=== PATIENT | female | born 1970 | race Caucasian/White ===

== ENCOUNTER 2016-02-13 14:13 | Emergency (ER) | payer OTHER ==
--- NOTE | 2016-02-13 14:57 | UC ---
Ear Complaint HPI - HPI Summary HPI Summary: The patient comes in today for: 1. Right ear pain: Onset: One week ago, onset slight pain. 4 days ago--significant worsening. Palliative/provocative: Heating pad helps. But, she has not been able to sleep at night. Quality: Sharp lasting a "second or two," and constant pounding. Region: Right with radiation down to the jaw. Severity: 6/10 Time: Constant. Associated symptoms: Hearing: Poor hearing in the right ear to begin with--lost hearing when diabetic. Discharge. Brown purulent discharge. Previous problems: None since a child. Fever: 99.8 at home today. High blood pressure: She is on lisinopril for this. She states that her blood pressure goes up when she is in pain. Home Rx: Advil and heating pad. She drove here. * - History of Current Complaint Chief Complaint: UCGeneralIllness Stated Complaint: pain in head/fever Time Seen by Provider: 02/13/16 14:49 Hx Obtained From: Patient Hx Last Menstrual Period: 1992 ?: No - Allergies/Home Medications Allergies/Adverse Reactions: Allergies Allergy/AdvReac Type Severity Reaction Status Date / Time Pneumococcal Vaccine Allergy Rash Verified 02/13/16 14:25 Oxybutynin AdvReac See Comment Verified 02/13/16 14:25 Paroxetine [From Paxil] AdvReac See Comment Verified 02/13/16 14:25 PMH/Surg Hx/FS Hx/Imm Hx Previously Healthy: No Endocrine History Of: Reports: Diabetes Denies: Thyroid Disease, Hyperthyroidism, Hypothyroidism, Dyslipidemia Cardiovascular History Of: Reports: Hypertension Denies: Cardiac Disorders, Pacemaker/ICD, Myocardial Infarction, Congestive Heart Failure, Atrial Fibrillation, Deep Vein Thrombosis, Bleeding Disorders Respiratory History Of: Denies: COPD, Asthma, Bronchitis, Pneumonia, Pulmonary Embolism GI/ History Of: Reports: Gastroesophageal Reflux, Kidney Stones - RT URETERAL , Renal Disease - She denies any renal failure. She had a stent put in left kidney Denies: Ulcer, Gastrointestinal Bleed, Gall Bladder Disease, Diverticulitis, Urosepsis Neurological History Of: Denies: TIA, CVA, Dementia, Seizures, Migraine Psychological History Of: Reports: Anxiety, Depression Denies: Bipolar Disorder, Schizophrenia, Post Traumatic Stress Disorder Cancer History Of: Denies: Lung Cancer, Colorectal Cancer, Breast Cancer, Prostate Cancer, Cervical Cancer Other History Of: Negative For: HIV, Hepatitis B, Hepatitis C, Anticoagulant Therapy - Surgical History Surgical History: Yes Surgery Procedure, Year, and Place: HYSTERECTOMY, APPENDECTOMY, CHOLECYSTECTOMY , KNEE OPERATIONS, EAR OPERATIONS, , KIDNEY STENTING (LEFT) - Family History Known Family History: Positive: Cardiac Disease, Hypertension - Social History Occupation: Unemployed Alcohol Use: None Substance Use Type: None Smoking Status (MU): Light Every Day Tobacco Smoker Type: Cigarettes Amount Used/How Often: 1 PPD - Immunization History Most Recent Influenza Vaccination: 01/11/14 Most Recent Tetanus Shot: unknown Most Recent Pneumonia Vaccination: 2013 Review of Systems Constitutional: Negative Skin: Negative Eyes: Negative ENT: Ear Ache Respiratory: Cough - Non-productive. Cardiovascular: Negative Gastrointestinal: Negative Genitourinary: Negative All Other Systems Reviewed And Are Negative: Yes Physical Exam Triage Information Reviewed: Yes Appearance: Well-Appearing, Well-Nourished, Pain Distress - She would grimace from time to time regarding her right ear pain. Vital Signs: Initial Vital Signs Temp 98.2 F 02/13/16 14:28 Pulse 128 02/13/16 14:28 Resp 18 02/13/16 14:28 BP 177/116 02/13/16 14:28 Pulse Ox 99 02/13/16 14:28 Vital Signs Reviewed: Yes Eyes: Positive: Conjunctiva Clear ENT: Positive: Hearing grossly normal, Other: - Right ear: Purulent discharge along the canal lui. Positive similar material behind the ear drum. No obvious perforation seen. Pulling on the right pinna made the pain worse. Also , tragal pressure was the same. Left ear: TM castellon and translucent.. Negative : Pharyngeal erythema, Nasal congestion, Nasal drainage Dental: Negative: Gross Decay/Caries @, Dental Fracture @ Neck: Positive: Supple, Nontender, No Lymphadenopathy, Other: - She had tenderness to palpation of the right anterior cervical chain, but no marked lymphadenopathy.. Negative: Nuchal Rigidity Respiratory: Positive: Lungs clear, No respiratory distress, No accessory muscle use. Negative: Rhonchi, Wheezing Cardiovascular: Positive: RRR, No Murmur Abdomen Description: Positive: Nontender, No Organomegaly, Soft. Negative: Distended, Guarding Musculoskeletal: Positive: Strength Intact, ROM Intact Neurological: Positive: Alert, Muscle Tone Normal Psychological: Positive: Age Appropriate Behavior, Consolable Skin: Negative: rashes, breakdown Ear Complaint Course/Dx - Course Course Of Treatment: The patient was told that I was concerned over her tachycardia in light of her diabetes, hypertension, and smoking history. However, she stated that this was not uncommon with her and she has been evaluated for it in the past. However, at times, it seemed she confused tachycardia and high blood pressure. However, she declined any EKG and referral to ER for further evaluation. She only wanted treatment for her ear and pain control. - Differential Dx/Diagnosis Provider Diagnoses: Right ear pain (otitis media, otitis externa). Tachycardia (etiology undetermined at this time--possibly pain related). Discharge - Discharge Plan Condition: Stable Disposition: HOME Patient Education Materials: Otitis Externa (ED), Otitis Media (ED) Referrals: [facility] [Outside] Additional Instructions: Please see your primary care provider in about three days to see how well you are doing. If you don't have a primary care provider, please contact the physician referral service. If you can't get in timely, please you may come back to see us until you can. If you get worse, please be seen sooner by us or the ER.
[2016-02-13 15:12] VITALS: BP 160/96
== END 2016-02-13 15:45 | disposition left against medical advice (07) ==
LOC: UCEAST 14:13
DX: H66.91 Otitis media, unspecified, right ear (principal); H60.91 Unspecified otitis externa, right ear; R00.0 Tachycardia, unspecified; F17.210 Nicotine dependence, cigarettes, uncomplicated
CPT/HCPCS: 99212; G0463

== ENCOUNTER 2016-03-20 11:41 | Emergency (ER) | payer SELFPAY ==
[2016-03-20] MEDS ORDERED: Ondansetron INJ* 2 MG/ML VIAL IV ONE (13:05)
[2016-03-20] MEDS ORDERED: HYDROmorphone INJ* 1 MG/ML CARPUJECT SYRINGE IV ONE (13:05)
[2016-03-20] MEDS ORDERED: Ketorolac INJ* 30 MG/ML 1 ML VIAL IV ONE (13:05)
[2016-03-20] MEDS ORDERED: Ondansetron INJ* 2 MG/ML VIAL ONE (13:24)
[2016-03-20] MEDS: NS 0.9% 1000 ML* 2,000 ML IV ONE (13:38)
[2016-03-20 13:52] LABS: Hematocrit 38 % (35-47); Hemoglobin 12.3 g/dl (12.0-16.0); Mean Corpuscular HGB Conc 33 g/dl (31-36); Mean Corpuscular Hemoglobin 25 pg (27-31); Mean Corpuscular Volume 77 fL (80-97); Mean Platelet Volume 8 um3 (7.4-10.4); Red Cell Distribution Width 18 % (10.5-15); White Blood Count 21.8 10^3/ul (3.5-10.8)
[2016-03-20 13:53] LABS: Comments Flag Yes
[2016-03-20 13:54] LABS: Add Diff/Slide Review? Slide Review Added
--- NOTE | 2016-03-20 14:02 | RAD ---
CLINICAL HISTORY: Right flank pain COMPARISON: January 06, 2016 TECHNIQUE: Multiple contiguous axial CT scans were obtained of the abdomen and pelvis, without intravenous contrast enhancement. Coronal and sagittal multiplanar reformations are submitted for review. Oral contrast was not administered. FINDINGS: The study is limited by the lack of intravenous contrast. This limits evaluation of the solid organs and vasculature. LUNG BASES: The lung bases are clear. LIVER: The liver is normal in shape, size, contour, and attenuation. BILE DUCTS: There is no intrahepatic or extrahepatic biliary dilatation. GALLBLADDER: The gallbladder is not visualized. Surgical clips are noted in the gallbladder fossa. PANCREAS: The pancreas is normal, without mass or ductal dilatation. SPLEEN: Normal in size and appearance. UPPER GI TRACT: Evaluation of the gastrointestinal tract is limited by incomplete gastric distention. The upper GI tract is unremarkable. SMALL BOWEL AND MESENTERY: Focally prominent small bowel is noted in the left hemiabdomen, which is felt to be an artifact of peristalsis. There is no obstruction. COLON: The colon is normal in contour, course, caliber. There is no pericolonic inflammatory change. ADRENALS: Normal bilaterally. KIDNEYS: A percutaneous nephrostomy catheter is noted on the left. The left ureteral calculus noted on previous examinations is not clearly evident on the current examination. The right, there is no appreciable hydronephrosis or nephrolithiasis BLADDER: The bladder is smooth in contour. PELVIC ORGANS: The pelvic organs are not visualized. AORTA: There is calcific atherosclerotic disease of the abdominal aorta and its branches, without aneurysmal dilatation IVC: Unremarkable LYMPH NODES: There is no lymphadenopathy by size criteria. ABDOMINAL WALL: There is no evidence for abdominal wall hernia. BONES AND SOFT TISSUES: There are minimal diffuse degenerative changes. OTHER: None IMPRESSION: 1. STATUS POST LEFT PERCUTANEOUS NEPHROSTOMY. 2. NO HYDRONEPHROSIS OR NEPHROLITHIASIS ON THE RIGHT.
[2016-03-20 14:09] LABS: Troponin I 0.03 ng/mL (<0.04)
[2016-03-20 14:10] LABS: C Reactive Protein 231.28 mg/L (< 5.00); Calcium 9.6 mg/dL (8.6-10.3); EGFR African American 49.8 (>60); EGFR Non-African American 38.7 (>60); Globulin 3.9 g/dL (2-4); Potassium 3.8 mmol/L (3.5-5.0); Total Bilirubin 0.6 mg/dL (0.2-1.0); Total Protein 7.9 g/dL (6.4-8.9)
[2016-03-20] MEDS ORDERED: Ciprofloxacin 400MG IVPREMIX(* 400 MG/200 ML BAG IVPB ONE (14:11)
[2016-03-20] MEDS ORDERED: Acetaminophen TAB* 325 MG PO ONE (14:13)
[2016-03-20 15:53] LABS: Urine Bacteria Absent (Absent); Urine Bilirubin Negative (Negative); Urine Glucose Negative (Negative); Urine Nitrite Negative (Negative)
--- NOTE | 2016-03-20 16:42 | ED ---
Alejo Kaufman Benjamin, scribed for Raul Peacock MD on 03/20/16 at 1320 . Abdominal Pain/Female - HPI Summary HPI Summary: 45yo female c/o severe right sided abd pain that radiates to right flank, groin , and down the right leg. Pt also reports fever of 103F and some CP. Currently has a left sided nephrostomy tube and chronic left sided pain from the tubes. Pt states that the right sided pain is acute however. Hx of kidney stones and urosepsis. - History of Current Complaint Chief Complaint: EDFlankPain Stated Complaint: FLANK PAIN Time Seen by Provider: 03/20/16 12:27 Hx Obtained From: Patient, Family/Heel Sprayer - Hx Last Menstrual Period: 1992 Onset/Duration: Sudden Onset, Lasting Days, Still Present Timing: Constant Severity Initially: Severe Severity Currently: Severe Pain Intensity: 9 Pain Scale Used: 0-10 Numeric Location: Discrete At: RLQ Radiates: Yes Radiates to: Flank - right, Other - groin, right leg Aggravating Factor(s): Movement, Other: - touch Alleviating Factor(s): Nothing Associated Signs and Symptoms: Positive: Fever, Chest Pain, Back Pain - right flank pain Allergies/Adverse Reactions: Allergies Allergy/AdvReac Type Severity Reaction Status Date / Time Pneumococcal Vaccine Allergy Rash Verified 02/13/16 14:25 Oxybutynin AdvReac See Comment Verified 02/13/16 14:25 Paroxetine [From Paxil] AdvReac See Comment Verified 02/13/16 14:25 PMH/Surg Hx/FS Hx/Imm Hx Endocrine/Hematology History: Reports: Hx Diabetes Denies: Hx Anticoagulant Therapy, Hx Thyroid Disease Cardiovascular History: Reports: Hx Hypertension Denies: Hx Congestive Heart Failure, Hx Deep Vein Thrombosis, Hx Myocardial Infarction, Hx Pacemaker/ICD Respiratory History: Denies: Hx Asthma, Hx Chronic Obstructive Pulmonary Disease (COPD), Hx Lung Cancer, Hx Pneumonia, Hx Pulmonary Embolism GI History: Reports: Other GI Disorders - Pancreatitis Denies: Hx Gall Bladder Disease, Hx Gastrointestinal Bleed, Hx Ulcer, Hx Urosepsis History: Reports: Hx Kidney Stones - RT URETERAL , Hx Renal Disease - She denies any renal failure. She had a stent put in left kidney, Other Problems/Disorders Denies: Hx Dialysis Sensory History: Reports: Hx Contacts or Glasses, Hx Hearing Problem - [place] right ear Opthamlomology History: Reports: Hx Contacts or Glasses Neurological History: Denies: Hx Dementia, Hx Migraine, Hx Seizures, Hx Transient Ischemic Attacks (TIA) Psychiatric History: Reports: Hx Anxiety, Hx Depression, Other Psychiatric Issues/Disorders - borderline personality disorder Denies: Hx Schizophrenia, Hx Bipolar Disorder - Surgical History Surgery Procedure, Year, and Place: HYSTERECTOMY, APPENDECTOMY, CHOLECYSTECTOMY , KNEE OPERATIONS, EAR OPERATIONS, , KIDNEY STENTING (LEFT) Infectious Disease History: No Infectious Disease History: Denies: Traveled Outside the [place] in Last 30 Days - Family History Known Family History: Positive: None, Cardiac Disease, Hypertension - Social History Alcohol Use: None Hx Substance Use: No Substance Use Type: Reports: None Hx Tobacco Use: Yes Smoking Status (MU): Light Every Day Tobacco Smoker Type: Cigarettes Amount Used/How Often: 1 PPD Review of Systems Positive: Fever ENT: Negative Positive: Chest Pain Respiratory: Negative Positive: Abdominal Pain - acute RLQ, chronic left side Positive: flank pain - right Musculoskeletal: Negative Skin: Negative Neurological: Negative Psychological: Normal All Other Systems Reviewed And Are Negative: Yes Physical Exam Triage Information Reviewed: Yes Vital Signs On Initial Exam: Initial Vitals Temp Pulse Resp BP Pulse Ox 103.1 F 141 28 155/95 98 03/20/16 11:52 03/20/16 11:52 03/20/16 11:52 03/20/16 11:52 03/20/16 11:52 Vital Signs Reviewed: Yes Appearance: Positive: Well-Appearing, Pain Distress - moderate, Obese Skin: Positive: Warm, Skin Color Reflects Adequate Perfusion, Dry Head/Face: Positive: Normal Head/Face Inspection Eyes: Positive: Normal ENT: Positive: Normal ENT inspection Neck: Positive: Supple, Nontender Respiratory/Lung Sounds: Positive: Clear to Auscultation, Breath Sounds Present Cardiovascular: Positive: RRR Abdomen Description: Positive: No Organomegaly, Soft, Other: - tenderness on right abdomen; nephrostomy tube placed on left side Bowel Sounds: Positive: Present Musculoskeletal: Positive: Strength/ROM Intact Neurological: Positive: Sensory/Motor Intact, Alert, Oriented to Person Place, Time, CN Intact II-III, Reflexes Intact Psychiatric: Positive: Anxious Diagnostics - Vital Signs Vital Signs Temp Pulse Resp BP Pulse Ox 03/20/16 11:52 103.1 F 141 28 155/95 98 - Laboratory Lab Results: Lab Results 03/20/16 03/20/16 03/20/16 Range/Units 13:40 13:40 13:40 WBC 21.8 H (3.5-10.8) 10^3/ul RBC 4.90 (4.0-5.4) 10^6/ul Hgb 12.3 (12.0-16.0) g/dl Hct 38 (35-47) % MCV 77 L (80-97) fL MCH 25 L (27-31) pg MCHC 33 (31-36) g/dl RDW 18 H (10.5-15) % Plt Count 244 (150-450) 10^3/ul MPV 8 (7.4-10.4) um3 Neut % (Auto) 83.1 H (38-83) % Lymph % (Auto) 8.6 L (25-47) % [place] % (Auto) 7.2 (1-9) % Eos % (Auto) 0.4 (0-6) % Baso % (Auto) 0.7 (0-2) % Absolute Neuts (auto) 18.1 H (1.5-7.7) 10^3/ul Absolute Lymphs (auto) 1.9 (1.0-4.8) 10^3/ul Absolute Monos (auto) 1.6 H (0-0.8) 10^3/ul Absolute Eos (auto) 0.1 (0-0.6) 10^3/ul Absolute Basos (auto) 0.2 (0-0.2) 10^3/ul Absolute Nucleated RBC 0.01 10^3/ul Nucleated RBC % 0.1 INR (Anticoag Therapy) 1.06 (0.89-1.11) APTT 31.1 (26.0-36.3) seconds Sodium 132 L (133-145) mmol/L Potassium 3.8 (3.5-5.0) mmol/L Chloride 102 (101-111) mmol/L Carbon Dioxide 21 L (22-32) mmol/L Anion Gap 9 (2-11) mmol/L BUN 16 (6-24) mg/dL Creatinine 1.45 H (0.51-0.95) mg/dL Est GFR ( Amer) 49.8 (>60) Est GFR (Non-Af Amer) 38.7 (>60) BUN/Creatinine Ratio 11.0 (8-20) Glucose 256 H (70-100) mg/dL Lactic Acid (0.5-2.0) mmol/L Calcium 9.6 (8.6-10.3) mg/dL Total Bilirubin 0.60 (0.2-1.0) mg/dL AST 9 L (13-39) U/L ALT 10 (7-52) U/L Alkaline Phosphatase 121 H (34-104) U/L Troponin I 0.03 (<0.04) ng/mL C-Reactive Protein 231.28 H (< 5.00) mg/L Total Protein 7.9 (6.4-8.9) g/dL Albumin 4.0 (3.2-5.2) g/dL Globulin 3.9 (2-4) g/dL Albumin/Globulin Ratio 1.0 (1-3) Urine Color Urine Appearance Urine pH (5-9) Ur Specific [place] (1.010-1.030) Urine Protein (Negative) Urine Ketones (Negative) Urine Blood (Negative) Urine Nitrate (Negative) Urine Bilirubin (Negative) Urine Urobilinogen (Negative) Ur Leukocyte Esterase (Negative) Urine WBC (Auto) (Absent) Urine RBC (Auto) (Absent) Ur Squamous Epith Cells (Absent) Urine Bacteria (Absent) Urine Glucose (Negative) 03/20/16 03/20/16 Range/Units 13:40 15:05 WBC (3.5-10.8) 10^3/ul RBC (4.0-5.4) 10^6/ul Hgb (12.0-16.0) g/dl Hct (35-47) % MCV (80-97) fL MCH (27-31) pg MCHC (31-36) g/dl RDW (10.5-15) % Plt Count (150-450) 10^3/ul MPV (7.4-10.4) um3 Neut % (Auto) (38-83) % Lymph % (Auto) (25-47) % [place] % (Auto) (1-9) % Eos % (Auto) (0-6) % Baso % (Auto) (0-2) % Absolute Neuts (auto) (1.5-7.7) 10^3/ul Absolute Lymphs (auto) (1.0-4.8) 10^3/ul Absolute Monos (auto) (0-0.8) 10^3/ul Absolute Eos (auto) (0-0.6) 10^3/ul Absolute Basos (auto) (0-0.2) 10^3/ul Absolute Nucleated RBC 10^3/ul Nucleated RBC % INR (Anticoag Therapy) (0.89-1.11) APTT (26.0-36.3) seconds Sodium (133-145) mmol/L Potassium (3.5-5.0) mmol/L Chloride (101-111) mmol/L Carbon Dioxide (22-32) mmol/L Anion Gap (2-11) mmol/L BUN (6-24) mg/dL Creatinine (0.51-0.95) mg/dL Est GFR ( Amer) (>60) Est GFR (Non-Af Amer) (>60) BUN/Creatinine Ratio (8-20) Glucose (70-100) mg/dL Lactic Acid 1.4 (0.5-2.0) mmol/L Calcium (8.6-10.3) mg/dL Total Bilirubin (0.2-1.0) mg/dL AST (13-39) U/L ALT (7-52) U/L Alkaline Phosphatase (34-104) U/L Troponin I (<0.04) ng/mL C-Reactive Protein (< 5.00) mg/L Total Protein (6.4-8.9) g/dL Albumin (3.2-5.2) g/dL Globulin (2-4) g/dL Albumin/Globulin Ratio (1-3) Urine Color Yellow Urine Appearance Cloudy Urine pH 6.0 (5-9) Ur Specific [place] 1.011 (1.010-1.030) Urine Protein 2+(100 mg/dl) H (Negative) Urine Ketones Negative (Negative) Urine Blood 1+ H (Negative) Urine Nitrate Negative (Negative) Urine Bilirubin Negative (Negative) Urine Urobilinogen Negative (Negative) Ur Leukocyte Esterase 3+ H (Negative) Urine WBC (Auto) 3+(>20/hpf) H (Absent) Urine RBC (Auto) 3+(>10/hpf) H (Absent) Ur Squamous Epith Cells Present H (Absent) Urine Bacteria Absent (Absent) Urine Glucose Negative (Negative) Result Diagrams: 03/20/16 13:40 03/20/16 13:40 Lab Statement: Any lab studies that have been ordered have been reviewed, and results considered in the medical decision making process. - CT CT A/P WO CT Interpretation: No Acute Changes - IMPRESSION: 1. STATUS POST LEFT PERCUTANEOUS NEPHROSTOMY. 2. NO HYDRONEPHROSIS OR NEPHROLITHIASIS ON THE RIGHT. CT Interpretation Completed By: Radiologist Abdominal Pain Fem Course/Dx - Course Course Of Treatment: Edna Weber presented to the ED with about 20 hours of right flank pain getting steadily worse. She was febrile, tachypneic and tachycardic on arrival. She has a history of kidney stones and has a left nephrostomy tube put in in [facility]. She received immediate IV fluids, antibiotics and underwent lab testing and CT scan. Her WBC's were elevated at 22K and her urine from the bladder was positive for WBC's and RBC's but not nitrites. Her HR improved but she continued to be tachy and she was transferred to [facility] as we have no urological coverage at this time. - Diagnoses Provider Diagnoses: Pyelonephritis, Severe sepsis - Provider Notifications Discussed Care Of Patient With: Dr. Branch - Urology [id number], Dr. Cordero - Hospitalist - [id number] Instructed by Provider To: Transfer - Critical Care Time Critical Care Time: 30-74 min Discharge - Discharge Plan Condition: Stable Disposition: TRANS HIGHER LVL OF CARE FAC The documentation as recorded by the Alejo harrell Benjamin accurately reflects the service I personally performed and the decisions made by , Raul Peacock MD.
[2016-03-20] MEDS ORDERED: HYDROmorphone INJ* 1 MG/ML CARPUJECT SYRINGE IV SLOW PU ONE (16:56)
[2016-03-20 17:40] VITALS: BP 101/66
== END 2016-03-20 17:50 | disposition short-term general hospital (02) ==
LOC: ED 11:41
DX: A41.9 Sepsis, unspecified organism (principal); R65.20 Severe sepsis without septic shock; N12 Tubulo-interstitial nephritis, not specified as acute or chronic; R10.31 Right lower quadrant pain; R07.9 Chest pain, unspecified; R50.9 Fever, unspecified; M54.9 Dorsalgia, unspecified; F17.210 Nicotine dependence, cigarettes, uncomplicated
CPT/HCPCS: 36415; 74176; 80053; 81003; 81015; 83605; 84484; 85025; 85610; 85730; 86140; 87040; 87077; 87086; 87186; 87205; 96374; 96375; 99282; A9270-GY; J0744; J1170; J1885; J2405

== ENCOUNTER → 2016-07-25 10:44 | Emergency (ER) | payer SELFPAY ==
[~2016-07-25 10:44] MED LIST: Morphine INJ* 4 MG/ML 1 ML SYRINGE IV ONE; NS 0.9% 1000 ML* 1,000 ML IV ONE; Ondansetron INJ* 2 MG/ML VIAL IV ONE; cefTRIAXone VIAL(*) 1,000 MG in NS 0.9% 50 ML* 50 ML IVPB ONE; cefTRIAXone(*) 1 GM in NS 0.9% 50 ML* 50 ML IVPB ONE
[2016-07-25 11:29] LABS: Hematocrit 39 % (35-47); Hemoglobin 12.4 g/dl (12.0-16.0); Mean Corpuscular HGB Conc 32 g/dl (31-36); Mean Corpuscular Hemoglobin 25 pg (27-31); Mean Corpuscular Volume 78 fL (80-97); Red Blood Count 5.04 10^6/ul (4.0-5.4); Red Cell Distribution Width 17 % (10.5-15); White Blood Count 20.6 10^3/ul (3.5-10.8)
--- NOTE | 2016-07-25 11:34 | RAD ---
Indication: Left flank pain. CT of the abdomen and pelvis was performed without oral or IV contrast demonstration. Comparison is made with previous exam dated March 20, 2016. Lung bases demonstrate no pleural fluid, nodules or masses. Heart is of normal size without evidence of pericardial effusion. The liver is normal in size. No focal lesions or intrahepatic duct dilatation is noted. Patient status post cholecystectomy. Common duct is not dilated. Pancreas demonstrates no mass or pancreatic duct dilatation. The spleen is normal in size. There is moderate degree of left hydronephrosis. The left nephrostomy tube has been removed. Hydroureter is noted with a calculi in the proximal left ureter measuring 7 mm in greatest dimension at the level of L3-L4. Perinephric infiltration of fat is noted consistent with calyceal rupture. The right kidney shows no hydronephrosis. Atherosclerotic aorta is noted. No dilated loops of bowel are noted. The colon is filled with stool. Small bowel demonstrates no abnormal dilatation. The urinary bladder is otherwise unremarkable. The patient appears to be status post hysterectomy. IMPRESSION: Moderate to severe left hydronephrosis with 7 mm calculi in the proximal left ureter. Perinephric infiltration of fat is noted consistent with calyceal rupture.
[2016-07-25 11:40] LABS: Albumin 3.9 g/dL (3.2-5.2); BUN/Creatinine Ratio 11.4 (8-20); C Reactive Protein 124.81 mg/L (< 5.00); Calcium 9.3 mg/dL (8.6-10.3); Comments Flag Yes; EGFR African American 59.9 (>60); EGFR Non-African American 46.6 (>60); Magnesium 1.8 mg/dL (1.9-2.7); Total Bilirubin 0.5 mg/dL (0.2-1.0); Total Protein 7.9 g/dL (6.4-8.9)
[2016-07-25 11:46] LABS: Add Diff/Slide Review? Slide Review Added
[2016-07-25 12:03] LABS: Mean Platelet Volume 8 um3 (7.4-10.4)
[2016-07-25 13:22] LABS: Potassium 4.3 mmol/L (3.5-5.0)
[2016-07-25 13:45] LABS: Urine Bacteria 1+ (Absent); Urine Bilirubin Negative (Negative); Urine Glucose Negative (Negative); Urine Nitrite Positive (Negative)
[2016-07-25] MEDS: NS 0.9% 1000 ML* 2,000 ML IV ONE (14:03)
--- NOTE | 2016-07-25 15:18 | ED ---
Hattie Kaufman Rebecca, scribed for Jonathan Avendano MD on 07/25/16 at 1051 . Abdominal Pain/Female - HPI Summary HPI Summary: Pt is a 46 y/o F who presents to ED c/o severe abdominal pain. Pain began suddenly 4 days ago and has been intermittent since onset, improving for a few days then worsening yesterday. Pain is in the LLQ and LUQ with radiation to the L flank. Pain is currently severe, ranked 9/10 and characterized as sharp. Sx aggravated and alleviated by nothing. Additionally c/o fever, N/V/D. Reports temperature was 102 last night, breaking this morning by taking 800 mg Advil at 0500. PMHx sepsis (4x) and kidney stones. Was diagnosed by [facility] with a 5-7 mm renal calculi on the left side. PSHx nephrostomy tube placement for 6 months, which fell out 3 weeks ago. She has been following up with Dr. Pitts at [facility]. - History of Current Complaint Chief Complaint: EDFlankPain Stated Complaint: FLANK PAIN Time Seen by Provider: 07/25/16 10:50 Hx Obtained From: Patient Hx Last Menstrual Period: 1992 Onset/Duration: Sudden Onset, Still Present, Worse Since - yesterday Timing: Intermittent Episode Lasting Severity Initially: Moderate Severity Currently: Severe Pain Intensity: 9 Pain Scale Used: 0-10 Numeric Location: Discrete At: LUQ, Discrete At: LLQ Radiates: Yes Radiates to: Flank - Left Character: Sharp Aggravating Factor(s): Nothing Alleviating Factor(s): Nothing Associated Signs and Symptoms: Positive: Fever, Nausea, Vomiting, Diarrhea Allergies/Adverse Reactions: Allergies Allergy/AdvReac Type Severity Reaction Status Date / Time Pneumococcal Vaccine Allergy Rash Verified 02/13/16 14:25 Oxybutynin AdvReac See Comment Verified 02/13/16 14:25 Paroxetine [From Paxil] AdvReac See Comment Verified 02/13/16 14:25 Home Medications: Home Medications Ascorbic Acid TAB* [Vitamin C TAB*] 250 mg PO DAILY 07/25/16 [History Confirmed 07/25/16] Ferrous Sulfate TAB* 325 mg PO DAILY 07/25/16 [History Confirmed 07/25/16] PMH/Surg Hx/FS Hx/Imm Hx Endocrine/Hematology History: Reports: Hx Diabetes Denies: Hx Anticoagulant Therapy, Hx Thyroid Disease Cardiovascular History: Reports: Hx Hypertension Denies: Hx Congestive Heart Failure, Hx Deep Vein Thrombosis, Hx Myocardial Infarction, Hx Pacemaker/ICD Respiratory History: Denies: Hx Asthma, Hx Chronic Obstructive Pulmonary Disease (COPD), Hx Lung Cancer, Hx Pneumonia, Hx Pulmonary Embolism GI History: Reports: Other GI Disorders - Pancreatitis Denies: Hx Gall Bladder Disease, Hx Gastrointestinal Bleed, Hx Ulcer, Hx Urosepsis History: Reports: Hx Kidney Stones - RT URETERAL , Hx Renal Disease - She denies any renal failure. She had a stent put in left kidney, Other Problems/Disorders Denies: Hx Dialysis Sensory History: Reports: Hx Contacts or Glasses, Hx Hearing Problem - [facility] right ear Opthamlomology History: Reports: Hx Contacts or Glasses Neurological History: Denies: Hx Dementia, Hx Migraine, Hx Seizures, Hx Transient Ischemic Attacks (TIA) Psychiatric History: Reports: Hx Anxiety, Hx Depression, Other Psychiatric Issues/Disorders - borderline personality disorder Denies: Hx Schizophrenia, Hx Bipolar Disorder - Surgical History Surgery Procedure, Year, and Place: HYSTERECTOMY, APPENDECTOMY, CHOLECYSTECTOMY , KNEE OPERATIONS, EAR OPERATIONS, , KIDNEY STENTING (LEFT) Infectious Disease History: No Infectious Disease History: Denies: Traveled Outside the [place] in Last 30 Days - Family History Known Family History: Positive: Cardiac Disease, Hypertension - Social History Alcohol Use: None Hx Substance Use: No Substance Use Type: Reports: None Hx Tobacco Use: Yes Smoking Status (MU): Light Every Day Tobacco Smoker Type: Cigarettes Amount Used/How Often: 1 PPD Review of Systems Positive: Fever - 102 last night, per pt Positive: Abdominal Pain - LLQ, LUQ, L flank, Vomiting, Diarrhea, Nausea All Other Systems Reviewed And Are Negative: Yes Physical Exam - Summary Physical Exam Summary: VITAL SIGNS: Reviewed. GENERAL: Patient is an obese female with acute distress secondary to L flank pain. She seems warm to touch. HEAD AND FACE: Normocephalic and atraumatic. EYES: PERRLA, EOMI x 2, No injected conjunctiva. EARS: Hearing grossly intact. Ear canals and tympanic membranes are WNL. MOUTH: She has multiple missing teeth and dry oral mucosa. NECK: Supple, trachea is midline, no adenopathy, no JVD. CHEST: Symmetric, no tenderness at palpation LUNGS: Clear to auscultation bilaterally. No wheezing or crackles. CVS: Tachycardic, S1 and S2 present, no murmurs or gallops appreciated. ABDOMEN: Soft and obese. Mild tenderness in the L flank area, positive costovertebral angle tenderness on the L side. Positive bowel sounds. No rebound no guarding, and no masses palpated. No abdominal bruit or pulsations. EXTREMITIES: FROM in all major joints, no edema, no cyanosis or clubbing. NEURO: Alert and oriented x 3. No acute neurological deficits. Speech is normal. SKIN: Dry and warm to touch. Triage Information Reviewed: Yes Vital Signs On Initial Exam: Initial Vitals Temp Pulse Resp Pulse Ox 97.7 F 124 20 100 07/25/16 10:45 07/25/16 10:45 07/25/16 10:45 07/25/16 10:45 Vital Signs Reviewed: Yes Diagnostics - Vital Signs Vital Signs Temp Pulse Resp BP Pulse Ox 07/25/16 10:47 97.7 F 125 20 214/128 100 07/25/16 10:45 97.7 F 124 20 100 - Laboratory Lab Results: Lab Results 07/25/16 07/25/16 07/25/16 Range/Units 11:16 11:16 11:16 WBC 20.6 H (3.5-10.8) 10^3/ul RBC 5.04 (4.0-5.4) 10^6/ul Hgb 12.4 (12.0-16.0) g/dl Hct 39 (35-47) % MCV 78 L (80-97) fL MCH 25 L (27-31) pg MCHC 32 (31-36) g/dl RDW 17 H (10.5-15) % Plt Count 295 (150-450) 10^3/ul MPV 8 (7.4-10.4) um3 Neut % (Auto) 82.2 (38-83) % Lymph % (Auto) 10.4 L (25-47) % [place] % (Auto) 6.1 (1-9) % Eos % (Auto) 0.7 (0-6) % Baso % (Auto) 0.6 (0-2) % Absolute Neuts (auto) 16.9 H (1.5-7.7) 10^3/ul Absolute Lymphs (auto) 2.1 (1.0-4.8) 10^3/ul Absolute Monos (auto) 1.3 H (0-0.8) 10^3/ul Absolute Eos (auto) 0.2 (0-0.6) 10^3/ul Absolute Basos (auto) 0.1 (0-0.2) 10^3/ul Absolute Nucleated RBC 0.01 10^3/ul Nucleated RBC % 0.1 Sodium 133 (133-145) mmol/L Potassium 4.3 (3.5-5.0) mmol/L Chloride 106 (101-111) mmol/L Carbon Dioxide 16 L (22-32) mmol/L Anion Gap 11 (2-11) mmol/L BUN 14 (6-24) mg/dL Creatinine 1.23 H (0.51-0.95) mg/dL Est GFR ( Amer) 59.9 (>60) Est GFR (Non-Af Amer) 46.6 (>60) BUN/Creatinine Ratio 11.4 (8-20) Glucose 192 H (70-100) mg/dL Lactic Acid 1.0 (0.5-2.0) mmol/L Calcium 9.3 (8.6-10.3) mg/dL Magnesium 1.8 L (1.9-2.7) mg/dL Total Bilirubin 0.50 (0.2-1.0) mg/dL AST 25 (13-39) U/L ALT 22 (7-52) U/L Alkaline Phosphatase 110 H (34-104) U/L Total Creatine Kinase 43 (10-223) U/L C-Reactive Protein 124.81 H (< 5.00) mg/L Total Protein 7.9 (6.4-8.9) g/dL Albumin 3.9 (3.2-5.2) g/dL Globulin 4.0 (2-4) g/dL Albumin/Globulin Ratio 1.0 (1-3) Lipase 28 (11.0-82.0) U/L Urine Color Urine Appearance Urine pH (5-9) Ur Specific [place] (1.010-1.030) Urine Protein (Negative) Urine Ketones (Negative) Urine Blood (Negative) Urine Nitrate (Negative) Urine Bilirubin (Negative) Urine Urobilinogen (Negative) Ur Leukocyte Esterase (Negative) Urine WBC (Auto) (Absent) Urine RBC (Auto) (Absent) Ur Squamous Epith Cells (Absent) Urine Bacteria (Absent) Urine Glucose (Negative) 07/25/16 Range/Units 13:15 WBC (3.5-10.8) 10^3/ul RBC (4.0-5.4) 10^6/ul Hgb (12.0-16.0) g/dl Hct (35-47) % MCV (80-97) fL MCH (27-31) pg MCHC (31-36) g/dl RDW (10.5-15) % Plt Count (150-450) 10^3/ul MPV (7.4-10.4) um3 Neut % (Auto) (38-83) % Lymph % (Auto) (25-47) % [place] % (Auto) (1-9) % Eos % (Auto) (0-6) % Baso % (Auto) (0-2) % Absolute Neuts (auto) (1.5-7.7) 10^3/ul Absolute Lymphs (auto) (1.0-4.8) 10^3/ul Absolute Monos (auto) (0-0.8) 10^3/ul Absolute Eos (auto) (0-0.6) 10^3/ul Absolute Basos (auto) (0-0.2) 10^3/ul Absolute Nucleated RBC 10^3/ul Nucleated RBC % Sodium (133-145) mmol/L Potassium (3.5-5.0) mmol/L Chloride (101-111) mmol/L Carbon Dioxide (22-32) mmol/L Anion Gap (2-11) mmol/L BUN (6-24) mg/dL Creatinine (0.51-0.95) mg/dL Est GFR ( Amer) (>60) Est GFR (Non-Af Amer) (>60) BUN/Creatinine Ratio (8-20) Glucose (70-100) mg/dL Lactic Acid (0.5-2.0) mmol/L Calcium (8.6-10.3) mg/dL Magnesium (1.9-2.7) mg/dL Total Bilirubin (0.2-1.0) mg/dL AST (13-39) U/L ALT (7-52) U/L Alkaline Phosphatase (34-104) U/L Total Creatine Kinase (10-223) U/L C-Reactive Protein (< 5.00) mg/L Total Protein (6.4-8.9) g/dL Albumin (3.2-5.2) g/dL Globulin (2-4) g/dL Albumin/Globulin Ratio (1-3) Lipase (11.0-82.0) U/L Urine Color Yellow Urine Appearance Clear Urine pH 6.0 (5-9) Ur Specific [place] 1.006 L (1.010-1.030) Urine Protein Negative (Negative) Urine Ketones Negative (Negative) Urine Blood 1+ H (Negative) Urine Nitrate Positive H (Negative) Urine Bilirubin Negative (Negative) Urine Urobilinogen Negative (Negative) Ur Leukocyte Esterase 3+ H (Negative) Urine WBC (Auto) 1+(6-10/hpf) H (Absent) Urine RBC (Auto) Trace(0-2/hpf) (Absent) Ur Squamous Epith Cells Present H (Absent) Urine Bacteria 1+ H (Absent) Urine Glucose Negative (Negative) Result Diagrams: 07/25/16 11:16 07/25/16 11:16 Lab Statement: Any lab studies that have been ordered have been reviewed, and results considered in the medical decision making process. - CT Abd/Pel CT CT Interpretation: Positive (See Comments) - Moderate to severe left hydronephrosis with 7 mm calculi in the proximal left ureter. Perinephric infiltration of fat is noted consistent with calyceal rupture. CT Interpretation Completed By: Radiologist - EKG 1225 Cardiac Rate: Tachycardia - 101 bpm EKG Rhythm: Sinus Tachycardia EKG Interpretation: No ST elevations Abdominal Pain Fem Course/Dx - Course Course Of Treatment: Pt is a 46 y/o F who presents to ED c/o severe abdominal pain. Pain began suddenly 4 days ago and has been intermittent since onset, improving for a few days then worsening yesterday. Pain is in the LLQ and LUQ with radiation to the L flank. Pain is currently severe, ranked 9/10 and characterized as sharp. Sx aggravated and alleviated by nothing. Additionally c/ o fever, N/V/D. Reports temperature was 102 last night, breaking this morning by taking 800 mg Advil at 0500. PMHx sepsis (4x) and kidney stones. Was diagnosed by [facility] with a 5-7 mm renal calculi on the left side. PSHx nephrostomy tube placement for 6 months, which fell out 3 weeks ago. She has been following up with Dr. Pitts at [facility]. Initially, vitals showed the patient was tachycardic, had low grade fever and slightly hypertensive probably secondary to pain. We obtained an IV access, patient was placed on monitor. Patient was initiated with IV fluids, Zofran for N/V and morphine for the pain. I chose morphine since the patient has hx of renal insufficiency. The patient was also started on Rocephin seeing as patient has a Hx of urosepsis. Test results show a WBC of 20.6, creatinine of 1.23, glucose of 192, consistent with her diabetes, CRP is 124. UA positive for a UTI. CT of the abdomen and pelvis shows a moderate to severe left hydronephrosis with a 7 mm calculi in the proximal L ureter, perinephric infiltration noted. The patient continued to have pain, therefore she was given another dose of morphine. I disclosed the case with Dr. Lopez. Seeing as he is not network professional and we have no urology cover, he reports to transfer patient to her primary urologist. I disclosed the case with Dr. Subramanian, covering for Dr. Garza, urologist for the patient. Dr. Subramanian accepted the patient for transfer to their facility. At this point, the patient is hemodynamically stable, AxOx3, therefore the patient will be transferred to [facility]. - Diagnoses Differential Diagnosis: Positive: Bowel Obstruction, Constipation, Diverticulitis, Ovarian Cyst, Renal Colic, Urinary Tract Infection Provider Diagnoses: UTI (urinary tract infection), Ureterolithiasis, urosepsis - Provider Notifications Discussed Care Of Patient With: Te Lopez Instructed by Provider To: Other - Advised that the patient is transferred to [facility], since that is where she has been receiving care. Discussed care of patient with Dr. Subramanian from [facility], who stated that he would look for a bed to see if he can accept her. Discharge - Discharge Plan Condition: Stable Disposition: TRANS HIGHER LVL OF CARE FAC Referrals: No Primary Care Phys,NOPCP [Primary Care Provider] - The documentation as recorded by the scribe, DiFabio,Kalpana accurately reflects the service I personally performed and the decisions made by me, Jonathan Avendano MD.
[2016-07-25 16:51] VITALS: BP 168/105
== END | disposition short-term general hospital (02) ==
LOC: ED 10:44
DX: R10.9 Unspecified abdominal pain (principal); R11.2 Nausea with vomiting, unspecified; R19.7 Diarrhea, unspecified; F17.210 Nicotine dependence, cigarettes, uncomplicated
CPT/HCPCS: 36415; 74176; 80053; 81003; 81015; 82550; 83605; 83690; 83735; 85025; 86140; 87040; 87086; 93005; 96374; 96375; 99285; J0696; J2270; J2405

== ENCOUNTER 2017-04-10 16:40 | Emergency (ER) | payer SELFPAY ==
[2017-04-10] MEDS ORDERED: HYDROmorphone INJ* 1 MG/ML CARPUJECT SYRINGE IV ONE ×2 (17:27→18:30)
[2017-04-10] MEDS ORDERED: NS 0.9% 1000 ML* 1,000 ML IV ONE (17:27)
[2017-04-10] MEDS ORDERED: Ondansetron INJ* 2 MG/ML VIAL IV ONE (17:27)
--- NOTE | 2017-04-10 18:07 | RAD ---
INDICATION: Severe abdominal pain since last night with progression. Post appendectomy, cholecystectomy, hysterectomy. Previous LEFT renal stenting. COMPARISON: July 25, 2016 CT. TECHNIQUE: Multidetector CT images were obtained from the lung bases to the ischial tuberosities. Evaluation of the viscera is limited without IV contrast. Multiplanar reformation. REPORT: Unremarkable visualized inferior thorax. Post cholecystectomy. Negative for biliary dilatation. 20 cm cephalocaudal liver without conspicuous focal lesions. Moderately atrophic pancreas. Unremarkable spleen. Negative for CT abnormality of the upper GI, small bowel, or colon. Post appendectomy. Negative for ascites or free air. Small fat-containing umbilical hernia without inflammatory change. Normal adrenal glands. 0.8 cm cortical cyst mid pole RIGHT kidney. 2 mm nonobstructing calyceal stone midpole RIGHT kidney. Severe LEFT renal cortical atrophy. 0.8 cm calyceal stone lower pole LEFT kidney. Negative for hydronephrosis. Unremarkable nondilated ureters and urinary bladder. Post hysterectomy. No suspicious adnexal region lesions. Unchanged indolent appearing 1.5 cm calcified nodule at the LEFT para midline pelvis. Negative for lymphadenopathy. Normal diameter abdominal aorta and iliac arteries with mild calcific plaque. Physiologic distention of the IVC. Negative for suspicious osseous lesions. IMPRESSION: 1. Mildly enlarged liver measuring up to 20 cm cephalocaudal without change. 2. Nephrolithiasis without hydronephrosis. Advanced cortical atrophy of the LEFT kidney with interval worsening. 3. Post cholecystectomy, appendectomy, hysterectomy. 4. Negative for lymphadenopathy.
[2017-04-10 18:17] LABS: ABS Basophils 0.1 10^3/ul (0-0.2); ABS Eosinophils 0.2 10^3/ul (0-0.6); ABS Lymphocytes 3.1 10^3/ul (1.0-4.8); ABS Monocytes 0.6 10^3/ul (0-0.8); ABS Neutrophils 7.1 10^3/ul (1.5-7.7); ABS Nucleated RBC 0 10^3/ul; Eosinophil % 1.9 % (0-6); Hematocrit 38 % (35-47); Hemoglobin 12.6 g/dl (12.0-16.0); Lymphocyte % 28.1 % (25-47); Mean Corpuscular HGB Conc 33 g/dl (31-36); Mean Corpuscular Hemoglobin 27 pg (27-31); Mean Corpuscular Volume 82 fL (80-97); Mean Platelet Volume 8 um3 (7.4-10.4); Nucleated Red Blood Cells % 0; Platelet Count 249 10^3/ul (150-450); Red Blood Count 4.69 10^6/ul (4.0-5.4); Red Cell Distribution Width 16 % (10.5-15); White Blood Count 11.1 10^3/ul (3.5-10.8)
[2017-04-10 18:30] LABS: EGFR Non-African American 42.2 (>60)
[2017-04-10 19:15] LABS: Urine Appearance Cloudy; Urine Blood Negative (Negative); Urine Color Yellow; Urine Ketones Negative (Negative); Urine Protein Negative (Negative); Urine Specific Gravity 1.008 (1.010-1.030); Urine Urobilinogen Negative (Negative)
[2017-04-10 19:21] VITALS: BP 119/73
--- NOTE | 2017-04-11 07:21 | ED ---
Ragini Kaufman Julia, scribed for Raul Peacock MD on 04/10/17 at 1713 . Abdominal Pain/Female - HPI Summary HPI Summary: This patient is a 46 year old F presenting to [facility] with a chief complaint of sudden gradually worsening RLQ and umbilical abdominal pain since 1:30 this morning that woke her from sleep. Patient reports diarrhea this morning. Patient denies nausea and vomiting. She states this pain is not similar to previous kidney stones or pancreatitis. Patient has had a hysterectomy, cholecystectomy, and an appendectomy. - History of Current Complaint Chief Complaint: EDAbdPain Stated Complaint: ABD PAIN Time Seen by Provider: 04/10/17 17:10 Hx Obtained From: Patient Hx Last Menstrual Period: 1992 Onset/Duration: Sudden Onset, Lasting Hours, Worse Since - 0130 Pain Intensity: 7 Pain Scale Used: 0-10 Numeric Location: Discrete At: RLQ, Umbilical Associated Signs and Symptoms: Positive: Diarrhea. Negative: Nausea, Vomiting Allergies/Adverse Reactions: Allergies Allergy/AdvReac Type Severity Reaction Status Date / Time MS Pneumococcal Vaccine Allergy Rash Verified 02/13/16 14:25 [Pneumococcal Vaccine] MS Oxybutynin [Oxybutynin] AdvReac See Comment Verified 02/13/16 14:25 MS Paroxetine [From Paxil] AdvReac See Comment Verified 02/13/16 14:25 PMH/Surg Hx/FS Hx/Imm Hx Endocrine/Hematology History: Reports: Hx Diabetes Denies: Hx Anticoagulant Therapy, Hx Thyroid Disease Cardiovascular History: Reports: Hx Hypertension Denies: Hx Congestive Heart Failure, Hx Deep Vein Thrombosis, Hx Myocardial Infarction, Hx Pacemaker/ICD Respiratory History: Denies: Hx Asthma, Hx Chronic Obstructive Pulmonary Disease (COPD), Hx Lung Cancer, Hx Pneumonia, Hx Pulmonary Embolism GI History: Reports: Other GI Disorders - Pancreatitis Denies: Hx Gall Bladder Disease, Hx Gastrointestinal Bleed, Hx Ulcer, Hx Urosepsis History: Reports: Hx Kidney Stones - RT URETERAL , Hx Renal Disease - She denies any renal failure. She had a stent put in left kidney, Other Problems/Disorders Denies: Hx Dialysis Sensory History: Reports: Hx Contacts or Glasses, Hx Hearing Problem - [facility] right ear Opthamlomology History: Reports: Hx Contacts or Glasses Neurological History: Denies: Hx Dementia, Hx Migraine, Hx Seizures, Hx Transient Ischemic Attacks (TIA) Psychiatric History: Reports: Hx Anxiety, Hx Depression, Other Psychiatric Issues/Disorders - borderline personality disorder Denies: Hx Schizophrenia, Hx Bipolar Disorder - Surgical History Surgery Procedure, Year, and Place: HYSTERECTOMY, APPENDECTOMY, CHOLECYSTECTOMY , KNEE OPERATIONS, EAR OPERATIONS, , KIDNEY STENTING (LEFT) Infectious Disease History: No Infectious Disease History: Denies: Traveled Outside the [place] in Last 30 Days - Family History Known Family History: Positive: Cardiac Disease, Hypertension - Social History Alcohol Use: None Hx Substance Use: No Substance Use Type: Reports: None Hx Tobacco Use: Yes Smoking Status (MU): Light Every Day Tobacco Smoker Type: Cigarettes Amount Used/How Often: 1 PPD Review of Systems Positive: Abdominal Pain, Diarrhea. Negative: Vomiting, Nausea Positive: no symptoms reported All Other Systems Reviewed And Are Negative: Yes Physical Exam - Summary Physical Exam Summary: Appearance: The patient is well-nourished in no acute distress and in no acute pain. Skin: The skin is warm and dry and skin color reflects adequate perfusion. HEENT: The head is normocephalic and atraumatic. The pupils are equal and reactive. The conjunctivae are clear and without drainage. Nares are patent and without drainage. Mouth reveals moist mucous membranes and the throat is without erythema and exudate. The external ears are intact. The ear canals are patent and without drainage. The tympanic membranes are intact. Neck: the neck is supple with full range of motion and non-tender. There are no carotid bruits. There is no neck vein distension. Respiratory: Chest is non-tender. Lungs are clear to auscultation and breath sounds are symmetrical and equal. Cardiovascular: Heart is regular rate and rhythm. There is no murmur or rub auscultated. There is no peripheral edema and pulses are symmetrical and equal. Abdomen: The abdomen is soft with RLQ tenderness. There are normal bowel sounds heard in all four quadrants and there is no organomegaly palpated. Musculoskeletal: There is no back tenderness noted. Extremities are non-tender with full range of motion. There is good capillary refill. There is no peripheral edema or calf tenderness elicited. Neurological: Patient is alert and oriented to person, place and time. The patient has symmetrical motor strength in all four extremities. Cranial nerves are grossly intact. Deep tendon reflexes are symmetrical and equal in all four extremities. Psychiatric: The patient has an appropriate affect and does not exhibit any anxiety or depression. Triage Information Reviewed: Yes Vital Signs On Initial Exam: Initial Vitals Temp Pulse Resp BP Pulse Ox 99.1 F 92 20 146/99 99 04/10/17 16:53 04/10/17 16:53 04/10/17 16:53 04/10/17 16:53 04/10/17 16:53 Vital Signs Reviewed: Yes Diagnostics - Vital Signs Vital Signs Temp Pulse Resp BP Pulse Ox 04/10/17 16:53 99.1 F 92 20 146/99 99 - Laboratory Lab Results: Lab Results 04/10/17 04/10/17 04/10/17 Range/Units 18:05 18:05 18:05 WBC 11.1 H (3.5-10.8) 10^3/ul RBC 4.69 (4.0-5.4) 10^6/ul Hgb 12.6 (12.0-16.0) g/dl Hct 38 (35-47) % MCV 82 (80-97) fL MCH 27 (27-31) pg MCHC 33 (31-36) g/dl RDW 16 H (10.5-15) % Plt Count 249 (150-450) 10^3/ul MPV 8 (7.4-10.4) um3 Neut % (Auto) 64.3 (38-83) % Lymph % (Auto) 28.1 (25-47) % [place] % (Auto) 5.0 (0-7) % Eos % (Auto) 1.9 (0-6) % Baso % (Auto) 0.7 (0-2) % Absolute Neuts (auto) 7.1 (1.5-7.7) 10^3/ul Absolute Lymphs (auto) 3.1 (1.0-4.8) 10^3/ul Absolute Monos (auto) 0.6 (0-0.8) 10^3/ul Absolute Eos (auto) 0.2 (0-0.6) 10^3/ul Absolute Basos (auto) 0.1 (0-0.2) 10^3/ul Absolute Nucleated RBC 0 10^3/ul Nucleated RBC % 0 Sodium 136 (133-145) mmol/L Potassium 4.5 (3.5-5.0) mmol/L Chloride 107 (101-111) mmol/L Carbon Dioxide 21 L (22-32) mmol/L Anion Gap 8 (2-11) mmol/L BUN 26 H (6-24) mg/dL Creatinine 1.34 H (0.51-0.95) mg/dL Est GFR ( Amer) 54.3 (>60) Est GFR (Non-Af Amer) 42.2 (>60) BUN/Creatinine Ratio 19.4 (8-20) Glucose 140 H (70-100) mg/dL Lactic Acid 1.5 (0.5-2.0) mmol/L Calcium 9.2 (8.6-10.3) mg/dL Total Bilirubin 0.20 (0.2-1.0) mg/dL AST 9 L (13-39) U/L ALT 8 (7-52) U/L Alkaline Phosphatase 100 (34-104) U/L C-Reactive Protein 11.46 H (< 5.00) mg/L Total Protein 7.2 (6.4-8.9) g/dL Albumin 3.8 (3.2-5.2) g/dL Globulin 3.4 (2-4) g/dL Albumin/Globulin Ratio 1.1 (1-3) Lipase 18 (11.0-82.0) U/L Urine Color Urine Appearance Urine pH (5-9) Ur Specific [place] (1.010-1.030) Urine Protein (Negative) Urine Ketones (Negative) Urine Blood (Negative) Urine Nitrate (Negative) Urine Bilirubin (Negative) Urine Urobilinogen (Negative) Ur Leukocyte Esterase (Negative) Urine WBC (Auto) (Absent) Urine RBC (Auto) (Absent) Ur Squamous Epith Cells (Absent) Urine Bacteria (Absent) Urine Glucose (Negative) 04/10/17 Range/Units 18:47 WBC (3.5-10.8) 10^3/ul RBC (4.0-5.4) 10^6/ul Hgb (12.0-16.0) g/dl Hct (35-47) % MCV (80-97) fL MCH (27-31) pg MCHC (31-36) g/dl RDW (10.5-15) % Plt Count (150-450) 10^3/ul MPV (7.4-10.4) um3 Neut % (Auto) (38-83) % Lymph % (Auto) (25-47) % [place] % (Auto) (0-7) % Eos % (Auto) (0-6) % Baso % (Auto) (0-2) % Absolute Neuts (auto) (1.5-7.7) 10^3/ul Absolute Lymphs (auto) (1.0-4.8) 10^3/ul Absolute Monos (auto) (0-0.8) 10^3/ul Absolute Eos (auto) (0-0.6) 10^3/ul Absolute Basos (auto) (0-0.2) 10^3/ul Absolute Nucleated RBC 10^3/ul Nucleated RBC % Sodium (133-145) mmol/L Potassium (3.5-5.0) mmol/L Chloride (101-111) mmol/L Carbon Dioxide (22-32) mmol/L Anion Gap (2-11) mmol/L BUN (6-24) mg/dL Creatinine (0.51-0.95) mg/dL Est GFR ( Amer) (>60) Est GFR (Non-Af Amer) (>60) BUN/Creatinine Ratio (8-20) Glucose (70-100) mg/dL Lactic Acid (0.5-2.0) mmol/L Calcium (8.6-10.3) mg/dL Total Bilirubin (0.2-1.0) mg/dL AST (13-39) U/L ALT (7-52) U/L Alkaline Phosphatase (34-104) U/L C-Reactive Protein (< 5.00) mg/L Total Protein (6.4-8.9) g/dL Albumin (3.2-5.2) g/dL Globulin (2-4) g/dL Albumin/Globulin Ratio (1-3) Lipase (11.0-82.0) U/L Urine Color Yellow Urine Appearance Cloudy Urine pH 6.0 (5-9) Ur Specific [place] 1.008 L (1.010-1.030) Urine Protein Negative (Negative) Urine Ketones Negative (Negative) Urine Blood Negative (Negative) Urine Nitrate Positive A (Negative) Urine Bilirubin Negative (Negative) Urine Urobilinogen Negative (Negative) Ur Leukocyte Esterase 2+ A (Negative) Urine WBC (Auto) 2+(11-20/hpf) A (Absent) Urine RBC (Auto) Absent (Absent) Ur Squamous Epith Cells Present A (Absent) Urine Bacteria 1+ A (Absent) Urine Glucose Negative (Negative) Result Diagrams: 04/10/17 18:05 04/10/17 18:05 Lab Statement: Any lab studies that have been ordered have been reviewed, and results considered in the medical decision making process. - CT A/P CT Interpretation Completed By: Radiologist - 1. Mildly enlarged liver measuring up to 20 cm cephalocaudal without change. 2. Nephrolithiasis without hydronephrosis. Advanced cortical atrophy of the LEFT kidney with interval worsening. 3. Post cholecystectomy, appendectomy, hysterectomy. 4. Negative for lymphadenopathy. ED Physician has reviewed this report. Abdominal Pain Fem Course/Dx - Course Course Of Treatment: Ms. Weber presented with a right periumbilical pain for several hours. She was tender without rebound or guarding and her labs and CT were normal. The etilogy of her pain is uncertain and I recommended a short course of pain medications and close F/U. - Diagnoses Provider Diagnoses: Abdominal pain Discharge - Discharge Plan Condition: Stable Disposition: HOME Prescriptions: HYDROcodone/ACETAMIN 5-325 MG* [[place] 5-325 TAB*] 1 tab PO Q6H PRN #20 tab MDD 4 PRN Reason: Pain Patient Education Materials: Abdominal Pain (ED) Additional Instructions: Follow up with a new primary care physician this week. The documentation as recorded by the Ragini harrell Julia accurately reflects the service I personally performed and the decisions made by me, Raul Peacock MD.
--- NOTE | 2017-04-12 09:08 | PN ---
Progress Note - Progress Note Date of Service: 04/10/17 Note: patient was called at 9:00am and answered. stated patient was still sleeping and she would call back. preliminary urine results, and urinalysis at ED visit shows UTI >100,000 of e. coli. patient was seen for lower abdominal pain and give norco. not given any antibiotics. will wait for patient to return phone call. Macrobid was sent to [facility] pharmacy to begin treatment. Will wait for final culture sensitivities to see if antibiotic is susceptible. If patient does not return phone call, will try again and/or send a letter. no further action required at this time.
--- NOTE | 2017-04-13 09:21 | PN ---
Progress Note - Progress Note Date of Service: 04/10/17 Note: Urine grew Escherichia coli over 100,000 Patient was placed on Macrobid Called and spoke with on 04/13/17 He agrees to go pick up man the antibiotic for her Sensitive to Macrobid Nothing further at this time, Jamia SCANLON
== END 2017-04-10 19:20 | disposition home or self-care (01) ==
LOC: ED 16:40
DX: R10.31 Right lower quadrant pain (principal); N39.0 Urinary tract infection, site not specified; B96.20 Unspecified Escherichia coli [E. coli] as the cause of diseases classified elsewhere
CPT/HCPCS: 36415; 74176; 80053; 81003; 81015; 83605; 83690; 85025; 86140; 87077; 87086; 87186; 96360; 96374; 96375; 96376; 99283; J1170; J2405

== ENCOUNTER 2017-07-01 13:07 | Emergency (ER) | payer SELFPAY ==
[2017-07-01] MEDS ORDERED: NS 0.9% 1000 ML* 1,000 ML IV ONE ×2 (13:33→16:31)
[2017-07-01] MEDS ORDERED: HYDROmorphone INJ* 2 MG/ML CARPUJECT SYRINGE IV SLOW PU ONE ×4 (13:33→18:56)
[2017-07-01] MEDS ORDERED: Ketorolac INJ* 30 MG/ML 1 ML VIAL IV PUSH ONE (13:34)
[2017-07-01 14:06] LABS: ABS Basophils 0.1 10^3/ul (0-0.2); ABS Eosinophils 0.4 10^3/ul (0-0.6); ABS Lymphocytes 3.6 10^3/ul (1.0-4.8); ABS Monocytes 0.9 10^3/ul (0-0.8); ABS Neutrophils 12.2 10^3/ul (1.5-7.7); ABS Nucleated RBC 0 10^3/ul; Eosinophil % 2.2 % (0-6); Hematocrit 43 % (35-47); Hemoglobin 13.8 g/dl (12.0-16.0); Lymphocyte % 20.8 % (25-47); Mean Corpuscular HGB Conc 33 g/dl (31-36); Mean Corpuscular Hemoglobin 27 pg (27-31); Mean Corpuscular Volume 84 fL (80-97); Mean Platelet Volume 8.4 um3 (7.4-10.4); Nucleated Red Blood Cells % 0.1; Platelet Count 295 10^3/ul (150-450); Red Blood Count 5.08 10^6/ul (4.0-5.4); Red Cell Distribution Width 16 % (10.5-15); White Blood Count 17.2 10^3/ul (3.5-10.8)
--- NOTE | 2017-07-01 15:36 | RAD ---
INDICATION: Severe LEFT flank pain. Post cholecystectomy, appendectomy, hysterectomy. History of urolithiasis with previous LEFT kidney stenting. COMPARISON: April 10, 2017 TECHNIQUE: Multidetector CT images were obtained from the lung bases to the ischial tuberosities. Evaluation of the viscera is limited without IV contrast. Multiplanar reformation. REPORT: Unremarkable visualized inferior thorax. Top normal liver size. Patchy geographic decreased density at the liver consistent with fatty infiltration. Post cholecystectomy. Negative for biliary dilatation. Unremarkable pancreas and spleen. Small hiatal hernia. Negative for CT abnormality of the remainder of the upper GI or small bowel. Post appendectomy. Unremarkable colon. Negative for ascites or free air. Small fat-containing umbilical hernia without inflammatory change. Normal adrenal glands. Small cortical cyst at the midpole of the RIGHT kidney. Negative for RIGHT urolithiasis, hydronephrosis, or ureteral abnormality. Advanced atrophy of the LEFT kidney without significant change. Unchanged 0.6 cm lower pole calyceal stone. Negative for hydronephrosis. Unremarkable LEFT ureter. Moderately distended urinary bladder with fluid and gas in the lumen. Post hysterectomy. Unremarkable adnexal regions. Unchanged 1.5 cm partially calcified nodule in the LEFT para midline pelvis adjacent to the sigmoid colon compared with a CT from September 25, 2015 without concern. Negative for lymphadenopathy. Mild sclerotic calcification of normal diameter abdominal aorta and iliac arteries. Physiologic partial distention of the IVC. Negative for suspicious osseous lesions. IMPRESSION: 1. Nonobstructing stone inferior pole atrophic LEFT kidney without change. Negative for hydronephrosis or perinephric inflammatory change. 2. No acute pathologic process of the alimentary tract evident. 3. Fatty infiltration of the liver.
[2017-07-01] MEDS ORDERED: Ciprofloxacin 400MG IVPREMIX(* 400 MG/200 ML BAG IVPB ONE (16:29)
[2017-07-01] MEDS ORDERED: Metoclopramide IV* 5 MG/ML 2 ML VIAL IV SLOW PU ONE (16:55)
[2017-07-01 17:05] LABS: Urine Appearance Turbid; Urine Blood Negative (Negative); Urine Color Yellow; Urine Ketones Negative (Negative); Urine Protein 2+(100 mg/dL) (Negative); Urine Specific Gravity 1.018 (1.010-1.030); Urine Urobilinogen Negative (Negative)
--- NOTE | 2017-07-01 18:23 | ED ---
Liang Kaufman Elizabeth scribed for Stephen Hudson MD on 07/01/17 at 1411 . GI/ HPI - HPI Summary HPI Summary: This patient is a 47 year old F presenting to [facility] with a chief complaint of left flank pain and left groin pain since 3 days ago. The patient rates the pain 10/10 in severity. Symptoms aggravated by nothing. Symptoms alleviated by nothing. Patient denies fever, inability to urinate, hematuria. The patient reports hx of kidney stones in the left kidney and notes she had a 9mm stone approximately 1 month ago. The patient has severe diabetes and hx of sepsis. She has been previously diagnosed with atrophy in her left kidney. - History of Current Complaint Chief Complaint: EDUrogenitalProblems Time Seen by Provider: 07/01/17 13:27 Stated Complaint: LT FLANK PAIN Hx Obtained From: Patient, Family/Department Supervisor Hx Last Menstrual Period: 1992 Onset/Duration: Started Days Ago - 3 days ago, Still Present Timing: Constant, Lasting Days Severity: Moderate Current Severity: Moderate Pain Intensity: 10 Location of Pain: Groin - left groin, Flank - left flank Associated Signs and Symptoms: Negative: Hematuria Aggravating Factor(s): Nothing Alleviating Factor(s): Nothing - Additional Pertinent History Primary Care Physician: [id number] - Allergy/Home Medications Allergies/Adverse Reactions: Allergies Allergy/AdvReac Type Severity Reaction Status Date / Time MS Pneumococcal Vaccine Allergy Rash Verified 02/13/16 14:25 [Pneumococcal Vaccine] MS Oxybutynin [Oxybutynin] AdvReac See Comment Verified 02/13/16 14:25 MS Paroxetine [From Paxil] AdvReac See Comment Verified 02/13/16 14:25 Home Medications: Home Medications Amitriptyline TAB* [Elavil TAB*] 300 mg PO BEDTIME 07/01/17 [History Confirmed 07/01/17] Famotidine TAB* [Pepcid 20 MG TAB*] 20 mg PO DAILY 07/01/17 [History Confirmed 07/01/17] Insulin GLARGINE(*) [Lantus(*)] 30 units SUBCUT QPM 07/01/17 [History Confirmed 07/01/17] Lisinopril TAB* [Prinivil TAB*] 40 mg PO DAILY 07/01/17 [History Confirmed 07/01] Metoprolol Tartrate TAB* [Lopressor TAB*] 50 mg PO BID 07/01/17 [History Confirmed 07/01/17] PMH/Surg Hx/FS Hx/Imm Hx Endocrine/Hematology History: Reports: Hx Diabetes Denies: Hx Anticoagulant Therapy, Hx Thyroid Disease Cardiovascular History: Reports: Hx Hypertension Denies: Hx Congestive Heart Failure, Hx Deep Vein Thrombosis, Hx Myocardial Infarction, Hx Pacemaker/ICD Respiratory History: Denies: Hx Asthma, Hx Chronic Obstructive Pulmonary Disease (COPD), Hx Lung Cancer, Hx Pneumonia, Hx Pulmonary Embolism GI History: Reports: Other GI Disorders - Pancreatitis Denies: Hx Gall Bladder Disease, Hx Gastrointestinal Bleed, Hx Ulcer, Hx Urosepsis History: Reports: Hx Kidney Stones - RT URETERAL , left kidney 05/2017, Hx Renal Disease - She had a stent put in left kidney. Atrophy in left kidney Denies: Hx Dialysis Sensory History: Reports: Hx Contacts or Glasses, Hx Hearing Problem - [facility] right ear Opthamlomology History: Reports: Hx Contacts or Glasses Neurological History: Denies: Hx Dementia, Hx Migraine, Hx Seizures, Hx Transient Ischemic Attacks (TIA) Psychiatric History: Reports: Hx Anxiety, Hx Depression, Other Psychiatric Issues/Disorders - borderline personality disorder Denies: Hx Schizophrenia, Hx Bipolar Disorder - Surgical History Surgery Procedure, Year, and Place: HYSTERECTOMY, APPENDECTOMY, CHOLECYSTECTOMY , KNEE OPERATIONS, EAR OPERATIONS, , KIDNEY STENTING (LEFT) Infectious Disease History: No Infectious Disease History: Denies: Traveled Outside the [place] in Last 30 Days - Family History Known Family History: Positive: None, Cardiac Disease, Hypertension - Social History Alcohol Use: None Hx Substance Use: No Substance Use Type: Reports: None Hx Tobacco Use: Yes Smoking Status (MU): Light Every Day Tobacco Smoker Type: Cigarettes Amount Used/How Often: 1 PPD Review of Systems Negative: Fever, Chills Negative: Erythema Negative: Sore Throat Negative: Chest Pain Negative: Shortness Of Breath, Cough Negative: Abdominal Pain, Vomiting, Nausea Positive: flank pain - left flank pain. Negative: dysuria, hematuria Musculoskeletal: Other - left groin pain Negative: Myalgia, Edema Negative: Rash Neurological: Other - NEGATIVE DIZZINESS All Other Systems Reviewed And Are Negative: Yes Physical Exam - Summary Physical Exam Summary: Constitutional: Well-developed, Well-nourished, Alert. (-) Distressed Skin: Warm, Dry HENT: Normocephalic; Atraumatic Eyes: Conjunctiva normal Neck: Musculoskeletal ROM normal neck. (-) JVD, (-) Stridor, (-) Tracheal deviation Cardio: Rhythm regular, rate normal, Heart sounds normal; Intact distal pulses; The pedal pulses are 2+ and symmetric. Radial pulses are 2+ and symmetric. (-) Murmur Pulmonary/Chest wall: Effort normal. (-) Respiratory distress, (-) Wheezes, (-) Rales Abd: Soft, Exquisite left CVA tenderness, (-) Distension, (-) Guarding, (-) Rebound Musculoskeletal: (-) Edema Lymph: (-) Cervical adenopathy Neuro: Alert, Oriented x3 Psych: Mood and affect Normal Triage Information Reviewed: Yes Vital Signs On Initial Exam: Initial Vitals Temp Pulse Resp BP Pulse Ox 99.1 F 150 20 150/107 98 07/01/17 13:19 07/01/17 13:19 07/01/17 13:19 07/01/17 13:19 07/01/17 13:19 Vital Signs Reviewed: Yes Diagnostics - Vital Signs Vital Signs Temp Pulse Resp BP Pulse Ox 07/01/17 13:43 28 07/01/17 13:19 99.1 F 150 20 150/107 98 - Laboratory Lab Results: Lab Results 07/01/17 Range/Units 13:44 WBC 17.2 H (3.5-10.8) 10^3/ul RBC 5.08 (4.0-5.4) 10^6/ul Hgb 13.8 (12.0-16.0) g/dl Hct 43 (35-47) % MCV 84 (80-97) fL MCH 27 (27-31) pg MCHC 33 (31-36) g/dl RDW 16 H (10.5-15) % Plt Count 295 (150-450) 10^3/ul MPV 8.4 (7.4-10.4) um3 Neut % (Auto) 71.2 (38-83) % Lymph % (Auto) 20.8 L (25-47) % [place] % (Auto) 5.2 (0-7) % Eos % (Auto) 2.2 (0-6) % Baso % (Auto) 0.6 (0-2) % Absolute Neuts (auto) 12.2 H (1.5-7.7) 10^3/ul Absolute Lymphs (auto) 3.6 (1.0-4.8) 10^3/ul Absolute Monos (auto) 0.9 H (0-0.8) 10^3/ul Absolute Eos (auto) 0.4 (0-0.6) 10^3/ul Absolute Basos (auto) 0.1 (0-0.2) 10^3/ul Absolute Nucleated RBC 0 10^3/ul Nucleated RBC % 0.1 Result Diagrams: 07/01/17 13:44 07/01/17 13:44 Lab Statement: Any lab studies that have been ordered have been reviewed, and results considered in the medical decision making process. - CT CT Abd/Pelvis CT Interpretation: Positive (See Comments) - IMPRESSION: 1. Nonobstructing stone inferior pole atrophic LEFT kidney without change. Negative for hydronephrosis or perinephric inflammatory change. 2. No acute pathologic process of the alimentary tract evident. 3. Fatty infiltration of the liver. CT Interpretation Completed By: Radiologist Re-Evaluation - Re-Evaluation 1st re-eval Re-Evaluation Time: 16:20 Change: Improved Comment: The patient produced a small amount of cloudy, malodorous urine with gravel in it. GIGU Course/Dx - Course Course Of Treatment: This patient is a 47 year old F presenting to [facility] with a chief complaint of left flank pain and left groin pain since 3 days ago. The patient reports hx of kidney stones in the left kidney and notes she had a 9mm stone approximately 1 month ago. The patient has severe diabetes and hx of sepsis. She has been previously diagnosed with atrophy in her left kidney. CT Abd/Pelvis reveals, per radiologist, 1. Nonobstructing stone inferior pole atrophic LEFT kidney without change. Negative for hydronephrosis or perinephric inflammatory change. 2. No acute pathologic process of the alimentary tract evident. 3. Fatty infiltration of the liver. ED physician has reviewed this radiology report and discussed the results with the radiologist. Test results with no significant abnormalities except for elevated lactic acid and abnormal creatinine. In the ED course the patient was given Dilaudid, IV fluids, Toradol , Reglan, and Cipro. Upon re-evaluation, the patient had produced a small amount of cloudy, malodorous urine with gravel in it. We discussed patient care with Dr. Ku and they recommended the patient be brought to the ER at [facility]. Discussed patient care with Dr. Vegas, who recommended the patient be directly admitted to [facility], Discussed patient care with Dr. Rand, who agreed to admit the patient to [facility]. The patient is diagnosed with possible infected kidney stone, pyelonephritis, and acute renal failure. The patient will be transferred to [facility] and directly admitted. The patient is agreeable with this plan. - Diagnoses Provider Diagnoses: Pyelonephritis, Acute renal failure, Kidney stone - Physician Notifications Discussed Care Of Patient With: William Vegas Time Discussed With Above Provider: 17:15 Instructed by Provider To: Other - At 16:[address] Ku, from [facility], who recommended the patient be brought to their emergency department. At 17:[address] Vegas, from [facility], who recommended the patient be directly admitted to [facility]. At 17:[address] Rand, from [facility], who agreed to admit the patient. Discharge - Sign-Out/Discharge Documenting (check all that apply): Discharge/Admit/Transfer - Discharge Plan Condition: Stable Disposition: TRANS HIGHER LVL OF CARE FAC Discharge Disposition Comment: Transfer to [facility] The documentation as recorded by the Liang harrell Elizabeth accurately reflects the service I personally performed and the decisions made by , Stephen Hudson MD.
[2017-07-02 11:54] VITALS: BP 120/70
--- NOTE | 2017-07-03 06:36 | PN ---
Progress Note - Progress Note Date of Service: 07/03/17 Note: urine preliminary culture grew E coli >100,000 and klesbieslla pneumonia. patient was transfer to [facility]. had [facility] faxed results to facility.
--- NOTE | 2017-07-14 07:55 | ED ---
Liang Kaufman Elizabeth, scribed for Stephen Hudson MD on 07/01/17 at 1858 . Re-Evaluation - Re-Evaluation 1st re-eval Re-Evaluation Time: 16:20 Change: Improved Comment: The patient produced a small amount of cloudy, malodorous urine with gravel in it. 2nd re-eval Re-Evaluation Time: 18:57 Change: Worse Comment: The patient is in pain again. She will be given another dose of Dilaudid. Course/Dx - Course Course Of Treatment: This patient is a 47 year old F presenting to [facility] with a chief complaint of left flank pain and left groin pain since 3 days ago. The patient reports hx of kidney stones in the left kidney and notes she had a 9mm stone approximately 1 month ago. The patient has severe diabetes and hx of sepsis. She has been previously diagnosed with atrophy in her left kidney. CT Abd/Pelvis reveals, per radiologist, 1. Nonobstructing stone inferior pole atrophic LEFT kidney without change. Negative for hydronephrosis or perinephric inflammatory change. 2. No acute pathologic process of the alimentary tract evident. 3. Fatty infiltration of the liver. ED physician has reviewed this radiology report and discussed the results with the radiologist. Test results with no significant abnormalities except for elevated lactic acid and abnormal creatinine. In the ED course the patient was given Dilaudid, IV fluids, Toradol , Reglan, and Cipro. Upon re-evaluation, the patient had produced a small amount of cloudy, malodorous urine with gravel in it. We discussed patient care with Dr. Ku and they recommended the patient be brought to the ER at [facility]. Discussed patient care with Dr. Vegas, who recommended the patient be directly admitted to [facility], Discussed patient care with Dr. Rand, who agreed to admit the patient to [facility]. The patient is diagnosed with possible infected kidney stone, pyelonephritis, and acute renal failure. The patient will be transferred to [facility] and directly admitted. The patient is agreeable with this plan. - Diagnoses Provider Diagnoses: Pyelonephritis, Acute renal failure, Kidney stone - Provider Notifications Time Discussed With Above Provider: 17:15 Instructed by Provider To: Other - At 16:[address] Ku, from [facility], who recommended the patient be brought to their emergency department. At 17:[address] Vegas, from [facility], who recommended the patient be directly admitted to [facility]. At 17:[address] Rand, from [facility], who agreed to admit the patient. Discharge - Sign-Out/Discharge Documenting (check all that apply): Discharge/Admit/Transfer - Discharge Plan Condition: Stable Disposition: TRANS HIGHER LVL OF CARE FAC Referrals: No Primary Care Phys,NOPCP [Primary Care Provider] - - Billing Disposition and Condition Condition: STABLE Disposition: Trans Higher Lvl of Care Fac The documentation as recorded by the Liang harrell Elizabeth accurately reflects the service I personally performed and the decisions made by , Stephen Hudson MD.
== END 2017-07-01 19:15 | disposition short-term general hospital (02) ==
LOC: ED 13:07
DX: N12 Tubulo-interstitial nephritis, not specified as acute or chronic (principal); N17.9 Acute kidney failure, unspecified; N20.0 Calculus of kidney; F17.210 Nicotine dependence, cigarettes, uncomplicated; Z88.7 Allergy status to serum and vaccine; Z88.8 Allergy status to other drugs, medicaments and biological substances
CPT/HCPCS: 36415; 74176; 80053; 81003; 81015; 83605; 83690; 85025; 86140; 87077; 87086; 87186; 96365; 96366; 96375; 96376; 99284; J0744; J1170; J1885; J2765

== ENCOUNTER 2018-01-11 12:12 | Inpatient (IN) | payer SELFPAY ==
[2018-01-11] MEDS ORDERED: Ondansetron INJ* 2 MG/ML VIAL IV ONE (12:30)
[2018-01-11] MEDS ORDERED: Morphine VIAL* 4 MG/ML VIAL (1 ml vial) IV ONE (12:32)
--- NOTE | 2018-01-11 12:55 | ED ---
GI/ HPI - HPI Summary HPI Summary: This pt is a 47 y/o female presenting to [facility] c/o left sided abd pain radiating to left flank x3 days. Pt notes hx of kidney stones. Pt additionally reports nausea, vomiting, dysuria, decreased urine output. Pt denies black stools, bloody stools, chest pain, SOB, fever, chills. She states 1 week ago she had bloody bowel movements, but denies any today. She notes she has been unable to get checked out because her insurance was taken away about 1 month ago. Pt states she has never had a colonoscopy. PMHx internal bleeding, cholecystectomy, kidney stones. Allergic to Paxil. - History of Current Complaint Chief Complaint: EDFlankPain Time Seen by Provider: 01/11/18 12:24 Stated Complaint: LEFT SIDE FLANK PAIN Hx Obtained From: Patient Hx Last Menstrual Period: 1992 Onset/Duration: Started Days Ago - 3, Still Present Timing: Lasting Days - 3 Current Severity: Severe Pain Intensity: 8 Location of Pain: Flank - left, Other - left sided abd pain Associated Signs and Symptoms: Positive: Nausea, Vomiting, Dysuria, Flank Pain - left, Abdominal Pain - left sided, Other: - POS: decreased urine output. Negative: Constipation, Black Tarry Stool, Bright Red Blood w/Stool, Blood w/ Stool, Diarrhea, Fever, Chills, Chest Pain Aggravating Factor(s): Nothing Alleviating Factor(s): Nothing - Additional Pertinent History Primary Care Physician: [id number] - Allergy/Home Medications Allergies/Adverse Reactions: Allergies Allergy/AdvReac Type Severity Reaction Status Date / Time oxybutynin Allergy Night Verified 01/11/18 12:18 Terrors paroxetine [From Paxil] Allergy Seizures Verified 01/11/18 12:18 pneumococcal vaccine Allergy Rash Verified 01/11/18 12:18 Home Medications: Home Medications Insulin GLARGINE(*) [Lantus(*)] 30 units SUBCUT QPM 01/11/18 [History Confirmed 01/11/18] metFORMIN* [Glucophage 500 MG TAB *] 1,000 mg PO BID 01/11/18 [History Confirmed 01/11/18] PMH/Surg Hx/FS Hx/Imm Hx Endocrine/Hematology History: Reports: Hx Diabetes Denies: Hx Anticoagulant Therapy, Hx Thyroid Disease Cardiovascular History: Reports: Hx Hypertension Denies: Hx Congestive Heart Failure, Hx Deep Vein Thrombosis, Hx Myocardial Infarction, Hx Pacemaker/ICD Respiratory History: Denies: Hx Asthma, Hx Chronic Obstructive Pulmonary Disease (COPD), Hx Lung Cancer, Hx Pneumonia, Hx Pulmonary Embolism GI History: Reports: Other GI Disorders - Pancreatitis Denies: Hx Gall Bladder Disease, Hx Gastrointestinal Bleed, Hx Ulcer, Hx Urosepsis History: Reports: Hx Kidney Stones - RT URETERAL , left kidney 05/2017, Hx Renal Disease - She had a stent put in left kidney. Atrophy in left kidney, Other Problems/Disorders Denies: Hx Dialysis Sensory History: Reports: Hx Contacts or Glasses, Hx Hearing Problem - QUILEUTE right ear Opthamlomology History: Reports: Hx Contacts or Glasses Neurological History: Denies: Hx Dementia, Hx Migraine, Hx Seizures, Hx Transient Ischemic Attacks (TIA) Psychiatric History: Reports: Hx Anxiety, Hx Depression, Other Psychiatric Issues/Disorders - borderline personality disorder Denies: Hx Schizophrenia, Hx Bipolar Disorder - Surgical History Surgery Procedure, Year, and Place: HYSTERECTOMY, APPENDECTOMY, CHOLECYSTECTOMY , KNEE OPERATIONS, EAR OPERATIONS, , KIDNEY STENTING (LEFT) Infectious Disease History: No Infectious Disease History: Denies: Traveled Outside the [place] in Last 30 Days - Family History Known Family History: Positive: Cardiac Disease, Hypertension - Social History Alcohol Use: Occasionally Hx Substance Use: No Substance Use Type: Reports: None Hx Tobacco Use: Yes Smoking Status (MU): Light Every Day Tobacco Smoker Type: Cigarettes Amount Used/How Often: 1 PPD Review of Systems Negative: Fever, Chills Negative: Chest Pain Negative: Shortness Of Breath Positive: Abdominal Pain, Vomiting, Nausea. Negative: Diarrhea, Other - constipation, black stools, bloody stools Genitourinary: Other - decreased urine output Positive: dysuria, flank pain - left All Other Systems Reviewed And Are Negative: Yes Physical Exam - Summary Physical Exam Summary: VITAL SIGNS: Reviewed. GENERAL: Patient is a well-developed and nourished female. Patient is in distress secondary to pain. HEAD AND FACE: Normocephalic and atraumatic. EYES: PERRLA, EOMI x 2, No injected conjunctiva. EARS: Hearing grossly intact. Ear canals and tympanic membranes are WNL. MOUTH: Oropharynx within normal limits. NECK: Supple, trachea is midline, no adenopathy, no JVD. CHEST: Symmetric, no tenderness at palpation LUNGS: Clear to auscultation bilaterally. No wheezing or crackles. CVS: RRR, S1 and S2 present, no murmurs or gallops appreciated. ABDOMEN: Soft. No signs of distention. Positive bowel sounds. No rebound no guarding, and no masses palpated. No abdominal bruit or pulsations. Left costovertebral angle tenderness. Left flank tenderness / EXTREMITIES: FROM in all major joints, no edema, no cyanosis or clubbing. NEURO: Alert and oriented x 3. No acute neurological deficits. Speech is normal. SKIN: Dry and warm Triage Information Reviewed: Yes Vital Signs On Initial Exam: Initial Vitals Temp Pulse Resp BP Pulse Ox 98.1 F 92 18 150/105 96 01/11/18 12:13 01/11/18 12:13 01/11/18 12:13 01/11/18 12:13 01/11/18 12:13 Vital Signs Reviewed: Yes Diagnostics - Vital Signs Vital Signs Temp Pulse Resp BP Pulse Ox 01/11/18 12:13 98.1 F 92 18 150/105 96 - Laboratory Result Diagrams: 01/11/18 12:43 01/11/18 12:43 Lab Statement: Any lab studies that have been ordered have been reviewed, and results considered in the medical decision making process. - CT Abdomen/Pelvis CT CT Interpretation Completed By: Radiologist Summary of CT Findings: IMPRESSION: Atrophic left kidney. Calculi in the left renal collecting syste measuring up to 6 mm. No obstructive uropathy is noted. Hepatic steatosis. No significant change is noted since July 01, 2017. Dr. Avendano has reviewed this report. - EKG 12:56 Cardiac Rate: Tachycardia - at 121 bpm EKG Rhythm: Sinus Tachycardia EKG Comparison: No Significant Change - similar to prior EKG on 07/25/16. Summary of EKG Findings: No ST elevations. GIGU Course/Dx - Course Assessment/Plan: This pt is a 47 y/o female presenting to [facility] c/o left sided abd pain radiating to left flank x3 days. Pt notes hx of kidney stones. Pt additionally reports nausea, vomiting, dysuria, decreased urine output. Pt denies black stools, bloody stools, chest pain, SOB, fever, chills. She states 1 week ago she had bloody bowel movements, but denies any today. She notes she has been unable to get checked out because her insurance was taken away about 1 month ago. Pt states she has never had a colonoscopy. PMHx internal bleeding, cholecystectomy, kidney stones. Allergic to Paxil. Blood work without any significant abnormality, except for increased BUN of 34 creatinine 1.87, glucose 254, carbon dioxide is 16. Alkaline phosphatase is 107 CRP of 12.6 and lipase 220. In the course the patient was given IV fluids, morphine for the pain, Zofran for the nausea and vomiting, and fentanyl for the pain. Because of the increased BUN creatinine he would have to go and have an abdominal pelvic CT without contrast. Abdomen and pelvic CT impression: Atrophic left kidney, calculating the left renal collecting system measuring up to 6 mm. No obstructive uropathy noted. Hepatic steatosis. The patient continues to be nauseous and also the pain has increased therefore I will give another dose of fentanyl for the pain. She will be also be given Reglan for nausea and vomiting. Because of the continuous nausea and increase in BUN/creatinine as well as increase in lipase I discussed my physical exam and findings with Dr. Daniels from the hospital services and accepted the patient for admission. At this point the patient is hemodynamically stable alert and oriented 3. - Diagnoses Provider Diagnoses: Intractable left upper quadrant abdominal pain, Nausea and vomiting, Renal failure (ARF), acute on chronic - Physician Notifications Discussed Care Of Patient With: Vijay Daniels - hospitalist Time Discussed With Above Provider: 14:50 Instructed by Provider To: Admit As Inpatient Discharge - Sign-Out/Discharge Documenting (check all that apply): Patient Departure - Admit to [facility] [place] - Discharge Plan Condition: Stable Disposition: ADMITTED TO [facility] - Billing Disposition and Condition Condition: STABLE Disposition: Admitted to [facility] - Attestation Statements Document Initiated by Scribe: Yes Documenting Scribe: Sydney Cantu Provider For Whom Madelyn is Documenting (Include Credential): Jonathan Avendano MD Scribe Attestation: Sydney Kaufman, scribed for Jonathan Avendano MD on 01/11/18 at 1848. Scribe Documentation Reviewed: Yes Provider Attestation: The documentation as recorded by the [email or web address] accurately reflects the service I personally performed and the decisions made by me, Jonathan Avendano MD Status of Scribe Document: Viewed
[2018-01-11 13:02] LABS: ABS Basophils 0.1 10^3/ul (0-0.2); ABS Eosinophils 0.2 10^3/ul (0-0.6); ABS Lymphocytes 2.3 10^3/ul (1.0-4.8); ABS Monocytes 0.5 10^3/ul (0-0.8); ABS Neutrophils 7.7 10^3/ul (1.5-7.7); ABS Nucleated RBC 0 10^3/ul; Eosinophil % 1.8 %; Hematocrit 42 % (35-47); Hemoglobin 14.1 g/dl (12.0-16.0); Lymphocyte % 21.2 %; Mean Corpuscular HGB Conc 33 g/dl (31-36); Mean Corpuscular Hemoglobin 28 pg (27-31); Mean Corpuscular Volume 85 fL (80-97); Mean Platelet Volume 8.5 fL (7.4-10.4); Nucleated Red Blood Cells % 0; Platelet Count 273 10^3/ul (150-450); Red Blood Count 5.02 10^6/ul (4.00-5.40); Red Cell Distribution Width 14 % (10.5-15); White Blood Count 10.8 10^3/ul (3.5-10.8)
[2018-01-11 13:14] LABS: EGFR Non-African American 28.6 (>60)
[2018-01-11] MEDS ORDERED: fentaNYL* 50 MCG/ML 2 ML VIAL (100 MCG VIAL) IV SLOW PU ONE (13:31)
[2018-01-11] MEDS ORDERED: NS 0.9% 1000 ML* 1,000 ML IV ONE (14:25)
[2018-01-11] MEDS ORDERED: Famotidine TAB* 20 MG PO PRN (15:51)
[2018-01-11] MEDS ORDERED: Dextrose 50% Syringe 50 ML* 25 GM/50 ML SYRINGE IV PUSH PRN (15:52)
[2018-01-11] MEDS ORDERED: HYDROmorphone INJ1* 1 MG/ML SYRINGE IV SLOW PU PRN (15:53)
[2018-01-11] MEDS: Pantoprazole IV* 40 MG IV SCH (17:04)
[2018-01-11] MEDS: NS 0.9% 1000 ML* 1,000 ML IV SCH (17:09)
[2018-01-11] MEDS: Insulin LISPRO* 1 UNITS UNIT SUBCUT SCH (17:17)
[2018-01-11 20:08] LABS: Urine Appearance Turbid; Urine Blood 1+ (Negative); Urine Color Yellow; Urine Ketones Negative (Negative); Urine Protein 2+(100 mg/dL) (Negative); Urine Red Blood Cell 2+(6-10/hpf) (Absent); Urine Specific Gravity 1.018 (1.010-1.030); Urine Urobilinogen Negative (Negative); Urine White Blood Cell 3+(>20/hpf) (Absent)
[2018-01-11] MEDS: Amitriptyline TAB* 100 MG PO SCH (21:04)
[2018-01-11] MEDS: HYDROmorphone INJ1* 1 MG/ML SYRINGE IV SLOW PU PRN (21:05)
[2018-01-11] MEDS: Heparin VIAL(*) 5000 UNITS/ML VIAL (FIVE THOUSAND) SUBCUT SCH (21:06)
--- NOTE | 2018-01-11 22:51 | HP ---
HISTORY AND PHYSICAL: DATE OF ADMISSION: 01/11/18. PRIMARY CARE PROVIDER: Primary care provider was Dr. Bragg. Due to loss of insurance, now [facility]. ATTENDING PHYSICIAN WHILE IN THE HOSPITAL: Dr. Vijay Daniels * (dictated by Bonnie Horton, KIP). CHIEF COMPLAINT: 1. Abdominal pain. 2. Nausea and vomiting. HISTORY OF PRESENT ILLNESS: Ms. Weber is a 47-year-old female with a past medical history significant for diabetes, hypertension, nephrolithiasis with sepsis, depression, anxiety, and chronic renal failure, who presented to the emergency room with a complaint of left lower back pain x3 days, now radiating to the front and diffuse abdominal pain centralizing over the mid epigastric region. She also reports a history of pancreatitis. The patient also reports that she has had a cough x2 weeks with green brownish secretions. She does report nausea and vomiting. Denies any fever. Does report chills x10 days. Also reports constipation, she did have 1 episode several days ago with blood around the stool. No further episodes. She does report that the mid epigastric pain is sharp. She does have increased pain with movement. Does report decreased appetite, shortness of breath, cough. She does also report some burning with urination. She reports difficulty swallowing x3 years. She denies any focal weakness or sensory loss. Denies any visual complaints. Denies any arthralgias, myalgias. Denies any rashes or lesions. Denies any psychosis or anxiety. Denies any hemoptysis. Denies any diarrhea or abdominal pain. Denies fevers. While in the emergency room, the patient continued to have diffuse abdominal pain and mildly elevated lipase level with nausea and vomiting due to the concerns of dehydration and the patient unable to tolerate oral medications for pain management, we were asked to see and evaluate for admission. PAST MEDICAL HISTORY: 1. Diabetes. 2. Hypertension. 3. Nephrolithiasis with sepsis. 4. Depression. 5. Anxiety. 6. Chronic renal failure. 7. History of pancreatitis x3. PAST SURGICAL HISTORY: 1. Appendectomy. 2. . 3. Hysterectomy. 4. Cholecystectomy. HOME MEDICATIONS: Include: 1. Lisinopril 40 mg p.o. daily. 2. Metoprolol 50 mg p.o. daily. 3. Pepcid 20 mg p.o. daily. 4. Metformin 1000 mg p.o. b.i.d. 5. Elavil 300 mg at bedtime. 6. The patient used to take Lantus 30 units subcu, but has not taken this medication in over 3 months, as she is unable to afford this due to loss of insurance. FAMILY HISTORY: Mother with a history of hypertension and stroke. Mother with a history of diabetes and sister with a history of breast cancer. SOCIAL HISTORY: The patient reports she smokes a pack a day x20 years. She denies any alcohol or illicit drug use. She is and lives with her , surrogate decision maker in the event she is unable to make her own decisions is her . She is a full code. REVIEW OF SYSTEMS: There was no documented fever. She does report decreased appetite x1 day. Denies any chest pain or edema. Does report occasional cough. Denies hemoptysis. She does report some shortness of breath. Does report nausea and vomiting. Denies any diarrhea. She does report significant diffuse abdominal pain, mostly centralized in the mid epigastric. Denies any hematuria. Does report pain with urination. Denies any focal weakness or sensory loss. Denies any visual complaints. She does report difficulty swallowing x3 years. Denies any arthralgias or myalgias, rashes or lesions, psychosis or anxiety. PHYSICAL EXAMINATION GENERAL: At this time, Ms. Weber is a 47-year-old female. She appears moderately uncomfortable. Resting on the stretcher in the emergency room. Her color is pink. VITAL SIGNS: Blood pressure 113/82, heart rate is 95, O2 saturation 97%, temperature is 98.1. HEENT: Head is atraumatic, normocephalic. Eyes: EOMs are intact. Sclerae anicteric and not pale. Oral mucosa appears to be dry. NECK: Supple. LUNGS: Clear to auscultation bilaterally. No wheezes, rales or rhonchi. CARDIAC: S1, S2. Regular rate and rhythm. No murmurs, rubs or gallops. ABDOMEN: Soft. Bowel sounds are present x4. Hypoactive. Abdomen with diffuse tenderness noted to the left flank, left lower ribs, right lower ribs, and mid epigastric region with palpation. Mild suprapubic tenderness with palpation. EXTREMITIES: Pulses are +2 bilaterally. She is able to move all 4 extremities with 5/5 strength. NEUROLOGIC: She is awake, alert, and oriented x3. Speech is clear. Thought process is intact. No gross focal deficits. SKIN: Intact. DIAGNOSTIC STUDIES/LAB DATA: WBCs are 10.8, RBCs 5.02, hemoglobin 14.1, hematocrit of 42, platelet count is 273. Sodium 135, potassium 4.0, chloride 109, carbon dioxide is 16, anion gap is 10, BUN is 34, creatinine 1.87, glucose is 254, lactic acid 1.0. ASTs are 13, ALTs are 16, alkaline phosphatase is 107 , troponin 0.01. C- reactive protein is 12.61. Lipase is 220. Acetaminophen less than 15, serum alcohol less than 10. She had a CT of the abdomen and pelvis. Radiologist's impression: Atrophic left kidney calculi in the renal collecting system measuring up to 6 mm. No obstructive uropathy is noted. Hepatic stenosis. No significant change since 07/01/17, and the CT shows no dilated loops of bowel as well. She had an electrocardiogram, which showed sinus tachycardia at a rate of 121. Some mild ST depression noted in V2, in lead 1 as well as V1. I suspect this is related to demand ischemia. ASSESSMENT AND PLAN: Ms. Weber is a 47-year-old female, who presented to the emergency room with complaints of diffuse abdominal pain, nausea and vomiting. We were asked to see and evaluate her to her abdominal pain. She will be admitted to observation for: 1. Abdominal pain. I suspect this could possibly be related to pancreatitis. The patient has had pancreatitis 3 times in the past. She reports nausea and vomiting at home and diffuse severe abdominal pain that started on her left flank area related to the left abdomen and now is centralized and mid epigastric pain. She does have pain to bilateral lower ribs with palpation. We will continue her on IV fluids at 125 mL per hour and she will have Dilaudid as needed for pain. Also within the differential is UTI, as the patient does report burning with urination. UA is currently pending. If the UA is positive, we will treat her with IV antibiotics. We will repeat BNP in the a.m. We will give her Zofran as needed for nausea and placed her on a clear liquid diet. 2. Cough and congestion. I will get a chest x-ray to rule out any pathology. I suspect this is related to upper respiratory tract infection. She has been afebrile and her O2 saturation has been 97% on room air. Suspect lower rib area pain may be related to costochondritis. 3. Diabetes. We will place her Accu-Chek a.c. and start her on lispro sliding scale. I will hold her metformin now. She is not currently taking Lantus at home x3 months, so I will hold Lantus at this time. 4. Hypertension. I am going to hold her lisinopril. We will continue her metoprolol at this time. 5. Chronic renal failure, stage IV. The patient does have a known history of nephrolithiasis. She did have a CT of the abdomen and pelvis. There is no obstructing stone at this point. I will get her UA is currently pending. We will continue to monitor and avoid nephrotoxic medications. 6. Fluid, electrolytes, and nutrition. She can have a clear liquid diet. 7. Code status: She is a full code. 8. DVT prophylaxis: I will place her on heparin subcu q.8 hours. 9. Disposition: The patient will be placed under observation for abdominal pain. TIME SPENT: Time spent on this admission was 60 minutes, greater than half that time was spent with the patient and her daughter obtaining my history and physical, the other half the time was spent going over my plan of care and implementing my plan of care. I have discussed this with my attending, Dr. Vijay Daniels; he is in agreement with my plan. BONNIE HORTON, KIP [id number]/[facility] #: [id number] JELENA
[2018-01-11] MEDS: cefTRIAXone(*) 1 GM in NS 0.9% 50 ML* 50 ML IVPB SCH (23:29)
[2018-01-12] MEDS ORDERED: NS 0.9% 1000 ML* 1,000 ML IV ONE ×2 (00:43→08:01)
[2018-01-12] MEDS: NS 0.9% 1000 ML* 1,000 ML IV SCH ×3 (01:50→22:51)
[2018-01-12 05:35] LABS: ABS Basophils 0 10^3/ul (0-0.2); ABS Eosinophils 0.1 10^3/ul (0-0.6); ABS Lymphocytes 1.7 10^3/ul (1.0-4.8); ABS Monocytes 0.4 10^3/ul (0-0.8); ABS Neutrophils 3.1 10^3/ul (1.5-7.7); ABS Nucleated RBC 0 10^3/ul; Eosinophil % 2.8 %; Hematocrit 35 % (35-47); Hemoglobin 11.4 g/dl (12.0-16.0); Lymphocyte % 32.2 %; Mean Corpuscular HGB Conc 33 g/dl (31-36); Mean Corpuscular Hemoglobin 28 pg (27-31); Mean Corpuscular Volume 85 fL (80-97); Mean Platelet Volume 8.2 fL (7.4-10.4); Nucleated Red Blood Cells % 0.2; Platelet Count 169 10^3/ul (150-450); Red Blood Count 4.06 10^6/ul (4.00-5.40); Red Cell Distribution Width 15 % (10.5-15); White Blood Count 5.3 10^3/ul (3.5-10.8)
[2018-01-12 05:52] LABS: EGFR Non-African American 43.9 (>60)
[2018-01-12] MEDS ORDERED: oxyCODONE/Acetamin 5/325 MG* TAB PO PRN (05:55)
[2018-01-12] MEDS: Heparin VIAL(*) 5000 UNITS/ML VIAL (FIVE THOUSAND) SUBCUT SCH ×3 (06:29→22:33)
[2018-01-12] MEDS: Insulin LISPRO* 1 UNITS UNIT SUBCUT SCH ×3 (08:15→19:35)
--- NOTE | 2018-01-12 08:37 | PN ---
Subjective Date of Service: 01/12/18 Interval History: Call received this morning due to low SBP of 80. NS bolus ordered with following NS 150/hr After bolus SBP increased, but later decreased into 90s after receiving pain medication. On assessment patient is lying in bed and tearful. Reports pain in left back radiating to upper abd bilaterally is "7" out of 10. Reports 0.5 mg of Dilaudid is not helping pain and reports she usually needs 2 mg IV dilaudid. Patient denies nausea, vomiting, diarrhea. Reports prior to admission she had a stool with blood mucous. She reports this is not new as this has been happening intermittently for some time. Had planned colonoscopy and endoscopy with provider in [place], but lost her insurance so did not follow up. Patient has known kidney disease and reports she use to see a cyber security analyst, but once again has not followed up due to lack of insurance. Reports PCP is Dr Bragg in [place]. No cp, sob, palpitations, weakness, dizziness, tinnitus. Objective Active Medications: Amitriptyline HCl (Elavil Tab*) 300 mg PO BEDTIME [facility] Last Admin: 01/11/18 21:04 Dose: 300 mg Dextrose (D50w Syringe 50 Ml*) 12.5 gm IV PUSH .FOR FS < 60 - SS PRN PRN Reason: FS < 60 Heparin Sodium (Porcine) (Heparin Vial(*)) 5,000 units SUBCUT Q8HR [facility] Last Admin: 01/12/18 06:29 Dose: 5,000 units Hydromorphone HCl (Dilaudid Inj1s*) 0.5 mg IV SLOW PU Q4H PRN PRN Reason: PAIN Last Admin: 01/11/18 21:05 Dose: 0.5 mg Sodium Chloride (Ns 0.9% 1000 Ml*) 1,000 mls @ 125 mls/hr IV PER RATE [facility] Last Admin: 01/12/18 01:50 Dose: 125 mls/hr Ceftriaxone Sodium 1 gm/ (Sodium Chloride) 50 mls @ 200 mls/hr IVPB Q24H [facility] Last Admin: 01/11/18 23:29 Dose: 200 mls/hr Sodium Chloride (Ns 0.9% 1000 Ml*) 1,000 mls @ 1,000 mls/hr IV .PER RATE ONE Stop: 01/12/18 09:00 Last Admin: 01/12/18 08:30 Dose: 1,000 mls/hr Sodium Chloride (Ns 0.9% 1000 Ml*) 1,000 mls @ 150 mls/hr IV PER RATE [facility] Stop: 01/13/18 15:09 Insulin Human Lispro (Humalog*) 0 units SUBCUT [facility]; Protocol Last Admin: 01/12/18 08:15 Dose: Not Given Metoprolol Tartrate (Lopressor Tab*) 50 mg PO DAILY [facility] Pantoprazole Sodium (Protonix Iv*) 40 mg IV Q24H [facility] Last Admin: 01/11/18 17:04 Dose: 40 mg Vital Signs 01/11/18 01/11/18 01/11/18 18:06 19:17 19:26 Temperature 97.6 F 98.1 F Pulse Rate 107 87 Respiratory 18 24 18 Rate Blood Pressure 111/77 95/60 (mmHg) O2 Sat by Pulse 96 99 Oximetry 01/11/18 01/11/18 01/11/18 20:10 20:25 21:05 Temperature Pulse Rate 90 Respiratory 21 17 Rate Blood Pressure 100/70 (mmHg) O2 Sat by Pulse Oximetry 01/11/18 01/11/18 01/12/18 21:06 23:32 00:29 Temperature 97.4 F Pulse Rate 96 Respiratory 17 15 18 Rate Blood Pressure 81/54 (mmHg) O2 Sat by Pulse 95 Oximetry 01/12/18 01/12/18 01/12/18 01:58 04:28 06:29 Temperature 98.0 F Pulse Rate 83 87 Respiratory 17 21 Rate Blood Pressure 94/42 91/52 (mmHg) O2 Sat by Pulse 98 Oximetry 01/12/18 01/12/18 01/12/18 07:33 07:38 08:00 Temperature 98.0 F Pulse Rate 77 Respiratory 16 16 Rate Blood Pressure 70/45 80/50 (mmHg) O2 Sat by Pulse 96 Oximetry 01/12/18 01/12/18 01/12/18 08:59 09:07 09:43 Temperature Pulse Rate 90 88 Respiratory 18 Rate Blood Pressure 105/67 93/57 (mmHg) O2 Sat by Pulse Oximetry 01/12/18 01/12/18 01/12/18 11:29 12:28 12:37 Temperature 97.7 F Pulse Rate 85 93 Respiratory 16 18 Rate Blood Pressure 84/65 104/76 (mmHg) O2 Sat by Pulse 97 Oximetry 01/12/18 13:38 Temperature Pulse Rate Respiratory 18 Rate Blood Pressure (mmHg) O2 Sat by Pulse Oximetry Oxygen Devices in Use Now: None Appearance: Tearful, NAD Eyes: No Scleral Icterus Ears/Nose/Mouth/Throat: Mucous Membranes Moist Neck: NL Appearance and Movements; NL JVP Respiratory: Symmetrical Chest Expansion and Respiratory Effort, Clear to Auscultation Cardiovascular: NL Sounds; No Murmurs; No JVD, RRR, No Edema Abdominal: - - Abd diffuse tenderness to light touch. Left mid back also tender to light touch. BSX4. No distention. Extremities: No Edema Skin: No Rash or Ulcers Neurological: Alert and Oriented x 3 Nutrition: - - Clears only Result Diagrams: 01/12/18 05:14 01/12/18 05:14 Additional Lab and Data: Laboratory Results - last 24 hr 01/11/18 01/11/18 01/12/18 17:13 18:28 05:14 WBC 5.3 RBC 4.06 Hgb 11.4 L Hct 35 MCV 85 MCH 28 MCHC 33 RDW 15 Plt Count 169 MPV 8.2 Neut % (Auto) 57.5 Lymph % (Auto) 32.2 [place] % (Auto) 6.7 Eos % (Auto) 2.8 Baso % (Auto) 0.8 Absolute Neuts (auto) 3.1 Absolute Lymphs (auto) 1.7 Absolute Monos (auto) 0.4 Absolute Eos (auto) 0.1 Absolute Basos (auto) 0 Absolute Nucleated RBC 0 Nucleated RBC % 0.2 Sodium Potassium Chloride Carbon Dioxide Anion Gap BUN Creatinine Est GFR ( Amer) Est GFR (Non-Af Amer) BUN/Creatinine Ratio Glucose POC Glucose (mg/dL) 129 H Calcium Lipase Urine Color Yellow Urine Appearance Turbid Urine pH 5.0 Ur Specific [place] 1.018 Urine Protein 2+(100 mg/dl) A Urine Ketones Negative Urine Blood 1+ A Urine Nitrate Negative Urine Bilirubin Negative Urine Urobilinogen Negative Ur Leukocyte Esterase 3+ A Urine WBC (Auto) 3+(>20/hpf) A Urine RBC (Auto) 2+(6-10/hpf) A Ur Squamous Epith Cells Present A Urine Bacteria 1+ A Hyaline Casts Present A Urine Glucose Negative 01/12/18 01/12/18 01/12/18 05:14 07:43 12:27 WBC RBC Hgb Hct MCV MCH MCHC RDW Plt Count MPV Neut % (Auto) Lymph % (Auto) [place] % (Auto) Eos % (Auto) Baso % (Auto) Absolute Neuts (auto) Absolute Lymphs (auto) Absolute Monos (auto) Absolute Eos (auto) Absolute Basos (auto) Absolute Nucleated RBC Nucleated RBC % Sodium 139 Potassium 3.9 Chloride 115 H Carbon Dioxide 17 L Anion Gap 7 BUN 22 Creatinine 1.29 H Est GFR ( Amer) 53.1 Est GFR (Non-Af Amer) 43.9 BUN/Creatinine Ratio 17.1 Glucose 155 H POC Glucose (mg/dL) 131 H 93 Calcium 7.8 L Lipase 126 H Urine Color Urine Appearance Urine pH Ur Specific [place] Urine Protein Urine Ketones Urine Blood Urine Nitrate Urine Bilirubin Urine Urobilinogen Ur Leukocyte Esterase Urine WBC (Auto) Urine RBC (Auto) Ur Squamous Epith Cells Urine Bacteria Hyaline Casts Urine Glucose Microbiology and Other Data: Microbiology 01/11/18 18:28 Urine Urine Culture - Preliminary Escherichia Coli Diagnostic Imaging: Comparison: January 11, 2018 CT. Technique: Ultrasound kidneys and urinary bladder. Report: 12.0 x 4.9 x 5.8 cm RIGHT kidney with normal cortical thickness and echogenicity is remarkable for a 0.7 cm maximum dimension mid to inferior pole calyceal stone. No focal RIGHT renal lesions or hydronephrosis. 9.1 x 3.9 x 3.5 cm LEFT kidney is remarkable for severe cortical thinning. 1.1 cm maximum dimension inferior pole calyceal stone. No conspicuous focal renal lesions or hydronephrosis. Prevoid urinary bladder volume estimated at 451 mL. Normal 2.9 mm bladder wall thickness. No focal bladder lesions evident. Bilateral symmetric ureteral jets visualized. Significant post void residual volume estimated at 158 mL. IMPRESSION: #. Bilateral nonobstructing renal calculi. #. Advanced cortical atrophy of the LEFT kidney. #. Negative for hydronephrosis. #. Significant post void residual volume at the urinary bladder. Indication: Right upper quadrant pain. Real-time sonography of the right upper quadrant was performed. The liver is enlarged measuring up to 18.1 cm in length. It is diffusely increased in echogenicity consistent with hepatic steatosis. No focal lesions are noted. The common duct measures up to 0.9 cm which May BE due to postcholecystectomy state of the patient. Patient is status post cholecystectomy. The pancreas head, neck and proximal body demonstrates no mass effect or ductal dilatation. The tail is limited. Aorta and inferior vena cava where visualized is unremarkable. IMPRESSION: Enlarged liver with hepatic steatosis. Patient is status post cholecystectomy. Common duct measures up to 0.9 cm which May BE due to postcholecystectomy state of the patient. Assess/Plan/Problems-Billing Assessment: - Patient Problems (1) Abdominal pain Comment: - Possible pancreatitis - Lipase mildy elevated. - Hx of 3 episodes of pancreatitis. Denies ETOH or drug use. - No radiographic support for pancreatitis. - Will monitor Lipase. - Remain on clear diet and consider advancing after GI consult - GI has been contacted and will see her tomorrow. We appreciate their input. - Other differencial diagnoses include mesenteric ischemia as patient reports blood in stool previously, pain and low BP. Lactic normal. Will repeat. - Stool order for blood - Requesting 2 mg IV dilaudid as 0.5 mg is not helping. Patient hypotensive with pain meds and has kidney disease. Dr Herr will see patient and we appreciate his input. (2) Acute renal failure Comment: - Creatinine 1.29 down from 1.87 yesterday. - Known kidney disease with recurrent kidney stones and atrophic left kidney (3) Cough Comment: - No cough noted on exam and LS clear. (4) HTN (hypertension) Comment: - Lisinopril held - Cont metoprolol. Might need lower dose if hypotension continues. - Patient is occasionally hypotensive and requiring fluid bolus. I suspect this is due to the pain medicaion. Will continue to monitor (5) Type II diabetes mellitus Comment: - Hold metformin. - Cont sliding scale - Noncompliant with Lantus, therefore, not reordered at this point. (6) Full code status Comment: - Full code (7) DVT prophylaxis Comment: - Heparin Attending: Nohemy Salomon
[2018-01-12] MEDS: Metoprolol Tartrate TAB* 50 mg PO SCH (09:07)
[2018-01-12] MEDS: HYDROmorphone INJ1* 1 MG/ML SYRINGE IV SLOW PU PRN ×2 (09:07→13:38)
[2018-01-12] MEDS ORDERED: HYDROmorphone INJ1* 1 MG/ML SYRINGE IV SLOW PU ONE (17:45)
--- NOTE | 2018-01-12 17:48 | CONSULT ---
Consult Consult: INPATIENT PAIN CONSULTATION Edna Weber is a 47 year old female with a medical history significant for diabetes and hypertension. She developed pancreatitis 3 years ago and had several subsequent episodes of pancreatitis. She also has had episodes of nephrolithiasis. She reported to the ER at [facility] on January 11 reporting a 3 day history of vomiting and abdominal pain. She tells me it begins under her left breast and radiates around her back. She has had difficulty voiding as well. In the ER she had a mildly elevated lipase and was admitted. She has had abdominal sono with a slightly large CBD that may be due to her cholecystectomy in the past. Her pancreas was not enlarged. She also had a CT of of abd/pevis showing an atrophic left kidney and fatty liver. U/S of her kidneys and bladder showed non obstructing stones and a PVR of 151 ml, atrophic left kidney. She had a dirty urine and an elevated CRP. I am asked to see her for pain management. She was given 0.5 mg IV dilaudid but her pressure dropped. PAST MEDICAL HISTORY: DM, HTN, CKD ALLERGIES: Paxil, Ditropan Current Medications Amitriptyline HCl (Elavil Tab*) 300 mg PO BEDTIME [facility] Last Admin: 01/11/18 21:04 Dose: 300 mg Dextrose (D50w Syringe 50 Ml*) 12.5 gm IV PUSH .FOR FS < 60 - SS PRN PRN Reason: FS < 60 Fentanyl (Duragesic Patch 25 Mcg/Hr*) 25 mcg TRANSDERM Q72H [facility] Heparin Sodium (Porcine) (Heparin Vial(*)) 5,000 units SUBCUT Q8HR [facility] Last Admin: 01/12/18 13:39 Dose: 5,000 units Hydromorphone HCl (Dilaudid Inj1s*) 0.5 mg IV SLOW PU Q4H PRN PRN Reason: PAIN Last Admin: 01/12/18 13:38 Dose: 0.5 mg Sodium Chloride (Ns 0.9% 1000 Ml*) 1,000 mls @ 125 mls/hr IV PER RATE [facility] Last Admin: 01/12/18 01:50 Dose: 125 mls/hr Ceftriaxone Sodium 1 gm/ (Sodium Chloride) 50 mls @ 200 mls/hr IVPB Q24H [facility] Last Admin: 01/11/18 23:29 Dose: 200 mls/hr Sodium Chloride (Ns 0.9% 1000 Ml*) 1,000 mls @ 150 mls/hr IV PER RATE [facility] Stop: 01/13/18 15:09 Last Admin: 01/12/18 10:00 Dose: 150 mls/hr Insulin Human Lispro (Humalog*) 0 units SUBCUT AC [facility]; Protocol Last Admin: 01/12/18 13:28 Dose: Not Given Metoprolol Tartrate (Lopressor Tab*) 50 mg PO DAILY [facility] Last Admin: 01/12/18 09:07 Dose: Not Given Pantoprazole Sodium (Protonix Iv*) 40 mg IV Q24H [facility] Last Admin: 01/11/18 17:04 Dose: 40 mg Pharmacy Profile Note (Fentanyl Patch Check Q Shift) 1 note N/A 0700,1900 [facility] SOCIAL HISTORY: 1 ppd smoker, non drinker, lives with her . Unemployed, watches her grandson Laboratory Results - last 24 hr 01/11/18 01/12/18 01/12/18 18:28 05:14 05:14 WBC 5.3 RBC 4.06 Hgb 11.4 L Hct 35 MCV 85 MCH 28 MCHC 33 RDW 15 Plt Count 169 MPV 8.2 Neut % (Auto) 57.5 Lymph % (Auto) 32.2 [place] % (Auto) 6.7 Eos % (Auto) 2.8 Baso % (Auto) 0.8 Absolute Neuts (auto) 3.1 Absolute Lymphs (auto) 1.7 Absolute Monos (auto) 0.4 Absolute Eos (auto) 0.1 Absolute Basos (auto) 0 Absolute Nucleated RBC 0 Nucleated RBC % 0.2 Sodium 139 Potassium 3.9 Chloride 115 H Carbon Dioxide 17 L Anion Gap 7 BUN 22 Creatinine 1.29 H Est GFR ( Amer) 53.1 Est GFR (Non-Af Amer) 43.9 BUN/Creatinine Ratio 17.1 Glucose 155 H POC Glucose (mg/dL) Calcium 7.8 L Lipase 126 H Urine Color Yellow Urine Appearance Turbid Urine pH 5.0 Ur Specific [place] 1.018 Urine Protein 2+(100 mg/dl) A Urine Ketones Negative Urine Blood 1+ A Urine Nitrate Negative Urine Bilirubin Negative Urine Urobilinogen Negative Ur Leukocyte Esterase 3+ A Urine WBC (Auto) 3+(>20/hpf) A Urine RBC (Auto) 2+(6-10/hpf) A Ur Squamous Epith Cells Present A Urine Bacteria 1+ A Hyaline Casts Present A Urine Glucose Negative 01/12/18 01/12/18 01/12/18 07:43 12:27 17:13 WBC RBC Hgb Hct MCV MCH MCHC RDW Plt Count MPV Neut % (Auto) Lymph % (Auto) [place] % (Auto) Eos % (Auto) Baso % (Auto) Absolute Neuts (auto) Absolute Lymphs (auto) Absolute Monos (auto) Absolute Eos (auto) Absolute Basos (auto) Absolute Nucleated RBC Nucleated RBC % Sodium Potassium Chloride Carbon Dioxide Anion Gap BUN Creatinine Est GFR ( Amer) Est GFR (Non-Af Amer) BUN/Creatinine Ratio Glucose POC Glucose (mg/dL) 131 H 93 98 Calcium Lipase Urine Color Urine Appearance Urine pH Ur Specific [place] Urine Protein Urine Ketones Urine Blood Urine Nitrate Urine Bilirubin Urine Urobilinogen Ur Leukocyte Esterase Urine WBC (Auto) Urine RBC (Auto) Ur Squamous Epith Cells Urine Bacteria Hyaline Casts Urine Glucose Vital Signs Temp Pulse Resp BP Pulse Ox 98.4 F 88 16 103/65 100 01/12/18 15:59 01/12/18 15:59 01/12/18 15:59 01/12/18 15:59 01/12/18 15:59 EXAM: GENERAL: Mild distress LUNGS: Clear HEART: Reg rhythm ABDOMEN: tender over lower half of abdomen. +BS EXTREMITIES: Normal tone NEUROLOGIC: Normal strength in upper and lower extremities ASSESSMENT: 1. Abdominal Pain 2. Urinary Tract Infection PLAN: I gave her one more IV dose of Dilaudid, and will see if her pressure holds. I think she may do well with a Fentanyl patch and elimination of IV dilaudid for more sustained pain relief. Will follow her BP. I am not completely sure of the cause of her pain-it does not seem to be chronic pancreatitis and am not sure it is the stones.
[2018-01-12] MEDS ORDERED: fentaNYL PATCH 25 MCG/HR TRANSDERM SCH (18:00)
[2018-01-12] MEDS: Pantoprazole IV* 40 MG IV SCH (18:11)
[2018-01-12] MEDS: fentaNYL Patch Check Q Shift 1 NOTE SCH (18:58)
[2018-01-12] MEDS: Amitriptyline TAB* 100 MG PO SCH (22:32)
[2018-01-12] MEDS: cefTRIAXone(*) 1 GM in NS 0.9% 50 ML* 50 ML IVPB SCH (22:50)
[2018-01-13 05:18] LABS: ABS Basophils 0.1 10^3/ul (0-0.2); ABS Eosinophils 0.2 10^3/ul (0-0.6); ABS Lymphocytes 1.8 10^3/ul (1.0-4.8); ABS Monocytes 0.3 10^3/ul (0-0.8); ABS Neutrophils 2.1 10^3/ul (1.5-7.7); ABS Nucleated RBC 0 10^3/ul; Eosinophil % 4.2 %; Hematocrit 32 % (35-47); Hemoglobin 10.5 g/dl (12.0-16.0); Lymphocyte % 40.5 %; Mean Corpuscular HGB Conc 33 g/dl (31-36); Mean Corpuscular Hemoglobin 28 pg (27-31); Mean Corpuscular Volume 86 fL (80-97); Nucleated Red Blood Cells % 0; Platelet Count 153 10^3/ul (150-450); Red Cell Distribution Width 14 % (10.5-15); White Blood Count 4.4 10^3/ul (3.5-10.8)
[2018-01-13] MEDS: HYDROmorphone INJ1* 1 MG/ML SYRINGE IV SLOW PU PRN ×3 (05:20→20:31)
[2018-01-13] MEDS: NS 0.9% 1000 ML* 1,000 ML IV SCH (05:26)
[2018-01-13 05:40] LABS: EGFR Non-African American 51.2 (>60)
[2018-01-13] MEDS: Heparin VIAL(*) 5000 UNITS/ML VIAL (FIVE THOUSAND) SUBCUT SCH ×3 (06:04→22:32)
--- NOTE | 2018-01-13 06:19 | PN ---
Progress Note - Progress Note Date of Service: 01/13/18 Note: Patient voiding but still with PVR approx 400. Recommend touch base with Urology. May need indwelling carmona placement.
[2018-01-13] MEDS: fentaNYL Patch Check Q Shift 1 NOTE SCH ×2 (06:53→18:58)
[2018-01-13] MEDS: Insulin LISPRO* 1 UNITS UNIT SUBCUT SCH ×3 (07:33→16:51)
--- NOTE | 2018-01-13 08:46 | PN ---
Subjective Date of Service: 01/13/18 Interval History: Received report from Dr Cheng that patient has been retaining urine during security shift supervisor. See progress note. It was noted yesterday that patient might be retaining urine as she was only voiding small amounts. Order was placed for post void residual. It should be noted that patient reports she has similar issue with urinary retention when hospitalized elsewhere. Patient sitting in bed on assessment. Seen by Dr Herr yesterday for pain management and was placed on Fent patch in addition to IV Dialudid 0.5 mg prn. Patient reports the patch was initially helping left mid back and upper abd pain until this morning. Reports she needs 2 mg IV dialuadid as this is the only thing that helps. Reports she was hesitant to mention due to recent social concern for pain medication and drug users. Reports pain in left mid back and upper abd pain as mentioned above. Reports not having "urge" to urinate for several months. Reports not having urge to have a BM today. Denies chest pain, nausea, vomiting, diarrhea, sob, palpitations, numbness/ tingling. Objective Active Medications: Amitriptyline HCl (Elavil Tab*) 300 mg PO BEDTIME [facility] Last Admin: 01/12/18 22:32 Dose: 300 mg Dextrose (D50w Syringe 50 Ml*) 12.5 gm IV PUSH .FOR FS < 60 - SS PRN PRN Reason: FS < 60 Fentanyl (Duragesic Patch 25 Mcg/Hr*) 25 mcg TRANSDERM Q72H [facility] Last Admin: 01/12/18 18:20 Dose: 25 mcg Heparin Sodium (Porcine) (Heparin Vial(*)) 5,000 units SUBCUT Q8HR [facility] Last Admin: 01/13/18 06:04 Dose: 5,000 units Hydromorphone HCl (Dilaudid Inj1s*) 0.5 mg IV SLOW PU Q8H PRN PRN Reason: PAIN Last Admin: 01/13/18 05:20 Dose: 0.5 mg Sodium Chloride (Ns 0.9% 1000 Ml*) 1,000 mls @ 125 mls/hr IV PER RATE [facility] Last Admin: 01/13/18 05:26 Dose: 125 mls/hr Ceftriaxone Sodium 1 gm/ (Sodium Chloride) 50 mls @ 200 mls/hr IVPB Q24H [facility] Last Admin: 01/12/18 22:50 Dose: 200 mls/hr Insulin Human Lispro (Humalog*) 0 units SUBCUT [facility]; Protocol Last Admin: 01/13/18 07:33 Dose: Not Given Metoprolol Tartrate (Lopressor Tab*) 50 mg PO DAILY [facility] Last Admin: 01/12/18 09:07 Dose: Not Given Pantoprazole Sodium (Protonix Iv*) 40 mg IV Q24H [facility] Last Admin: 01/12/18 18:11 Dose: 40 mg Pharmacy Profile Note (Fentanyl Patch Check Q Shift) 1 note N/A [id number],[id number] [facility] Last Admin: 01/13/18 06:53 Dose: 1 note Vital Signs - 8 hr 01/13/18 01/13/18 01/13/18 03:08 05:20 06:53 Temperature 98.4 F Pulse Rate 97 Respiratory 18 16 18 Rate Blood Pressure 113/83 (mmHg) O2 Sat by Pulse 97 Oximetry 01/13/18 07:11 Temperature 98.2 F Pulse Rate 100 Respiratory 16 Rate Blood Pressure 144/85 (mmHg) O2 Sat by Pulse 100 Oximetry Oxygen Devices in Use Now: None Appearance: Comfortable, cooperative, NAD. Eyes: PERRLA Ears/Nose/Mouth/Throat: Clear Oropharnyx, Mucous Membranes Moist Neck: NL Appearance and Movements; NL JVP Respiratory: Symmetrical Chest Expansion and Respiratory Effort, - - Scant rhonchi heard in lower and mid lobes on right that clears with cough Cardiovascular: NL Sounds; No Murmurs; No JVD, RRR, No Edema Abdominal: - - BS x4. Soft. Tender in left upper quad to light palptation. Tenderness to left mid back to finger tip touch. Lymphatic: No Cervical Adenopathy Extremities: No Edema Skin: No Rash or Ulcers Neurological: Alert and Oriented x 3 Nutrition: Taking PO's Result Diagrams: 01/13/18 05:11 01/13/18 05:11 Additional Lab and Data: Laboratory Results - last 24 hr 01/12/18 01/12/18 01/13/18 12:27 17:13 05:11 WBC 4.4 RBC 3.70 L Hgb 10.5 L Hct 32 L MCV 86 MCH 28 MCHC 33 RDW 14 Plt Count 153 MPV 8.0 Neut % (Auto) 47.4 Lymph % (Auto) 40.5 [place] % (Auto) 6.8 Eos % (Auto) 4.2 Baso % (Auto) 1.1 Absolute Neuts (auto) 2.1 Absolute Lymphs (auto) 1.8 Absolute Monos (auto) 0.3 Absolute Eos (auto) 0.2 Absolute Basos (auto) 0.1 Absolute Nucleated RBC 0 Nucleated RBC % 0 Sodium Potassium Chloride Carbon Dioxide Anion Gap BUN Creatinine Est GFR ( Amer) Est GFR (Non-Af Amer) BUN/Creatinine Ratio Glucose POC Glucose (mg/dL) 93 98 Lactic Acid Calcium Total Bilirubin AST ALT Alkaline Phosphatase Total Protein Albumin Globulin Albumin/Globulin Ratio Triglycerides Cholesterol LDL Cholesterol LDL Cholesterol Direct HDL Cholesterol Lipase TSH 01/13/18 01/13/18 05:11 05:11 WBC RBC Hgb Hct MCV MCH MCHC RDW Plt Count MPV Neut % (Auto) Lymph % (Auto) [place] % (Auto) Eos % (Auto) Baso % (Auto) Absolute Neuts (auto) Absolute Lymphs (auto) Absolute Monos (auto) Absolute Eos (auto) Absolute Basos (auto) Absolute Nucleated RBC Nucleated RBC % Sodium 138 Potassium 4.1 Chloride 120 H Carbon Dioxide 15 L Anion Gap 3 BUN 12 Creatinine 1.13 H Est GFR ( Amer) 61.9 Est GFR (Non-Af Amer) 51.2 BUN/Creatinine Ratio 10.6 Glucose 109 H POC Glucose (mg/dL) Lactic Acid 0.5 Calcium 7.5 L Total Bilirubin 0.20 AST 11 L ALT 10 Alkaline Phosphatase 75 Total Protein 5.0 L Albumin 2.7 L Globulin 2.3 Albumin/Globulin Ratio 1.2 Triglycerides 422 Cholesterol 211 LDL Cholesterol LDL Cholesterol Direct 124 HDL Cholesterol 24.9 Lipase 37 TSH 5.34 Microbiology and Other Data: . Microbiology 01/11/18 18:28 Urine Urine Culture - Final Escherichia Coli Normal Diagnostic Imaging: Comparison: January 11, 2018 CT. Technique: Ultrasound kidneys and urinary bladder. Report: 12.0 x 4.9 x 5.8 cm RIGHT kidney with normal cortical thickness and echogenicity is remarkable for a 0.7 cm maximum dimension mid to inferior pole calyceal stone. No focal RIGHT renal lesions or hydronephrosis. 9.1 x 3.9 x 3.5 cm LEFT kidney is remarkable for severe cortical thinning. 1.1 cm maximum dimension inferior pole calyceal stone. No conspicuous focal renal lesions or hydronephrosis. Prevoid urinary bladder volume estimated at 451 mL. Normal 2.9 mm bladder wall thickness. No focal bladder lesions evident. Bilateral symmetric ureteral jets visualized. Significant post void residual volume estimated at 158 mL. IMPRESSION: #. Bilateral nonobstructing renal calculi. #. Advanced cortical atrophy of the LEFT kidney. #. Negative for hydronephrosis. #. Significant post void residual volume at the urinary bladder. Indication: Right upper quadrant pain. Real-time sonography of the right upper quadrant was performed. The liver is enlarged measuring up to 18.1 cm in length. It is diffusely increased in echogenicity consistent with hepatic steatosis. No focal lesions are noted. The common duct measures up to 0.9 cm which May BE due to postcholecystectomy state of the patient. Patient is status post cholecystectomy. The pancreas head, neck and proximal body demonstrates no mass effect or ductal dilatation. The tail is limited. Aorta and inferior vena cava where visualized is unremarkable. IMPRESSION: Enlarged liver with hepatic steatosis. Patient is status post cholecystectomy. Common duct measures up to 0.9 cm which May BE due to postcholecystectomy state of the patient. EKG Data: . Assess/Plan/Problems-Billing Assessment: 47 yr old female with a pmh of DM2 that is uncontrolled, HTN, nephrolithiasis, depression, anxiety, chronic kidney failure, pancreatitis x3; who presented to the ED with abd pain and was admitted for possible pancreatitis. - Patient Problems (1) Abdominal pain Comment: - Suspected pancreatitis - Lipase mildy elevated and admission, but now 37 - Hx of 3 episodes of pancreatitis. Denies ETOH or drug use. - Triglycerides 422 - GI consulted and we appreciate their input. - Patient will be NPO after midnight tonight for possible EGD tomorrow - Stool order for blood - It should be noted that patient also has hx of diverticulitis x2 and 6 yrs of difficulty swallowing - Today patient reports pain increases with eating. She is on a clear liquid diet currently (2) Acute renal failure Comment: - Creatinine 1.13 down from 1.87 on admission. - Known kidney disease with recurrent kidney stones and atrophic left kidney - Requesting records for etiology of atrophic kidney (3) Cough Comment: - No cough noted on exam - Scant rhonchi in lower and mid right - Deep breathing and incentive spirometer encouraged (4) HTN (hypertension) Comment: - Lisinopril held. May restart if SBP remains above 120 - Cont metoprolol. Might need lower dose if hypotension returns. - Patient is occasionally hypotensive yesterday and requiring fluid bolus. (5) Type II diabetes mellitus Comment: - Hold metformin. - Hemaglobin A1c ordered. - Cont sliding scale - BG 93 to 131. Likely lower BG due to patient being NPO yesterday and only clear liquid diet. - Continue to monitor and adjust insulin as needed - Noncompliant with Lantus, therefore, not reordered at this point. - Consider consult with Dr Vasquez (6) Full code status Comment: - Full code (7) DVT prophylaxis Comment: - Heparin (8) Urinary retention Comment: - Retaining urine. - Noted to be retaining yesterday and overnight. - Order placed for Q4 hr bladder scan with straight cath if urine greater than 200 mls - Differential diagnoses for retention are uncontrolled diabetes, neurological conditions, or narcotics. - I have requested neurology consults and Dr Arteaga will be seeing her today. I appreciate her input (9) Hypotension Comment: - Asymptomatic hypotension yesterday. - Possibly exacerbated by pain medications and inactivity - Patient has hx of htn and on medications at baseline - Ordered manual BPs to be taken in bilateral arms for further evaluation and nurse reports results were the same on bilateral upper arms (10) Pain management Comment: - Dr Herr consulting for pain management. We appreciate his input. - Patient requesting Dilaudid 2 mg as Fent patch and 0.5 mg Dilaudid not controlling pain - Discussed with Dr Herr who recommended one time dose of dilaudid 1 mg IV and he will see her again this afternoon - Possibly transition to PO pain medication Status and Disposition: Inpatient. Discharge home when medically stable. Awaiting records from Dr Bragg in [facility] with Cecile Gray who is patient's PCP Attending: Nohemy Salomon
[2018-01-13] MEDS: Metoprolol Tartrate TAB* 50 mg PO SCH (08:56)
[2018-01-13] MEDS: Magnesium Hydroxide LIQ* 30 ML UDC PO SCH ×2 (11:53→20:30)
[2018-01-13] MEDS ORDERED: HYDROmorphone INJ1* 1 MG/ML SYRINGE IV SLOW PU ONE (12:00)
[2018-01-13] MEDS: Pantoprazole IV* 40 MG IV SCH (15:09)
--- NOTE | 2018-01-13 19:02 | PN ---
Progress Note - Progress Note Date of Service: 01/13/18 Note: INPATIENT PAIN-PROGRESS She tells me the patch is doing nothing although she initially thought it was helpful. She has just started on clear liquids and will be having a test tomorrow with GI and is NPO after MN. She still complains of significant pain. Current Medications Amitriptyline HCl (Elavil Tab*) 300 mg PO BEDTIME [facility] Last Admin: 01/12/18 22:32 Dose: 300 mg Dextrose (D50w Syringe 50 Ml*) 12.5 gm IV PUSH .FOR FS < 60 - SS PRN PRN Reason: FS < 60 Heparin Sodium (Porcine) (Heparin Vial(*)) 5,000 units SUBCUT Q8HR [facility] Last Admin: 01/13/18 13:39 Dose: 5,000 units Hydromorphone HCl (Dilaudid Inj1s*) 1 mg IV SLOW PU Q4H PRN PRN Reason: PAIN - MODERATE TO SEVERE Ceftriaxone Sodium 1 gm/ (Sodium Chloride) 50 mls @ 200 mls/hr IVPB Q24H [facility] Last Admin: 01/12/18 22:50 Dose: 200 mls/hr Insulin Human Lispro (Humalog*) 0 units SUBCUT AC [facility]; Protocol Last Admin: 01/13/18 16:51 Dose: Not Given Magnesium Hydroxide (Milk Of Magnesia Liq*) 30 ml PO BID [facility] Last Admin: 01/13/18 11:53 Dose: 30 ml Metoprolol Tartrate (Lopressor Tab*) 50 mg PO DAILY [facility] Last Admin: 01/13/18 08:56 Dose: 50 mg Pantoprazole Sodium (Protonix Iv*) 40 mg IV Q24H [facility] Last Admin: 01/13/18 15:09 Dose: 40 mg VITAL SIGNS: Temp Pulse Resp BP Pulse Ox 98.5 F 75 18 118/78 99 01/13/18 15:56 01/13/18 15:56 01/13/18 16:29 01/13/18 15:56 01/13/18 15:56 EXAM: LUNGS: Clear HEART: Reg rhythm ABDOMEN: Soft, tender in lower quadrants NEUROLOGIC: ALert and oriented. Moves all 4 extremities without difficulty ASSESSMENT: 1. Abdominal Pain of unclear etiology 2. Urinary retention PLAN: Will d/c Fentanyl as she insists it is doing nothing. Will order DIlaudid 1 mg IV Q 4 PRN for tonight. When she can take PO, hopefully can change to a pill
--- NOTE | 2018-01-13 20:13 | CONS ---
CONSULTATION REPORT: DATE OF CONSULT: 01/13/18 REASON FOR CONSULT: Pain. HISTORY OF PRESENT ILLNESS: Edna Weber is a 47-year-old woman with a history of diabetes, hypertension, chronic renal failure, pancreatitis x3, diverticulitis x2, frequent gastritis, frequent peptic ulcers, nephrolithiasis with previous sepsis who has at baseline chronic difficulty swallowing and abdominal pain above the umbilicus who now comes in with a new left abdominal pain. She indicates that at baseline she has needed to have an endoscopy and colonoscopy for long time, but has not had medical insurance. She has had chronic abdominal issues as noted above, and is very concerned that there may be underlying pathology going on. She in the last couple of weeks became sick with a cough for 2 weeks and brown sputum, chills for 10 days, nausea and vomiting, bowel movement with blood and pus, some burning with urination, and decreased appetite in the last day. She has been found to have a urinary tract infection with E. coli since being admitted. Her lipase was initially elevated at 220, has come down to 37. She went on to have ultrasound of the bladder, which showed bilateral nonobstructive calculi. Dr. Herr saw her in pain management. She had a CT of the abdomen and pelvis, which showed the atrophic left kidney, calculi in the left renal collecting system measuring up to 6 mm with no obstruction, and hepatic steatosis, with no change since June 2017. Please see report for details. On today's visit, I was asked to see the patient in case there could be any radicular component to her symptoms. She indicates that the pain has been constant for the last 3 days in the left lower back radiating around to the left abdomen. Things that make it worse include eating. Today, she could take some fluids in for the first time without pain. She does have chronic stomach problems and indicates that there is a mid abdominal pain above the umbilicus that is sharp and intense and it hurts more when she pushes in that area. She came in to hospital thinking that she had a kidney stone when the left-sided pain started. She added the lack of endoscopy and colonoscopy for 10 years. She has had gastritis in the last 2 months. She is currently working with social work here in the hospital to get medical insurance. She denies any focal numbness. Her pain feels deep and not superficial. There has been no rash. Overall, she has felt weaker. She uses her arms to push herself up for a while. Her arms seemed to be a little bit weaker than they had in the past. There has been no incontinence of bowel or bladder. There has been no sensory level in her chest or abdomen. PAST MEDICAL HISTORY: Includes diabetes, hypertension, nephrolithiasis with sepsis, pancreatitis x3, diverticulitis x2, difficulty swallowing for 6 years, frequent peptic ulcers, chronic renal failure, depression and anxiety, history of cutting as a teen, appendectomy and history of hysterectomy with bilateral salpingo- oophorectomy. CURRENT MEDICATIONS: Include: 1. Amitriptyline 300 mg p.o. q.h.s. 2. Ceftriaxone 1 g IV q.24 hours. 3. Dextrose 12.5 g IV as needed for fingersticks less than 60. 4. Fentanyl 25 mcg every 72 hours. 5. Heparin sodium 5000 international units p.o. q.8 hours. 6. Hydromorphone 0.5 mg IV q.8 hours p.r.n. pain. 7. Humalog as directed. 8. Milk of magnesia 30 mL p.o. b.i.d. 9. Metoprolol 50 mg p.o. daily. 10. Protonix 40 mg IV q.24 hours. 11. Fentanyl patch checks every shift. ALLERGIES: She has allergies to OXYBUTYNIN, which causes night terrors, PAROXETINE causes seizures, and PNEUMOCOCCAL VACCINE resulted in a rash. SOCIAL HISTORY: She smokes a pack a day and has done so for approximately 20 years. She does not drink alcohol. She denies use of marijuana, controlled substances, illicit street drugs. She has been taking care of her grand baby for 5 years. It has been years since she has worked. FAMILY HISTORY: Includes mother who is 82 with hypertension and stroke and diabetes. Father who of diabetic shock when she was young. Sister with breast cancer. Of note, there is a history of thyroid disease in her mother and 4 aunts, and a maternal aunt who had a history of breast cancer. REVIEW OF SYSTEMS: On review of systems, there has been no change in her vision since she was diagnosed with diabetes. She denies loss of vision in 1 eye or another. There has been a chronic decrease in hearing on the right-hand side. She has had chronic difficulty swallowing. She denies any change in cognition or mood. There has been no new numbness or focal weakness in arms or legs. She denies any incontinence of bowel or bladder. She denies any drenching night sweats or high fevers for an unknown reason. She has lost 10 to 12 pounds with some effort. There has been no rash or joint pain. Psychiatric history does include cutting as a teen and admission to [facility] at that time. She has been stable in recent years. PHYSICAL EXAM: On examination, most recent temperature was 98.6 degrees Fahrenheit, pulse was 77, respiratory rate was 16, saturation was 100%, blood pressure was 101/51. She had a regular cardiac rhythm. Her lungs were clear to auscultation. There was no peripheral edema. She had good peripheral pulses in her dorsalis pedis and posterior tibialis. No rashes were noted. Truncal obesity was noted. She did have decreased bowel sounds throughout. There was tenderness diffusely in the entire left upper and lower quadrant to palpation. There is also tenderness in the left lower back to palpation that was diffuse and not focal to one dermatomal distribution. She had pupils that were equal and responsive to light. Her fundi were flat. She had full extraocular movements with no nystagmus, full garcía to confrontation. Her facial expression, sensation were symmetric. Hearing was decreased to finger rub on the right. Palate was upgoing. Tongue was midline. Sternocleidomastoid and trapezius were 5/5 in strength. There was normal bulk and tone. No pronator drift. Full strength in the upper and lower extremities. She had slight give at first to left hip flexion with pain. This was repeated with strength, and she had good strength in bilateral hip abduction and adduction. There was no sensory level noted or dermatomal change on the thorax to sharp, cold or light touch. She denied any asymmetries or length dependent changes to sharp, cold or light touch. Her vibration sensation was decreased by 5 to 10 seconds at the large toes. Proprioception was intact at the large toes. She had normal [id number] and [id number] movements. Her reflexes were 2+ and symmetric in the upper and lower extremities. Her toes were flexor response. Her Romberg was negative. She could get on to her heels and her toes when holding onto the examiner. She was able to take 3 steps forward and back steadily without any difficulty. DATA; Hospitalist's admission note and progress note were reviewed. Abdominal bladder ultrasound was reviewed. Abdominal pelvis CT was reviewed and pertinent findings noted above. Please see reports for details. Also reviewed was Dr. Herr's pain consultation. Labs were reviewed. IMPRESSION: A 47-year-old woman with a history of pancreatitis, diverticulitis x2, gastritis x2, peptic ulcers, nephro-lithiasis and chronic difficulty with swallowing, and chronic abdominal pain above the umbilicus, who now comes in with diffuse left lower back pain and left upper and lower quadrant abdominal pain, which appears to be connected that is made worse by swallowing. The part that has made worse by eating raises question on whether there may be pathology in the bowels where she has peristalsis, it causes pain. I cannot find any focal neurologic symptoms to suggest a single nerve root or nerve root irritation in a dermatomal distribution. There is no evidence of cord compression. There are no radicular symptoms or findings in a particular nerve root distribution in the legs. Given her diffuse findings, with pain in the left upper and lower quadrant of the abdomen that can be recreated with palpation and made worse by eating, the extensive GI symptoms without recent workup, I agree with a GI evaluation. Case was discussed with Linda Fuentes NP as per the hospitalist team. Lastly of note, she is on significant doses of amitriptyline, which can contribute to constipation and this dosing should be reassessed. Over an hour was spent in patient care. Please call if further neurologic input is needed. [id number]/[facility] #: [id number] [facility]
[2018-01-13] MEDS: Amitriptyline TAB* 100 MG PO SCH (20:30)
[2018-01-13] MEDS: cefTRIAXone(*) 1 GM in NS 0.9% 50 ML* 50 ML IVPB SCH (22:29)
[2018-01-14] MEDS: HYDROmorphone INJ1* 1 MG/ML SYRINGE IV SLOW PU PRN ×5 (02:46→21:22)
[2018-01-14] MEDS: NS 0.9% 1000 ML* 1,000 ML IV SCH ×2 (02:52→17:20)
[2018-01-14 05:28] LABS: ABS Basophils 0 10^3/ul (0-0.2); ABS Eosinophils 0.2 10^3/ul (0-0.6); ABS Lymphocytes 1.8 10^3/ul (1.0-4.8); ABS Monocytes 0.4 10^3/ul (0-0.8); ABS Neutrophils 2.5 10^3/ul (1.5-7.7); ABS Nucleated RBC 0 10^3/ul; Eosinophil % 3.6 %; Hematocrit 31 % (35-47); Hemoglobin 10.3 g/dl (12.0-16.0); Lymphocyte % 36.6 %; Mean Corpuscular HGB Conc 33 g/dl (31-36); Mean Corpuscular Hemoglobin 28 pg (27-31); Mean Corpuscular Volume 85 fL (80-97); Nucleated Red Blood Cells % 0; Platelet Count 158 10^3/ul (150-450); Red Blood Count 3.66 10^6/ul (4.00-5.40); Red Cell Distribution Width 15 % (10.5-15)
[2018-01-14 05:43] LABS: EGFR Non-African American 51.2 (>60)
[2018-01-14] MEDS: Heparin VIAL(*) 5000 UNITS/ML VIAL (FIVE THOUSAND) SUBCUT SCH ×3 (06:12→21:26)
[2018-01-14] MEDS: Insulin LISPRO* 1 UNITS UNIT SUBCUT SCH ×3 (08:05→16:16)
--- NOTE | 2018-01-14 08:53 | CONS ---
GASTROENTEROLOGY CONSULT NOTE: DATE OF CONSULT: 01/13/18 REQUESTING PROVIDER: Bonnie Horton NP REASON FOR CONSULT: Concern for pancreatitis. HISTORY OF PRESENT ILLNESS: Ms. Weber is a 47-year-old woman with a history of diabetes, hypertension, depression and anxiety, chronic renal failure, remote peptic ulcer disease, and recurrent pancreatitis who is admitted with acute abdominal pain and nausea/vomiting concerning for recurrent pancreatitis. Ms. Weber provides history today. Ms. Weber reports that she started having abdominal pain around 3 days ago. Pain was located in the left upper quadrant and radiated to her back. Pain is constant and worse with eating. Associated with nausea and vomiting. Pain similar to prior episodes of pancreatitis. She also describes multiple chronic GI symptoms. She reports chronic abnormal bowel movements with fluctuation between diarrhea and constipation. She occasionally strains to have bowel movements with rare blood in the stool. She also describes episodes of diarrhea 1 to 2 times a week. When she has days of diarrhea, she has diarrhea "all day long." She mentions that she had an episode of constipation last week and then passed the stool that had "pus and blood and chunks of fat" in it. She also complains of chronic progressive dysphagia to solid foods dating back 6 years. She says most solids get stuck in her upper esophagus. She often will have to swallow hard to get them down and sometimes regurgitate the food. She did have a scary episode recently where she felt rice got stuck temporarily. She complains of reflux symptoms at least 3 times a week and describes waking up at night with severe reflux to the point that will cause her to vomit. She is only on Pepcid [id number]. She has lost her insurance and cannot afford a proton pump inhibitor. Lastly, she complains of chronic abdominal pain occurring 2 to 3 times a week. Located in the epigastrium predominantly. She says that the pain is worse when she drinks things like soda. She recalls having an upper endoscopy and colonoscopy 20 to 30 years ago and was told that she had peptic ulcer disease. She uses ibuprofen several times a week for the chronic abdominal pain and kidney issues. She reports weight down 10 pounds in last few weeks to months which is unintentional. She denies any significant alcohol use. In regard to chronic pancreatitis, Ms. Weber says that she was diagnosed with pancreatitis around 2 years ago and has had 3 episodes of pancreatitis in the last 2 years. The last episode was around 6 months ago. She is not sure if there has ever been a cause for the pancreatitis that has been identified. She gets upset by people questioning if she uses alcohol as she does not drink any alcohol at all. She thinks that she had an MRI of her pancreas 6 to 8 months ago at [facility], and she does not have any interest in having a repeat of that done without significant sedation. She had a gallbladder surgery in 1984. She denies any new medications within past 2 years associated with the pancreatitis. She is on lisinopril, although she says that this was started after the episodes of pancreatitis began. On admission, Ms. Weber was noted to have an elevated lipase of 220. She had triglycerides of 422 and calcium of 7.5. Liver enzymes were normal. She had an ultrasound of abdomen that showed hepatic steatosis and a 0.9 cm CBD. Pancreas was normal in appearance. She had a CT abdomen and pelvis as well which also demonstrates hepatic steatosis. Pancreas appeared normal without mass or PD dilation. The patient has been given IV fluids and has been on clears. GI consulted. Pain is a bit better today compared to admission, although she is still quite uncomfortable. PAST MEDICAL HISTORY: Diabetes, hypertension, atrophic kidney on the left side , depression, anxiety, chronic kidney disease, and recurrent pancreatitis. PAST SURGICAL HISTORY: Appendectomy, cholecystectomy, hysterectomy, and C- section. HOME MEDICATIONS: 1. Lisinopril 40 daily. 2. Metoprolol 50 daily. 3. Pepcid 20 mg daily. 4. Metformin 1000 b.i.d. 5. Elavil 300 mg at bedtime. 6. The patient also uses ibuprofen several times per week as needed for pain. FAMILY HISTORY: Mother with hypertension, stroke, diabetes. Sister with breast cancer. Uncle with alcoholic liver disease. SOCIAL HISTORY: The patient does not drink any alcohol. Denies any drug use. She smokes a pack a day of cigarettes for the past 20 years. She is currently taking care of her granddaughter, but does not have employment otherwis. She states that she has recently lost her insurance which is understandably quite stressful her. She thinks she is going to be able to get insurance with the help of [employer]. REVIEW OF SYSTEMS: Positive as above. Remainder of 12-point review of systems negative. PHYSICAL EXAM: Vital Signs: Afebrile, heart rate 75, blood pressure 118/78, 99% on room air. General: A tearful woman. Appears to be mildly uncomfortable. HEENT: Anicteric sclerae. Mucous membranes moist. Cardiovascular: Regular rate and rhythm. No murmurs, rubs, or gallops. Lungs: Clear to auscultation. Breathing comfortably. Abdomen: Soft, nondistended. Tender diffusely but more pronounced in the epigastrium. No guarding or rebound tenderness. Extremities: No significant edema. Neuro: A and O x3. Psych: Tearful and says that she is scared that she is going to before she ends up getting a full evaluation for her chronic GI symptoms. She is convinced there is something very wrong with her health. She is quite distressed about her issues with insurance as well. DIAGNOSTIC STUDIES/LAB DATA: Labs reviewed and partially summarized in HPI. White count normal; hemoglobin 14.1 on admission, now down to 10.5 with hematocrit of 32; platelet count 153. MCV 86. Comprehensive panel notable for an elevated chloride of 120, carbon dioxide of 15, creatinine of 1.13 which is down from 1.87 on admission. LFTs normal now, and on admission, lipase elevated to 220 on admission, down to 37 today. Micro: E. coli growing from urine. Imaging: As discussed in HPI, abdominal ultrasound demonstrated hepatic steatosis and 0.9 cm CBD without evidence of filling defect. CT abdomen and pelvis demonstrated hepatic steatosis, atrophic left kidney, normal appearing pancreas. IMPRESSION: Ms. Edna Weber is a 47-year-old woman with a history of diabetes, depression and anxiety, recurrent pancreatitis, who is admitted with acute on chronic abdominal pain and nausea/vomiting. Ms. Weber reports multiple gastrointestinal symptoms chronically, although she is admitted predominantly for acute abdominal pain in the left upper quadrant radiating to the back. This pain is accompanied by a mildly elevated lipase to 220. The patient reports that her symptoms are consistent with prior episodes of pancreatitis of which she has had 3 in the past 2 years. It is not clear what workup has been performed, although she believes an MRCP was done within the past year. It seems as if current presentation is consistent with recurrent episode of pancreatitis, although the etiology remains unclear. She is on lisinopril which has been associated in the literature with pancreatitis, although not commonly. Additionally, she says this medication was started after her episodes of pancreatitis began, which makes this connection unlikely. She denies any alcohol use. Calcium normal/low. She is status post cholecystectomy and liver enzymes are normal arguing against biliary cause. Imaging demonstrates CBD at upper limit of normal, although this is likely due to post- cholecystectomy status. No obvious filling defect noted. She does have a moderately elevated triglyceride level, so this can be considered. However, the triglyceride level is not at level (>1000) at which point the association is strong. Hereditary causes of pancreatitis are unlikely given the absence of any pancreatitis in her family history. No mass or pancreatic structural abnormality noted on CT scan. It is possible that she has developed chronic pancreatitis with current presentation representing acute on chronic pancreatitis. In regard to her chronic gastrointestinal symptoms, the patient reports chronic epigastric pain and significant gastroesophageal reflux disease with vomiting. This is in the setting of nonsteroidal antiinflammatory drug use and a remote history of peptic ulcer disease. She also reports progressive dysphagia to solid foods and irregular bowel movements with fluctuations between constipation and diarrhea. She has occasionally seen blood in her stool. Labs demonstrate normocytic anemia currently, although I suspect this may in part be dilutional given the IV fluids for the pancreatitis. Differential for current presentation also includes PUD, although this would not explain lipase elevation. RECOMMENDATIONS: # Acute Pancreatitis: 1. Continue IV fluids and symptomatic treatments per primary team. 2. Clear diet for now as the patient seems to be tolerating this fairly well. Advance as tolerated. 3. Please obtain outside records from [facility]. In particular, I am interested in pancreatitis workup including MRCP results. Patient adamant that a repeat MRCP not be performed unless she is "knocked out." Will defer for now. 4. Patient will need followup in outpatient GI clinic to discuss the recurrent pancreatitis. I will likely recommend endoscopic ultrasound to evaluate for structural abnormalities, mass, microlithiasis in bile duct, or evidence of chronic pancreatitis. # Dysphagia/Chronic Upper GI symptoms: 1. We will tentatively plan for an EGD (with esophageal, gastric, and duodenal biopsies) on to evaluate the progressive dysphagia and upper GI complaints. Will also rule-out PUD, although I suspect pancreatitis is the cause of more acute symptoms. Please keep n.p.o. after midnight. 2. PPI IV b.i.d. # Anemia/Intermittent BRBPR/Chronic Lower GI symptoms: 1. Please check stool occult and iron studies. 2. Can consider colonoscopy given lower GI symptoms, intermittent rectal bleeding, and anemia, although this can likely be done in the outpatient setting. The patient is optimistic that she will have health insurance soon after discharge. Thank you for this consult. GI will continue to follow. [id number]/[facility] #: [id number] JELENA
[2018-01-14] MEDS: Magnesium Hydroxide LIQ* 30 ML UDC PO SCH ×2 (09:06→20:49)
[2018-01-14] MEDS: Metoprolol Tartrate TAB* 50 mg PO SCH (10:45)
[2018-01-14] MEDS ORDERED: Midazolam* 1 MG/ML 10 ML VIAL (10 MG) ONE (14:32)
[2018-01-14] MEDS ORDERED: fentaNYL* 50 MCG/ML 2 ML VIAL (100 MCG VIAL) ONE (14:32)
--- NOTE | 2018-01-14 14:52 | PN ---
Subjective Date of Service: 01/14/18 Interval History: Pt reports left upper quadrant abdominal pain that radiates to back is consistent at 7/10, however appears to be in no acute distress. Denies vomiting , but does feel nausea related to anxiety about her EGD. She denies dysuria, suprapubic pain. Says she has been able to empty her bladder more regularly today. Still with no BM. Denies chest pain, shortness of breath, headache, lightheadedness. Objective Active Medications: Amitriptyline HCl (Elavil Tab*) 300 mg PO BEDTIME [facility] Last Admin: 01/13/18 20:30 Dose: 300 mg Dextrose (D50w Syringe 50 Ml*) 12.5 gm IV PUSH .FOR FS < 60 - SS PRN PRN Reason: FS < 60 Heparin Sodium (Porcine) (Heparin Vial(*)) 5,000 units SUBCUT Q8HR [facility] Last Admin: 01/14/18 14:10 Dose: 5,000 units Hydromorphone HCl (Dilaudid Inj1s*) 1 mg IV SLOW PU Q4H PRN PRN Reason: PAIN - MODERATE TO SEVERE Last Admin: 01/14/18 12:25 Dose: 1 mg Ceftriaxone Sodium 1 gm/ (Sodium Chloride) 50 mls @ 200 mls/hr IVPB Q24H [facility] Last Admin: 01/13/18 22:29 Dose: 200 mls/hr Sodium Chloride (Ns 0.9% 1000 Ml*) 1,000 mls @ 75 mls/hr IV PER RATE [facility] Last Admin: 01/14/18 02:52 Dose: 75 mls/hr Insulin Human Lispro (Humalog*) 0 units SUBCUT AC [facility]; Protocol Last Admin: 01/14/18 12:20 Dose: Not Given Magnesium Hydroxide (Milk Of Magnesia Liq*) 30 ml PO BID [facility] Last Admin: 01/14/18 09:06 Dose: Not Given Metoprolol Tartrate (Lopressor Tab*) 50 mg PO DAILY [facility] Last Admin: 01/14/18 10:45 Dose: Not Given Pantoprazole Sodium (Protonix Iv*) 40 mg IV Q24H [facility] Last Admin: 01/13/18 15:09 Dose: 40 mg Vital Signs - 8 hr 01/14/18 01/14/18 01/14/18 07:31 08:00 08:02 Temperature 98.2 F Pulse Rate 98 Respiratory 18 18 18 Rate Blood Pressure 137/83 (mmHg) O2 Sat by Pulse 100 Oximetry 01/14/18 01/14/18 01/14/18 10:10 12:14 12:25 Temperature 98.1 F Pulse Rate 96 Respiratory 18 18 16 Rate Blood Pressure 139/90 (mmHg) O2 Sat by Pulse 100 Oximetry 01/14/18 14:19 Temperature Pulse Rate Respiratory 18 Rate Blood Pressure (mmHg) O2 Sat by Pulse Oximetry Oxygen Devices in Use Now: None Eyes: No Scleral Icterus, PERRLA Ears/Nose/Mouth/Throat: NL Teeth, Lips, Gums, - - Mucous membranes dry Neck: NL Appearance and Movements; NL JVP, Trachea Midline Respiratory: Symmetrical Chest Expansion and Respiratory Effort, Clear to Auscultation Cardiovascular: NL Sounds; No Murmurs; No JVD, RRR Abdominal: - - Abdomen soft, non distended. Diffusely tender, but especially tender to palpation in left upper quadrant. No rebound or guarding. Extremities: No Edema Skin: No Rash or Ulcers, No Nodules or Sclerosis Neurological: Alert and Oriented x 3 Result Diagrams: 01/14/18 05:09 01/14/18 05:09 Additional Lab and Data: Laboratory Results - last 24 hr 01/12/18 01/12/18 01/13/18 12:27 17:13 05:11 WBC 4.4 RBC 3.70 L Hgb 10.5 L Hct 32 L MCV 86 MCH 28 MCHC 33 RDW 14 Plt Count 153 MPV 8.0 Neut % (Auto) 47.4 Lymph % (Auto) 40.5 Bibb % (Auto) 6.8 Eos % (Auto) 4.2 Baso % (Auto) 1.1 Absolute Neuts (auto) 2.1 Absolute Lymphs (auto) 1.8 Absolute Monos (auto) 0.3 Absolute Eos (auto) 0.2 Absolute Basos (auto) 0.1 Absolute Nucleated RBC 0 Nucleated RBC % 0 Sodium Potassium Chloride Carbon Dioxide Anion Gap BUN Creatinine Est GFR ( Amer) Est GFR (Non-Af Amer) BUN/Creatinine Ratio Glucose POC Glucose (mg/dL) 93 98 Lactic Acid Calcium Total Bilirubin AST ALT Alkaline Phosphatase Total Protein Albumin Globulin Albumin/Globulin Ratio Triglycerides Cholesterol LDL Cholesterol LDL Cholesterol Direct HDL Cholesterol Lipase TSH 01/13/18 01/13/18 05:11 05:11 WBC RBC Hgb Hct MCV MCH MCHC RDW Plt Count MPV Neut % (Auto) Lymph % (Auto) Bibb % (Auto) Eos % (Auto) Baso % (Auto) Absolute Neuts (auto) Absolute Lymphs (auto) Absolute Monos (auto) Absolute Eos (auto) Absolute Basos (auto) Absolute Nucleated RBC Nucleated RBC % Sodium 138 Potassium 4.1 Chloride 120 H Carbon Dioxide 15 L Anion Gap 3 BUN 12 Creatinine 1.13 H Est GFR ( Amer) 61.9 Est GFR (Non-Af Amer) 51.2 BUN/Creatinine Ratio 10.6 Glucose 109 H POC Glucose (mg/dL) Lactic Acid 0.5 Calcium 7.5 L Total Bilirubin 0.20 AST 11 L ALT 10 Alkaline Phosphatase 75 Total Protein 5.0 L Albumin 2.7 L Globulin 2.3 Albumin/Globulin Ratio 1.2 Triglycerides 422 Cholesterol 211 LDL Cholesterol LDL Cholesterol Direct 124 HDL Cholesterol 24.9 Lipase 37 TSH 5.34 Microbiology and Other Data: . Microbiology 01/11/18 18:28 Urine Urine Culture - Final Escherichia Coli Normal Diagnostic Imaging: Comparison: January 11, 2018 CT. Technique: Ultrasound kidneys and urinary bladder. Report: 12.0 x 4.9 x 5.8 cm RIGHT kidney with normal cortical thickness and echogenicity is remarkable for a 0.7 cm maximum dimension mid to inferior pole calyceal stone. No focal RIGHT renal lesions or hydronephrosis. 9.1 x 3.9 x 3.5 cm LEFT kidney is remarkable for severe cortical thinning. 1.1 cm maximum dimension inferior pole calyceal stone. No conspicuous focal renal lesions or hydronephrosis. Prevoid urinary bladder volume estimated at 451 mL. Normal 2.9 mm bladder wall thickness. No focal bladder lesions evident. Bilateral symmetric ureteral jets visualized. Significant post void residual volume estimated at 158 mL. IMPRESSION: #. Bilateral nonobstructing renal calculi. #. Advanced cortical atrophy of the LEFT kidney. #. Negative for hydronephrosis. #. Significant post void residual volume at the urinary bladder. Indication: Right upper quadrant pain. Real-time sonography of the right upper quadrant was performed. The liver is enlarged measuring up to 18.1 cm in length. It is diffusely increased in echogenicity consistent with hepatic steatosis. No focal lesions are noted. The common duct measures up to 0.9 cm which May BE due to postcholecystectomy state of the patient. Patient is status post cholecystectomy. The pancreas head, neck and proximal body demonstrates no mass effect or ductal dilatation. The tail is limited. Aorta and inferior vena cava where visualized is unremarkable. IMPRESSION: Enlarged liver with hepatic steatosis. Patient is status post cholecystectomy. Common duct measures up to 0.9 cm which May BE due to postcholecystectomy state of the patient. EKG Data: . Assess/Plan/Problems-Billing Assessment: 47 yr old female with a pmh of DM2 that is uncontrolled, HTN, nephrolithiasis, depression, anxiety, chronic kidney failure, pancreatitis x3; who presented to the ED with abd pain and was admitted for possible pancreatitis, also being treated for UTI - Patient Problems (1) Abdominal pain Current Visit: Yes Status: Acute Code(s): R10.9 - UNSPECIFIED ABDOMINAL PAIN SNOMED Code(s): 30265051 Comment: - GI following. Appreciate recommendations. Pt will undergo EGD today. - Suspected pancreatitis in the setting of lipase mildy elevated on admission, but now 37. Denies ETOH or drug use, triglycerides 422. Could represent acute on chronic pancreatitis - GI Hx includes pancreatitis x 3, diverticulitis x 2 and 6 yrs of difficulty swallowing, as well as years of irregular bowel movements alternating between diarrhea and constipation - Stool order for blood - pending - Dr Herr following for pain management. Appreciate recommendations. - [facility]CP records from [facility] (2) Pain management Current Visit: Yes Status: Acute Code(s): R52 - PAIN, UNSPECIFIED SNOMED Code(s): 118379064 Comment: - Dr Herr consulting for pain management. Appreciate reqs. - Continue 1 mg dilaudid IV until can transition to PO (3) Urinary retention Current Visit: Yes Status: Acute Code(s): R33.9 - RETENTION OF URINE, UNSPECIFIED SNOMED Code(s): 189185684 Comment: - Improving. PVRs hav been less than 200 mL today - Order placed for Q4 hr bladder scan with straight cath if urine greater than 200 mls - Differential diagnoses for retention are uncontrolled diabetes, neurological conditions, or narcotics or symptom of her UTI (4) UTI (urinary tract infection) Current Visit: Yes Status: Acute Comment: - E. coli in urine. Continue ceftriaxone. (5) Acute renal failure Current Visit: No Status: Acute Comment: - Creatinine 1.13 down from 1.87 on admission. - Known kidney disease with recurrent kidney stones and atrophic left kidney - Requesting records for etiology of atrophic kidney (6) Type II diabetes mellitus Current Visit: No Status: Acute Comment: - Cont sliding scale. Metformin on hold. - BG 101-130 in the setting of NPO - Noncompliant with Lantus, therefore, not reordered at this point. - HgA1c 9.1 - Consider consult with Dr Vasquez (7) HTN (hypertension) Current Visit: No Status: Acute Code(s): I10 - ESSENTIAL (PRIMARY) HYPERTENSION SNOMED Code(s): 94834836 Comment: - Lisinopril held in the setting of hypotension. Consider restarting if SBP remains above 120 - Cont metoprolol (8) DVT prophylaxis Current Visit: No Status: Acute Priority: High Onset Date: 01/18/14 Code (s): FYA9015 - SNOMED Code(s): 011424701 Comment: - Heparin (9) Full code status Current Visit: No Status: Acute Priority: High Onset Date: 01/18/14 Code (s): Z78.9 - OTHER SPECIFIED HEALTH STATUS SNOMED Code(s): 900553144 Comment: - Full code Status and Disposition: Inpatient. Discharge home when medically stable. Awaiting records from Dr Bragg in [facility] with [facility] who is patient's PCP
[2018-01-14] MEDS: Pantoprazole IV* 40 MG IV SCH (15:52)
[2018-01-14] MEDS: Amitriptyline TAB* 100 MG PO SCH (20:46)
[2018-01-14] MEDS: cefTRIAXone(*) 1 GM in NS 0.9% 50 ML* 50 ML IVPB SCH (22:58)
[2018-01-15] MEDS: HYDROmorphone INJ1* 1 MG/ML SYRINGE IV SLOW PU PRN ×4 (01:31→14:43)
--- NOTE | 2018-01-15 03:40 | PRO ---
DATE OF PROCEDURE: 01/14/18 - ROOM #350 PROCEDURE: EGD. INDICATION: Dysphagia. REFERRING PHYSICIAN: None. MEDICATIONS GIVEN: IV fentanyl 100 mcg, IV Versed 12 mg. PROCEDURE IN DETAIL: After the EGD procedure including risks, benefits, and alternatives not limited to perforation, surgery, and/or were explained to the patient, written consent was then obtained, IV medication was given and a bite block was placed between the teeth. An Olympus gastroscope was then inserted into the patient's mouth, advanced down the esophagus, into the stomach , into the distal duodenum. In the esophagus, at the GE junction, the Z-line was intact. No stricture or ring was seen. I did take numerous biopsies to rule out the entirety of the esophagus to evaluate for eosinophilic esophagitis. The biopsies did feel hard when removing the tissue. The scope was advanced through the GE junction and into the body of the stomach. Retroflexion and forward views revealed very mild gastritis and H. pylori biopsy was obtained. The scope was advanced through a widely patent pylorus in the duodenal bulb, into the distal duodenal, both of which were unremarkable. Scope was then withdrawn from the patient. Biopsies were obtained for celiac disease. She tolerated the procedure well and was returned to the hospital room in stable condition. IMPRESSION: 1. Complete upper endoscopy into the distal duodenum with biopsies. 2. Biopsies for Helicobacter pylori. 3. Biopsies for eosinophilic esophagitis. 4. Biopsies for celiac disease. 5. I will follow up on all the biopsies and report back to the patient at that time. [id number]/[facility] #: [id number]
[2018-01-15] MEDS: Heparin VIAL(*) 5000 UNITS/ML VIAL (FIVE THOUSAND) SUBCUT SCH ×3 (05:37→22:00)
[2018-01-15 05:46] LABS: EGFR Non-African American 51.7 (>60)
[2018-01-15] MEDS: NS 0.9% 1000 ML* 1,000 ML IV SCH ×2 (06:24→19:37)
[2018-01-15] MEDS: Insulin LISPRO* 1 UNITS UNIT SUBCUT SCH ×3 (07:56→17:37)
[2018-01-15] MEDS: Magnesium Hydroxide LIQ* 30 ML UDC PO SCH ×2 (08:25→20:47)
[2018-01-15] MEDS: Metoprolol Tartrate TAB* 50 mg PO SCH (08:25)
[2018-01-15] MEDS: Polyethylene Glycol 3350* 17 GM PACKET PO SCH (11:22)
--- NOTE | 2018-01-15 11:54 | PN ---
Subjective Date of Service: 01/15/18 Interval History: Pt still with complaints of diffuse abdominal pain with peak pain in LUQ radiating to back and occasional nausea. Does not have pain with urination, but does report some discomfort. Has been having PVRs just under 200. Also no BM. She is requesting her diet be advanced to solids, which I will do. Pt denies shortness of breath, chest pain, palpitations, dizziness, headache. Objective Active Medications: Amitriptyline HCl (Elavil Tab*) 300 mg PO BEDTIME [facility] Last Admin: 01/14/18 20:46 Dose: 300 mg Dextrose (D50w Syringe 50 Ml*) 12.5 gm IV PUSH .FOR FS < 60 - SS PRN PRN Reason: FS < 60 Heparin Sodium (Porcine) (Heparin Vial(*)) 5,000 units SUBCUT Q8HR [facility] Last Admin: 01/15/18 05:37 Dose: 5,000 units Hydromorphone HCl (Dilaudid Inj1s*) 1 mg IV SLOW PU Q4H PRN PRN Reason: PAIN - MODERATE TO SEVERE Last Admin: 01/15/18 09:50 Dose: 1 mg Ceftriaxone Sodium 1 gm/ (Sodium Chloride) 50 mls @ 200 mls/hr IVPB Q24H [facility] Last Admin: 01/14/18 22:58 Dose: 200 mls/hr Sodium Chloride (Ns 0.9% 1000 Ml*) 1,000 mls @ 75 mls/hr IV PER RATE [facility] Last Admin: 01/15/18 06:24 Dose: 75 mls/hr Insulin Human Lispro (Humalog*) 0 units SUBCUT AC [facility]; Protocol Last Admin: 01/15/18 07:56 Dose: Not Given Magnesium Hydroxide (Milk Of Magnesia Liq*) 30 ml PO BID [facility] Last Admin: 01/15/18 08:25 Dose: 30 ml Metoprolol Tartrate (Lopressor Tab*) 50 mg PO DAILY [facility] Last Admin: 01/15/18 08:25 Dose: 50 mg Pantoprazole Sodium (Protonix Iv*) 40 mg IV Q24H [facility] Last Admin: 01/14/18 15:52 Dose: 40 mg Polyethylene Glycol/Electrolytes (Miralax*) 17 gm PO DAILY [facility] Last Admin: 01/15/18 11:22 Dose: 17 gm Vital Signs - 8 hr 01/15/18 01/15/18 01/15/18 05:35 06:44 07:38 Temperature 98.3 F Pulse Rate 100 Respiratory 20 20 16 Rate Blood Pressure 148/86 (mmHg) O2 Sat by Pulse 100 Oximetry 01/15/18 01/15/18 01/15/18 07:48 09:50 11:26 Temperature Pulse Rate Respiratory 18 16 18 Rate Blood Pressure (mmHg) O2 Sat by Pulse Oximetry Oxygen Devices in Use Now: None Eyes: No Scleral Icterus, PERRLA Ears/Nose/Mouth/Throat: NL Teeth, Lips, Gums, - - Mucous membranes very dry Neck: NL Appearance and Movements; NL JVP, Trachea Midline Respiratory: Symmetrical Chest Expansion and Respiratory Effort - Ronchi in right lung base that clear with cough Cardiovascular: NL Sounds; No Murmurs; No JVD, RRR, No Edema - Hyperactive bowel sounds. Abdomen soft and non-distended. Diffuse abdominal tenderness that is worse in LUQ and radiates to back. Extremities: No Edema Skin: No Rash or Ulcers Neurological: Alert and Oriented x 3, NL Muscle Strength and Tone Nutrition: Taking PO's Result Diagrams: 01/14/18 05:09 01/15/18 05:11 Additional Lab and Data: Laboratory Results - last 24 hr 01/12/18 01/12/18 01/13/18 12:27 17:13 05:11 WBC 4.4 RBC 3.70 L Hgb 10.5 L Hct 32 L MCV 86 MCH 28 MCHC 33 RDW 14 Plt Count 153 MPV 8.0 Neut % (Auto) 47.4 Lymph % (Auto) 40.5 Sumner % (Auto) 6.8 Eos % (Auto) 4.2 Baso % (Auto) 1.1 Absolute Neuts (auto) 2.1 Absolute Lymphs (auto) 1.8 Absolute Monos (auto) 0.3 Absolute Eos (auto) 0.2 Absolute Basos (auto) 0.1 Absolute Nucleated RBC 0 Nucleated RBC % 0 Sodium Potassium Chloride Carbon Dioxide Anion Gap BUN Creatinine Est GFR ( Amer) Est GFR (Non-Af Amer) BUN/Creatinine Ratio Glucose POC Glucose (mg/dL) 93 98 Lactic Acid Calcium Total Bilirubin AST ALT Alkaline Phosphatase Total Protein Albumin Globulin Albumin/Globulin Ratio Triglycerides Cholesterol LDL Cholesterol LDL Cholesterol Direct HDL Cholesterol Lipase TSH 12/05/18 12/05/18 05:11 05:11 WBC RBC Hgb Hct MCV MCH MCHC RDW Plt Count MPV Neut % (Auto) Lymph % (Auto) Sumner % (Auto) Eos % (Auto) Baso % (Auto) Absolute Neuts (auto) Absolute Lymphs (auto) Absolute Monos (auto) Absolute Eos (auto) Absolute Basos (auto) Absolute Nucleated RBC Nucleated RBC % Sodium 138 Potassium 4.1 Chloride 120 H Carbon Dioxide 15 L Anion Gap 3 BUN 12 Creatinine 1.13 H Est GFR ( Amer) 61.9 Est GFR (Non-Af Amer) 51.2 BUN/Creatinine Ratio 10.6 Glucose 109 H POC Glucose (mg/dL) Lactic Acid 0.5 Calcium 7.5 L Total Bilirubin 0.20 AST 11 L ALT 10 Alkaline Phosphatase 75 Total Protein 5.0 L Albumin 2.7 L Globulin 2.3 Albumin/Globulin Ratio 1.2 Triglycerides 422 Cholesterol 211 LDL Cholesterol LDL Cholesterol Direct 124 HDL Cholesterol 24.9 Lipase 37 TSH 5.34 Microbiology and Other Data: . Microbiology 01/11/18 18:28 Urine Urine Culture - Final Escherichia Coli Normal Diagnostic Imaging: Comparison: January 11, 2018 CT. Technique: Ultrasound kidneys and urinary bladder. Report: 12.0 x 4.9 x 5.8 cm RIGHT kidney with normal cortical thickness and echogenicity is remarkable for a 0.7 cm maximum dimension mid to inferior pole calyceal stone. No focal RIGHT renal lesions or hydronephrosis. 9.1 x 3.9 x 3.5 cm LEFT kidney is remarkable for severe cortical thinning. 1.1 cm maximum dimension inferior pole calyceal stone. No conspicuous focal renal lesions or hydronephrosis. Prevoid urinary bladder volume estimated at 451 mL. Normal 2.9 mm bladder wall thickness. No focal bladder lesions evident. Bilateral symmetric ureteral jets visualized. Significant post void residual volume estimated at 158 mL. IMPRESSION: #. Bilateral nonobstructing renal calculi. #. Advanced cortical atrophy of the LEFT kidney. #. Negative for hydronephrosis. #. Significant post void residual volume at the urinary bladder. Indication: Right upper quadrant pain. Real-time sonography of the right upper quadrant was performed. The liver is enlarged measuring up to 18.1 cm in length. It is diffusely increased in echogenicity consistent with hepatic steatosis. No focal lesions are noted. The common duct measures up to 0.9 cm which May BE due to postcholecystectomy state of the patient. Patient is status post cholecystectomy. The pancreas head, neck and proximal body demonstrates no mass effect or ductal dilatation. The tail is limited. Aorta and inferior vena cava where visualized is unremarkable. IMPRESSION: Enlarged liver with hepatic steatosis. Patient is status post cholecystectomy. Common duct measures up to 0.9 cm which May BE due to postcholecystectomy state of the patient. EKG Data: . Assess/Plan/Problems-Billing Assessment: 47 yr old female with a pmh of DM2 that is uncontrolled, HTN, nephrolithiasis, depression, anxiety, chronic kidney failure, pancreatitis x3; who presented to the ED with abd pain and was admitted for possible pancreatitis, also being treated for UTI - Patient Problems (1) Abdominal pain Current Visit: Yes Status: Acute Code(s): R10.9 - UNSPECIFIED ABDOMINAL PAIN SNOMED Code(s): 22598660 Comment: - GI following. EGD yesterday with no immediate findings, but biopsies have been sent. - Suspected pancreatitis in the setting of lipase mildy elevated on admission, but now 37. Denies ETOH or drug use, triglycerides 422. Could represent acute on chronic pancreatitis. Diet advanced today from clear to solds. Will require outpatient follow up. - GI Hx includes pancreatitis x 3, diverticulitis x 2 and 6 yrs of difficulty swallowing, as well as years of irregular bowel movements alternating between diarrhea and constipation - Stool order for blood - pending - Dr Herr following for pain management. Appreciate recommendations. - MRCP records from [facility] (2) Pain management Current Visit: Yes Status: Acute Code(s): R52 - PAIN, UNSPECIFIED SNOMED Code(s): 939675995 Comment: - Dr Herr consulting for pain management. Appreciate reqs. - Transition to PO pain control today as pt is tolerating diet (3) Urinary retention Current Visit: Yes Status: Acute Code(s): R33.9 - RETENTION OF URINE, UNSPECIFIED SNOMED Code(s): 123205687 Comment: - PVRs consistently just under 200. Spoke with Dr Boswell who recommended carmona or scheduled straight cath as this would still make it diffucult for her to clear the UTI and could be the reason she is still experiencing pain. - Differential diagnoses for retention are uncontrolled diabetes, neurological conditions, or narcotics or symptom of her UTI (4) UTI (urinary tract infection) Current Visit: Yes Status: Acute Comment: - E. coli in urine. Continue ceftriaxone. - Will trial carmona for 24h in the setting of urinary retention as mentioned above after talking with Dr Boswell - Imaging shows no hydro and stone is non obstructing, so stent is not indicated at this time (5) Acute renal failure Current Visit: No Status: Acute Comment: - Creatinine 1.12 down from 1.87 on admission. This seems to be her baseline - Known kidney disease with recurrent kidney stones and atrophic left kidney - Requesting records for etiology of atrophic kidney (6) Type II diabetes mellitus Current Visit: No Status: Acute Comment: - Cont sliding scale. Metformin on hold. - BG has been under fair contol while NPO and on clears, however will have to follow up now that she is eating. Noncompliant with Lantus. - HgA1c 9.1 (7) HTN (hypertension) Current Visit: No Status: Acute Code(s): I10 - ESSENTIAL (PRIMARY) HYPERTENSION SNOMED Code(s): 79409587 Comment: - Restarting lisinopril as SBP has been 140-150s - Cont metoprolol (8) Normochromic normocytic anemia Current Visit: Yes Status: Acute Code(s): D64.9 - ANEMIA, UNSPECIFIED SNOMED Code(s): 38994580 Comment: - Iron studies sent - Low iron, low transferrin - likely anemia of chronic disease. Colonoscopy is recommended per GI as pt has hx of bloody stools reported. FOB was ordered, but has not had BM - H/H stable (9) DVT prophylaxis Current Visit: No Status: Acute Priority: High Onset Date: 01/18/14 Code (s): TAQ7045 - SNOMED Code(s): 570307380 Comment: - Heparin (10) Full code status Current Visit: No Status: Acute Priority: High Onset Date: 01/18/14 Code (s): Z78.9 - OTHER SPECIFIED HEALTH STATUS SNOMED Code(s): 658777130 Comment: - Full code Status and Disposition: Inpatient. Discharge home when medically stable. Awaiting records from Dr Bragg in [facility] with Cecile Gray who is patient's PCP
[2018-01-15] MEDS ORDERED: Senna TAB PO ONE (14:52)
[2018-01-15] MEDS ORDERED: Bisacodyl SUPP* 10 MG SUPP PR PRN (14:55)
[2018-01-15] MEDS: Pantoprazole IV* 40 MG IV SCH (15:54)
[2018-01-15] MEDS: oxyCODONE/Acetamin 5/325 MG* TAB PO PRN ×2 (15:55→21:59)
[2018-01-15] MEDS: Amitriptyline TAB* 100 MG PO SCH (20:46)
[2018-01-15] MEDS: cefTRIAXone(*) 1 GM in NS 0.9% 50 ML* 50 ML IVPB SCH (23:02)
[2018-01-16] MEDS: Heparin VIAL(*) 5000 UNITS/ML VIAL (FIVE THOUSAND) SUBCUT SCH ×2 (05:37→13:53)
[2018-01-16] MEDS: oxyCODONE/Acetamin 5/325 MG* TAB PO PRN ×2 (05:41→12:39)
[2018-01-16] MEDS: Insulin LISPRO* 1 UNITS UNIT SUBCUT SCH ×3 (07:53→16:57)
[2018-01-16] MEDS: Metoprolol Tartrate TAB* 50 mg PO SCH (08:53)
[2018-01-16] MEDS: Magnesium Hydroxide LIQ* 30 ML UDC PO SCH (08:54)
[2018-01-16] MEDS: Polyethylene Glycol 3350* 17 GM PACKET PO SCH (08:54)
[2018-01-16] MEDS: NS 0.9% 1000 ML* 1,000 ML IV SCH (08:55)
[2018-01-16] MEDS ORDERED: Lisinopril TAB* 10 MG PO SCH ×2 (09:00→13:00)
[2018-01-16 16:14] VITALS: BP 147/92
[2018-01-16] MEDS: Pantoprazole IV* 40 MG IV SCH (16:17)
--- NOTE | 2018-01-17 07:05 | DS ---
CC: Dr. Bragg in [place]; Provider at [facility]; Dr. Farmer; Dr. Herr * DISCHARGE SUMMARY: DATE OF ADMISSION: 01/12/18 DATE OF DISCHARGE: 01/16/18 PROVIDER: Rossi Maciel NP ATTENDING: Dr. Ramirez * (dictated by Rossi Maciel NP). PRIMARY CARE PROVIDER: The patient reports her primary care provider is Dr. Bragg in [place]. It is also indicated in the chart that she sees a provider at the [facility] now that she has lost her insurance. CONSULTING GI PHYSICIAN: Dr. Farmer. CONSULTING PAIN PHYSICIAN: Dr. Herr. PRIMARY DIAGNOSES: 1. Acute pancreatitis. 2. Escherichia coli urinary tract infection. SECONDARY DIAGNOSES: 1. Hypertension. 2. Type 2 diabetes. 3. Normochromic normocytic anemia. 4. Acute on chronic renal failure. 5. Urinary retention. MEDICATIONS ON DISCHARGE: 1. Metformin 1000 mg p.o. daily. 2. Elavil 300 mg p.o. at bedtime. 3. Pepcid 20 mg p.o. daily p.r.n. 4. Lisinopril 40 mg p.o. daily. 5. Metoprolol tartrate 50 mg p.o. daily. 6. Percocet 1 tab p.o. q.6 hours p.r.n. The max daily dose of 3 tabs. 7. Cipro 500 mg p.o. b.i.d. for 3 days. DIAGNOSTIC STUDIES WHILE IN THE HOSPITAL: 1. Abdomen and pelvis CT: Atrophic left kidney, calculi in the left renal collecting system measuring up to 6 mm. No obstructive uropathy noted. Hepatic steatosis. 2. Chest x-ray with no acute cardiopulmonary disease. 3. Abdomen ultrasound: Enlarged liver with hepatic steatosis. The patient is status post cholecystectomy, common duct measures up to 0.9 cm, which may be due to post cholecystectomy state of the patient. 4. Abdomen and bladder ultrasound/renal ultrasound: Bilateral nonobstructing renal calculi, advanced cortical atrophy of the left kidney, negative for hydronephrosis, significant postvoid residual at the urinary bladder. 5. EGD procedure report: Complete upper endoscopy into the distal duodenum with biopsies for H. pylori, eosinophilic esophagitis, celiac disease. No strictures or rings were seen. Biopsy report: Duodenum: Benign small intestinal mucosa with no significant pathological abnormalities. No evidence of villous blunting or increased intraepithelial lymphocytes. Esophagus biopsy : Benign squamous mucosa with mild erosive changes. No evidence of eosinophilic esophagitis. HOSPITAL COURSE: Ms. Weber is a 47-year-old female with a past medical history significant for nephrolithiasis with sepsis, chronic renal failure, history of pancreatitis x3, anxiety, diabetes, and hypertension, who presented to the ED with complaint of left lower back pain and left to epigastric abdominal pain. She also reported nausea, vomiting and chills, decreased appetite and burning with urination, as well as having an episode of blood in her stool once in the past few days. She also reported difficulty swallowing for the past 3 years. The patient was found to have mildly elevated lipase of 220 as well as a urinalysis suspicious for UTI. She was started on IV fluids and limited to a clear diet and given Dilaudid for pain control. The patient did have an abdomen and pelvis CT, which demonstrated pancreas with no mass or pancreatic duct dilation. The patient did have calculi in the left renal collecting system measuring up to 6 mm, but no obstructive uropathy was noted. The patient also had an abdomen and bladder ultrasound, which also demonstrated bilateral nonobstructing renal calculi without hydronephrosis. As the stones were nonobstructing, she is not a candidate for stenting. Of note, on the patient's first night of admission, she was hypotensive to a systolic blood pressure of 81, but responded well to fluid boluses. The patient's lipase trended down on the clear diet with IV fluids supplementation. A GI consult with Dr. Farmer was obtained due to the recurrent nature of the patient's pancreatitis as well as her other GI complaints. The patient told Dr. Kelvin Singh that she did not want an MRCP unless she was going to be "knocked out" and she said that she has had this procedure at [facility]; however, the records were requested and some records were obtained from [facility]; however , there was no mention of an MRCP, so it is unclear if this is the procedure that she had. Dr. Farmer does recommend that she follow up with her as an outpatient due to the recurrent nature of her pancreatitis. Dr. Farmer is recommending that she undergo an endoscopic ultrasound to evaluate for structural abnormalities, masses, microlithiasis in the bile duct or evidence of chronic pancreatitis. The patient did undergo an EGD while admitted with biopsies taken to further investigate her issues with progressive dysphagia and of her GI complaints. The biopsies were negative, as above and no notable findings were noted on the EGD. As the patient does report a history of intermittent bright red blood per rectum and chronic lower GI symptoms, a colonoscopy should be considered and the patient is recommended to follow up with Dr. Farmer as an outpatient for this procedure. The patient's urine culture was positive for E. coli. The CT and ultrasound both showed no obstructing stones. She was treated with ceftriaxone for 5 days and will be given an additional 3 days of Cipro as an outpatient. Also of note , the patient did have elevated postvoid residual just under 200 mL and had a De Anda placed for 24 hours. When the De Anda was removed, the patient was able to void appropriately with a postvoid residual of just 20 mL. At the time of discharge, the patient reports that her back and abdominal pain have improved. She was initially requiring IV Dilaudid, but was transitioned to p.o. Percocet. The patient's diet was advanced from clears to low fat and low residue, which the patient tolerated without increase in pain and without nausea and vomiting. Of note, the patient had an LEVY on admission with a creatinine of 1.87 that resolved with fluid administration and at the time of discharge was 1.12, which appears to be her baseline. Please note that this is just a summary of a complex hospital stay, please see the history and physical by Bonnie oHrton NP from 01/11/18 for more details. PHYSICAL EXAM: Vital Signs: Temp 99.8, pulse rate 96, respiratory rate 18, O2 sat 98% on room air, blood pressure 147/92. General: The patient is pleasant, calm, and cooperative. She was ambulating around the unit with ease. She appeared to be in no acute distress. HEENT: Normocephalic, atraumatic. Pupils are equal, round, and reactive to light and accommodation. Extraocular movements are intact. Neck: Supple. No lymphadenopathy noted. No JVD appreciated. Respiratory: No accessory muscle use. Lungs were clear to auscultation. Normal work of breathing. Cardiac: Regular rate and rhythm. S1 and S2 present. No murmurs, rubs, or gallops heard. Abdomen: Soft, nondistended. The patient is still experiencing left upper quadrant tenderness ; however, this has diminished from previous examination. There were bowel sounds x4. No rebound or guarding. Extremities: No lower extremity edema. DP and PT pulses are 2+ and symmetric. Musculoskeletal: No clubbing or cyanosis noted. The patient exhibited 5/5 strength in all 4 extremities. Neuro : The patient is alert and oriented x3. Psych: The patient is calm and cooperative. Skin: There are no rashes or abnormalities seen. DISPOSITION: The patient is stable for discharge to home. DIET: Diabetic friendly diet. ACTIVITY: Activity as tolerated. FOLLOWUP: 1. The patient is instructed to follow up with her primary care physician in the next 4 to 10 days. 2. The patient is also instructed to follow up with Dr. Farmer in the next 4 weeks for further workup of her recurrent pancreatitis as well as additional workup surrounding her history of chronic dysphagia and chronic lower GI symptoms, colonoscopy is recommended. TIME SPENT: Time spent on this discharge was 60 minutes. ROSSI MACIEL NP [id number]/[facility] #: [id number] JELENA
== END 2018-01-16 17:00 | disposition home or self-care (01) | DRG 689 ==
LOC: ED 12:12 → SSU 15:48 → OBSVTOIN 01-12 16:00
PROVIDERS: ADMIT Student in an Organized Health Care Education/Training Program; ATTEND Internal Medicine
PROC: 0DB98ZX Excision of Duodenum, Via Natural or Artificial Opening Endoscopic, Diagnostic (ICD-10-PCS; principal; 2018-01-14)
PROC: 0DB78ZX Excision of Stomach, Pylorus, Via Natural or Artificial Opening Endoscopic, Diagnostic (ICD-10-PCS; 2018-01-14)
PROC: 0DB68ZX Excision of Stomach, Via Natural or Artificial Opening Endoscopic, Diagnostic (ICD-10-PCS; 2018-01-14)
PROC: 0DB38ZX Excision of Lower Esophagus, Via Natural or Artificial Opening Endoscopic, Diagnostic (ICD-10-PCS; 2018-01-14)
PROC: 0T9B70Z Drainage of Bladder with Drainage Device, Via Natural or Artificial Opening (ICD-10-PCS; 2018-01-16)
DX: N13.6 Pyonephrosis (principal); K85.90 Acute pancreatitis without necrosis or infection, unspecified; K86.1 Other chronic pancreatitis; N17.9 Acute kidney failure, unspecified; N18.4 Chronic kidney disease, stage 4 (severe); F32.9 Major depressive disorder, single episode, unspecified; F41.9 Anxiety disorder, unspecified; F17.210 Nicotine dependence, cigarettes, uncomplicated; I12.9 Hypertensive chronic kidney disease with stage 1 through stage 4 chronic kidney disease, or unspecified chronic kidney disease; K59.00 Constipation, unspecified; R05 Cough; H91.91 Unspecified hearing loss, right ear; K21.9 Gastro-esophageal reflux disease without esophagitis; D64.9 Anemia, unspecified; B96.20 Unspecified Escherichia coli [E. coli] as the cause of diseases classified elsewhere; E11.22 Type 2 diabetes mellitus with diabetic chronic kidney disease; R33.9 Retention of urine, unspecified; N26.1 Atrophy of kidney (terminal); K76.0 Fatty (change of) liver, not elsewhere classified; I95.9 Hypotension, unspecified; K29.70 Gastritis, unspecified, without bleeding; Z81.1 Family history of alcohol abuse and dependence; Z90.710 Acquired absence of both cervix and uterus; Z90.49 Acquired absence of other specified parts of digestive tract; Z82.3 Family history of stroke; Z82.49 Family history of ischemic heart disease and other diseases of the circulatory system; Z83.3 Family history of diabetes mellitus; Z80.3 Family history of malignant neoplasm of breast; Z79.84 Long term (current) use of oral hypoglycemic drugs
CPT/HCPCS: 36415; 71046; 74176; 76705; 76770; 80048; 80053; 80061; 80320; 80329; 81003; 81015; 82550; 82728; 83036; 83540; 83550; 83605; 83690; 83721; 84443; 84484; 84702; 85025; 86140; 87077; 87086; 87186; 88305; 93005; 99156; 99157; 99284; A9270-GY; G0378; G0480; J0696; J1170; J1644; J2250; J2270; J2405; J3010

== ENCOUNTER 2018-02-01 10:07 | Inpatient (IN) | payer SELFPAY ==
[2018-02-01] MEDS ORDERED: HYDROmorphone INJ1* 1 MG/ML SYRINGE IV SLOW PU ONE ×2 (10:34→15:52)
[2018-02-01] MEDS ORDERED: NS 0.9% 1000 ML* 2,000 ML IV ONE (10:34)
[2018-02-01] MEDS ORDERED: Ondansetron INJ* 2 MG/ML VIAL IV ONE (10:35)
--- NOTE | 2018-02-01 10:39 | ED ---
Abdominal Pain/Female - HPI Summary HPI Summary: The patient is a 47 y/o F presenting to [facility] with a chief complaint of cramping LUQ pain for the last week with severe worsening since yesterday. She has hx of pancreatitis, which she was recently admitted to [facility] for. While her pain was managed during admission, she states that she was still having pain when discharged, although for the first four days at home, she was taking BID Percocet in addition to Ibuprofen, but she ran out of the Percocet and has just been taking Ibuprofen for some relief. Yesterday, her pain worsened to 10/10 in severity and began radiating to her left flank and back, and her blood glucose was 600. Her current pain is rated 8/10 in severity. In addition to the abd pain , she additionally co/o of nausea without vomiting, decreased appetite, and diarrhea (1 week). She denies fevers. For her DM, she takes Metformin 1000mg BID , but she does not take insulin due to financial reasons. She is a heavy smoker and drinks occasionally. - History of Current Complaint Chief Complaint: EDAbdPain Stated Complaint: SEVERE PAIN IN LEFT SIDE OF STOMACH Time Seen by Provider: 02/01/18 10:25 Hx Obtained From: Patient Hx Last Menstrual Period: 1992 Onset/Duration: Lasting Days - one week, Still Present, Worse Since - yesterday Timing: Days - one week Severity Initially: Severe Severity Currently: Severe Pain Intensity: 8 Pain Scale Used: 0-10 Numeric Location: Discrete At: LUQ Radiates: Yes Radiates to: Back - left, Flank - left Character: Cramping Aggravating Factor(s): Nothing Alleviating Factor(s): Other: - Percocet and Ibuprofen Associated Signs and Symptoms: Positive: Decreased Appetite, Nausea, Diarrhea. Negative: Fever, Vomiting Allergies/Adverse Reactions: Allergies Allergy/AdvReac Type Severity Reaction Status Date / Time oxybutynin Allergy Night Verified 01/11/18 12:18 Terrors paroxetine [From Paxil] Allergy Seizures Verified 01/11/18 12:18 pneumococcal vaccine Allergy Rash Verified 01/11/18 12:18 PMH/Surg Hx/FS Hx/Imm Hx Endocrine/Hematology History: Reports: Hx Diabetes Denies: Hx Anticoagulant Therapy, Hx Thyroid Disease Cardiovascular History: Reports: Hx Hypercholesterolemia, Hx Hypertension Denies: Hx Congestive Heart Failure, Hx Deep Vein Thrombosis, Hx Myocardial Infarction, Hx Pacemaker/ICD Respiratory History: Denies: Hx Asthma, Hx Chronic Obstructive Pulmonary Disease (COPD), Hx Lung Cancer, Hx Pneumonia, Hx Pulmonary Embolism GI History: Reports: Hx Gastroesophageal Reflux Disease, Other GI Disorders - Pancreatitis Denies: Hx Gall Bladder Disease, Hx Gastrointestinal Bleed, Hx Ulcer, Hx Urosepsis History: Reports: Hx Kidney Stones - RT URETERAL , left kidney 05/2017, Hx Renal Disease - She had a stent put in left kidney. Atrophy in left kidney, Other Problems/Disorders Denies: Hx Dialysis Musculoskeletal History: Reports: Hx Fibromyalgia Sensory History: Reports: Hx Contacts or Glasses, Hx Hearing Problem - MARSHALL right ear Denies: Hx Hearing Aid Opthamlomology History: Reports: Hx Contacts or Glasses Neurological History: Denies: Hx Dementia, Hx Migraine, Hx Seizures, Hx Transient Ischemic Attacks (TIA) Psychiatric History: Reports: Hx Anxiety, Hx Depression, Other Psychiatric Issues/Disorders - borderline personality disorder Denies: Hx Schizophrenia, Hx Bipolar Disorder - Surgical History Surgery Procedure, Year, and Place: HYSTERECTOMY, APPENDECTOMY, CHOLECYSTECTOMY , KNEE OPERATIONS, EAR OPERATIONS, , KIDNEY STENTING (LEFT) Hx Anesthesia Reactions: No - Immunization History Date of Influenza Vaccine: 12/18/17 Infectious Disease History: No Infectious Disease History: Denies: Traveled Outside the [place] in Last 30 Days - Family History Known Family History: Positive: Cardiac Disease, Hypertension - Social History Alcohol Use: Occasionally Hx Substance Use: No Substance Use Type: Reports: None Hx Tobacco Use: Yes Smoking Status (MU): Light Every Day Tobacco Smoker Type: Cigarettes Amount Used/How Often: 1 PPD Review of Systems Negative: Fever Positive: Abdominal Pain - LUQ, Diarrhea, Nausea, Other - decreased appetite. Negative: Vomiting All Other Systems Reviewed And Are Negative: Yes Physical Exam - Summary Physical Exam Summary: Appearance: Distraught, anxious, and tearful woman, obese Skin: Warm, dry, no obvious rash Eyes: sclera anicteric, no conjunctival pallor ENT: mucous membranes moist, pharynx appears normal Neck: Supple, nontender Respiratory: Clear to auscultation, no signs of respiratory distress Cardiovascular: Normal S1, S2. No murmurs. Normal distal pulses in tibial and radial bilaterally. Abdomen: Soft, upper abdominal tenderness without peroneal signs , normal active bowel sounds present Musculoskeletal: Normal, Strength/ROM Intact Neurological: A&Ox3, awake and alert, mentation is normal, speech is fluent and appropriate Psychiatric: affect is normal, does not appear anxious or depressed Triage Information Reviewed: Yes Vital Signs On Initial Exam: Initial Vitals Temp Pulse Resp BP Pulse Ox 96.8 F 108 26 158/116 98 02/01/18 10:19 02/01/18 10:19 02/01/18 10:19 02/01/18 10:19 02/01/18 10:19 Vital Signs Reviewed: Yes Diagnostics - Vital Signs Vital Signs Temp Pulse Resp BP Pulse Ox 02/01/18 10:19 96.8 F 108 26 158/116 98 - Laboratory Result Diagrams: 02/02/18 04:38 02/02/18 09:34 Lab Statement: Any lab studies that have been ordered have been reviewed, and results considered in the medical decision making process. - EKG 11:31 Cardiac Rate: Tachycardia - 106 BPM EKG Rhythm: Sinus Tachycardia Summary of EKG Findings: Sinus tachycardia at 106BPM, P waves, QRS complex, and T waves are within normal limits, T waves and intervals are normal, no ischemic changes. Re-Evaluation - Re-Evaluation First Eval Re-Evaluation Time: 11:38 Change: Improved Comment: The pain has improved with medication. Second Eval Re-Evaluation Time: 12:19 Change: Unchanged Comment: I spoke with the patient about admission. She accepts this plan. Abdominal Pain Fem Course/Dx - Course Course Of Treatment: The patient is a 47 y/o F with a chief complaint of cramping LUQ pain radiating to the left flank and back for the last week with severe worsening since yesterday. She was recently admitted for pancreatitis, but her pain has been unmanagable since she has ran out of Percocet and only has Ibuprofen available. Her blood sugar was at 600 yesterday because she does not have Insulin, but she does take Metformin. She additionally co/o of nausea without vomiting, decreased appetite, and diarrhea (1 week). She denies fevers. Upon physical examination, she is distraught, anxious, tearful women, obese, with upper abdominal tenderness without peroneal signs. In the ED course, the patient is given Ns, Dilaudid, Zofran, and Insulin. Blood work reveals increased WBC BUN, creatine, glucose, and lipase, and decreased ABG base excess. EKG reveals sinus tachycardia. She is diagnosed with pancreatitis and DKA. I consulted with Dr. Ramirez, hospitalist, who accepts the patient for admission to [facility] [12:19]. Critical care time of 40 minutes. I spoke with the patient concerning plan, and she understands the need for admission. - Diagnoses Provider Diagnoses: Pancreatitis, Diabetic ketoacidosis - Provider Notifications Discussed Care Of Patient With: Karly Ramirez - hospitalist Time Discussed With Above Provider: 12:19 Instructed by Provider To: Other - I consulted with Dr. Ramirez, who accepts the patient for admission. - Critical Care Time Critical Care Time: 30-74 min - 40 minutes of critical care time Discharge - Sign-Out/Discharge Documenting (check all that apply): Patient Departure - Patient will be admitted to [facility] for further care by Dr. Ramirez. - Discharge Plan Condition: Stable Disposition: ADMITTED TO [facility] - Billing Disposition and Condition Condition: STABLE Disposition: Admitted to [facility] - Attestation Statements Document Initiated by Madelyn: Yes Documenting Scribe: Sondra Loaiza Provider For Whom Madelyn is Documenting (Include Credential): Dr. Raul Nielsen MD Scribe Attestation: ISondra scribed for Dr. Raul Nielsen MD on 02/02/18 at 1248. Scribe Documentation Reviewed: Yes Provider Attestation: The documentation as recorded by the Sondra harrell accurately reflects the service I personally performed and the decisions made by me, Dr. Raul Nielsen MD Status of Scribe Document: Viewed
[2018-02-01 10:55] LABS: ABS Basophils 0.2 10^3/ul (0-0.2); ABS Eosinophils 0 10^3/ul (0-0.6); ABS Lymphocytes 1.8 10^3/ul (1.0-4.8); ABS Monocytes 1.2 10^3/ul (0-0.8); ABS Neutrophils 17.2 10^3/ul (1.5-7.7); ABS Nucleated RBC 0 10^3/ul; Eosinophil % 0.1 %; Hematocrit 40 % (35-47); Hemoglobin 13.1 g/dl (12.0-16.0); Mean Corpuscular HGB Conc 33 g/dl (31-36); Mean Corpuscular Hemoglobin 27 pg (27-31); Mean Corpuscular Volume 83 fL (80-97); Mean Platelet Volume 7.6 fL (7.4-10.4); Nucleated Red Blood Cells % 0; Platelet Count 422 10^3/ul (150-450); Red Blood Count 4.83 10^6/ul (4.00-5.40); Red Cell Distribution Width 15 % (10.5-15); White Blood Count 20.4 10^3/ul (3.5-10.8)
[2018-02-01 11:12] LABS: Albumin 4.3 g/dL (3.2-5.2); Albumin/Globulin Ratio 1.2 (1-3); BUN/Creatinine Ratio 20.5 (8-20); Calcium 11.2 mg/dL (8.6-10.3); EGFR African American 27.4 (>60); EGFR Non-African American 22.7 (>60); Globulin 3.5 g/dL (2-4); Potassium 5.2 mmol/L (3.5-5.0); Total Bilirubin 0.3 mg/dL (0.2-1.0); Total Protein 7.8 g/dL (6.4-8.9)
[2018-02-01] MEDS ORDERED: HYDROmorphone INJ* 2 MG/ML CARPUJECT SYRINGE IV SLOW PU ONE (11:30)
[2018-02-01] MEDS ORDERED: HYDROmorphone INJ1* 1 MG/ML SYRINGE IV ONE (12:00)
[2018-02-01] MEDS ORDERED: Insulin REGULAR(*) 1 UNITS UNIT IV PUSH ONE (12:16)
[2018-02-01] MEDS ORDERED: Insulin IVPB 100 units/100 ml 100 UNITS/100 ML UNIT IVPB ONE (12:17)
[2018-02-01] MEDS ORDERED: NS 0.9% 1000 ML* 1,000 ML IV ONE (13:15)
[2018-02-01] MEDS ORDERED: Albuterol 2.5 MG/3 ML NEB.SOL* (0.083%) INH PRN (13:20)
[2018-02-01] MEDS ORDERED: HYDROmorphone INJ1* 1 MG/ML SYRINGE IV SLOW PU PRN (13:24)
[2018-02-01] MEDS ORDERED: hydrALAZINE IV* 20 MG/ML VIAL IV SLOW PU PRN (13:27)
[2018-02-01] MEDS ORDERED: NS 0.9% 1000 ML* 1,000 ML IV SCH (13:30)
[2018-02-01] MEDS ORDERED: Metoprolol Tartrate IV* 1 MG/ML 5 ML VIAL IV PRN (14:00)
[2018-02-01] MEDS: Pantoprazole IV* 40 MG IV SCH (15:11)
[2018-02-01] MEDS: Heparin VIAL(*) 5000 UNITS/ML VIAL (FIVE THOUSAND) SUBCUT SCH ×2 (15:14→21:15)
[2018-02-01] MEDS: Ondansetron INJ* 2 MG/ML VIAL IV PRN ×2 (15:49→20:19)
[2018-02-01] MEDS ORDERED: D5NS 0.9% 1000 ML BAG* 1,000 ML IV SCH ×2 (16:00→22:47)
[2018-02-01] MEDS: Insulin IVPB 100 units/100 ml 100 UNITS/100 ML UNIT IVPB SCH (16:12)
[2018-02-01 17:27] LABS: BUN/Creatinine Ratio 21.4 (8-20); EGFR African American 34.6 (>60); EGFR Non-African American 28.6 (>60); Potassium 3.5 mmol/L (3.5-5.0)
[2018-02-01 18:09] LABS: Urine Appearance Cloudy; Urine Bacteria 3+ (Absent); Urine Bilirubin Negative (Negative); Urine Blood Negative (Negative); Urine Color Yellow; Urine Glucose 1+(50 mg/dL) (Negative); Urine Ketones Negative (Negative); Urine Nitrite Negative (Negative); Urine Protein 1+(30 mg/dL) (Negative); Urine Red Blood Cell Trace(0-2/hpf) (Absent); Urine Specific Gravity 1.013 (1.010-1.030); Urine Squamous Epithelial Cell Present (Absent); Urine Urobilinogen Negative (Negative); Urine White Blood Cell 3+(>20/hpf) (Absent)
[2018-02-01] MEDS ORDERED: Insulin IVPB 100 units/100 ml 100 UNITS/100 ML UNIT IVPB SCH ×3 (18:15→21:00)
[2018-02-01] MEDS: D5NS 0.9% 1000 ML BAG* 1,000 ML IV SCH ×2 (18:16→21:57)
[2018-02-01] MEDS: KCL 20 MEQ/100 ML IVPREMIX* 20 MEQ/100 ML BAG IV SCH ×2 (18:38→21:36)
[2018-02-01] MEDS: Metoprolol Tartrate IV* 1 MG/ML 5 ML VIAL IV SCH (20:02)
[2018-02-01] MEDS: HYDROmorphone INJ1* 1 MG/ML SYRINGE IV SLOW PU PRN (20:19)
[2018-02-01 20:35] LABS: BUN/Creatinine Ratio 20.1 (8-20); EGFR African American 37.6 (>60); EGFR Non-African American 31.1 (>60); Potassium 4.1 mmol/L (3.5-5.0)
[2018-02-01] MEDS ORDERED: cefTRIAXone(*) 1 GM in NS 0.9% 50 ML* 50 ML IVPB SCH (21:00)
[2018-02-01 21:14] LABS: HDL Cholesterol 30.2 mg/dL
[2018-02-01] MEDS ORDERED: Piperacillin/Tazobac ADVAN(*) 3.375 GM in NS 0.9% 100 ML* 100 ML IVPB ONE (22:45)
[2018-02-01] MEDS ORDERED: Zosyn per Pharmacy* NOTE FOLLOW UP SCH (23:00)
[2018-02-02 00:14] LABS: BUN/Creatinine Ratio 20.4 (8-20); EGFR African American 42.4 (>60); Potassium 4.4 mmol/L (3.5-5.0)
[2018-02-02] MEDS: D5NS 0.9% 1000 ML BAG* 1,000 ML IV SCH ×3 (00:30→14:54)
[2018-02-02] MEDS: HYDROmorphone INJ1* 1 MG/ML SYRINGE IV SLOW PU PRN ×5 (00:32→18:01)
[2018-02-02] MEDS: Ondansetron INJ* 2 MG/ML VIAL IV PRN ×4 (00:32→22:19)
[2018-02-02] MEDS ORDERED: Dextrose 50% Syringe 50 ML* 25 GM/50 ML SYRINGE IV PUSH PRN (01:29)
[2018-02-02] MEDS: Metoprolol Tartrate IV* 1 MG/ML 5 ML VIAL IV SCH ×4 (01:47→21:44)
[2018-02-02] MEDS ORDERED: Insulin LISPRO* 1 UNITS UNIT SUBCUT SCH (02:00)
[2018-02-02] MEDS ORDERED: ZOSYN 3.375 GM Q8H per EXTENDED INFUSION IVPB SCH ×2 (03:30)
[2018-02-02 04:51] LABS: ABS Basophils 0.1 10^3/ul (0-0.2); ABS Eosinophils 0.2 10^3/ul (0-0.6); ABS Lymphocytes 1.6 10^3/ul (1.0-4.8); ABS Monocytes 0.5 10^3/ul (0-0.8); ABS Neutrophils 8.9 10^3/ul (1.5-7.7); ABS Nucleated RBC 0 10^3/ul; Hematocrit 40 % (35-47); Hemoglobin 12.9 g/dl (12.0-16.0); Lymphocyte % 13.8 %; Mean Corpuscular HGB Conc 32 g/dl (31-36); Mean Corpuscular Hemoglobin 27 pg (27-31); Mean Corpuscular Volume 83 fL (80-97); Mean Platelet Volume 7.6 fL (7.4-10.4); Nucleated Red Blood Cells % 0; Platelet Count 316 10^3/ul (150-450); Red Blood Count 4.84 10^6/ul (4.00-5.40); Red Cell Distribution Width 15 % (10.5-15); White Blood Count 11.3 10^3/ul (3.5-10.8)
[2018-02-02] MEDS: Heparin VIAL(*) 5000 UNITS/ML VIAL (FIVE THOUSAND) SUBCUT SCH ×3 (05:03→21:46)
[2018-02-02 05:13] LABS: BUN/Creatinine Ratio 18.5 (8-20); Calcium 9.2 mg/dL (8.6-10.3); EGFR African American 46.1 (>60); EGFR Non-African American 38.1 (>60); Magnesium 1.6 mg/dL (1.9-2.7); Potassium 3.8 mmol/L (3.5-5.0)
[2018-02-02] MEDS: Insulin LISPRO* 1 UNITS UNIT SUBCUT SCH ×5 (05:58→21:47)
--- NOTE | 2018-02-02 08:15 | HP ---
CC: [facility] * HISTORY AND PHYSICAL: DATE OF ADMISSION: 02/01/18 PROVIDER: Kwame Horton NP PRIMARY CARE PROVIDER: [facility]. ATTENDING PHYSICIAN WHILE IN THE HOSPITAL: Dr. Karly Ramirez * (dictated by Kwame Horton NP). CHIEF COMPLAINT: 1. Abdominal pain. 2. Diarrhea. HISTORY OF PRESENT ILLNESS: Ms. Weber is a 47-year-old female with past medical history significant for diabetes, hypertension, nephrolithiasis with sepsis, depression, anxiety, chronic renal failure and history of pancreatitis x5, who presented to the emergency room with the complaints of abdominal pain and diarrhea. The patient reports that approximately 1 week ago, she started having abdominal pain that has progressively gotten worse throughout the week and today about 2 a.m. this morning, it became severe. The patient also reports that she has had diarrhea for the past week and also elevated blood sugars. Due to the severe abdominal pain and elevated blood sugars and diarrhea , the patient presented to the emergency room for further evaluation. She also reports dark and foul smelling urine as well as generalized weakness. The patient denies any fever or unintended weight loss. Denies chest pain or edema. Denies cough, hemoptysis or shortness of breath. She does report nausea, diarrhea and abdominal pain in the upper abdomen. Denies any gross hematuria, dysuria. Does report dark and foul smelling urine. Denies any focal weakness, sensory loss, visual complaints, dysphagia, arthralgias, myalgias, rashes or lesions, psychosis or anxiety. While in the emergency room, the patient had routine lab work drawn. She was found to have a blood sugar of 431 and an anion gap of 13 with elevated BUN and creatinine of above baseline of 47 and 2.29, potassium of 5.2 and a lipase of 4, 985. Due to the concern of her severe abdominal pain and findings of acute pancreatitis, we were asked to see and evaluate the patient for admission. PAST MEDICAL HISTORY: Significant for, 1. Diabetes. 2. Hypertension. 3. Left nephrolithiasis with sepsis. 4. Depression. 5. Anxiety. 6. Chronic renal failure, stage 3 to stage 4. 7. History of pancreatitis. PAST SURGICAL HISTORY: 1. Appendectomy. 2. . 3. Hysterectomy. 4. Cholecystectomy. HOME MEDICATIONS: Include, 1. Lisinopril 40 mg p.o. daily. 2. Metoprolol 50 mg p.o. daily. 3. Pepcid 20 mg p.o. daily. 4. Metformin 1000 mg p.o. b.i.d. 5. Elavil 300 mg p.o. at bedtime. 6. The patient reports that she used to take Lantus 30 units subcu, but has not taken this medication over 3 months because she has been unable to afford it due to the loss of her insurance. FAMILY HISTORY: Mother with a history of hypertension, stroke and history of diabetes and sister with a history of breast cancer. SOCIAL HISTORY: The patient reports she smokes a pack a day for 20 plus years. She denies any alcohol or illicit drug use. She is . She lives with her . Surrogate decision maker in the event she is unable to make her own decisions is her . She is a full code. REVIEW OF SYSTEMS: There was no documented fever. She does report decreased appetite, nausea, diarrhea, severe upper abdominal pain and left flank pain. She also reports foul smelling urine that is dark. She denies any hematuria or dysuria. Denies any focal weakness or sensory loss. Denies any visual complaints. Denies any difficulty swallowing. Denies any arthralgias or myalgias, rashes, lesions, psychosis, or anxiety. PHYSICAL EXAMINATION GENERAL: At this time, Ms. Weber is a 47-year-old female. She appears mildly uncomfortable, resting on a stretcher in the emergency room. Her color is pink. She is alert and oriented x3. VITAL SIGNS: Heart rate was 104, respirations 17, O2 saturation 95% on room air , blood pressure 164/103, temperature was 96.8. HEENT: Head is atraumatic, normocephalic. Eyes: EOMs are intact. Sclerae anicteric and not pale. Oral mucosa appeared to be moist. NECK: Supple. LUNGS: Clear to auscultation bilaterally. No wheezes, rales, or rhonchi. CARDIAC: S1, S2. Regular rate and rhythm. No murmurs, rubs, or gallops. ABDOMEN: Soft. Bowel sounds are present x4. Abdomen with diffuse tenderness noted over the left upper abdomen, mid epigastric and she also has left CVA tenderness with palpation. EXTREMITIES: Pulses are +2 bilaterally. She is able to move all 4 extremities with 5/5 strength. NEUROLOGIC: She is awake, alert, oriented x3. Speech is clear. Though process intact. No gross focal deficits. SKIN: Intact. LABORATORY DATA AND DIAGNOSTIC STUDIES: WBCs are 20.4, RBCs 4.83, hemoglobin 13.1, hematocrit of 40, platelet count of 422, absolute neutrophils are 17.2. ABG with pH of 7.25, pCO2 of 37, pO2 of 78, HCO3 was 16.7, ABG O2 was 96.1. Sodium 130, potassium 5.2, chloride 102, carbon dioxide was 15, anion gap was 13 , BUN was 47, creatinine 2.29, glucose was 431, lactic acid was 2.0, calcium of 11.2, total bilirubin was 0.30, ASTs were 12, ALTs were 16, alkaline phosphatase was 114. Lipase was 4,985. Urine was yellow, cloudy; pH of 5.0, specific gravity 1.013. Urine protein was 1+, urine ketones, blood, nitrites, bilirubin, urobilinogen were all negative. Urine leukocyte esterase was 2+, wbc's were 3+, rbc's were trace. Squamous epithelials cells were present. Bacteria was 3+. Hyaline casts were present. Glucose was 1+. Patient had an ultrasound of the abdomen. Radiologist's impression: There was fluid along the pancreatic head suggestive of acute pancreatitis in the correct clinical setting. Hepatomegaly with fatty infiltration of the liver. Ectasia of the common bile duct up to 1 cm. Left nephrolithiasis without hydronephrosis. She had an electrocardiogram, which showed sinus tachycardia at a rate of 106. ASSESSMENT AND PLAN: Ms. Weber is a 47-year-old female who presented to the emergency room with complaints of diffuse abdominal pain, nausea, diarrhea x1 week, who was found to have acute pancreatitis with an elevated lipase of 4, 985. We were asked to see and admit the patient to the hospital due to her severe abdominal pain and elevated lipase. She will be admitted inpatient in the ICU for, 1. Abdominal pain. I suspect this is most likely related to acute pancreatitis. She does have an ultrasound of the abdomen, which showed fluid along the pancreatic head consistent with acute pancreatitis. At this time, the patient will be placed on IV fluids for hydration. She will be given pain meds as needed for pain. She is n.p.o. I will start her on a Proton pump inhibitor daily. The patient also does have 3+ bacteria in her urine, which she reports as foul smelling and dark. I will give her Zosyn 3.375 g. I suspect her leukocytosis is probably related to acute pancreatitis with underlying UTI. I also have consulted GI, who will follow up the patient and has recommended an MRCP. The MRCP was ordered. The patient does meet SIRS criteria with an elevated white count, tachycardia and tachypnea. The patient did receive sepsis bolusing at 30 mL/kg and she has received IV antibiotics. She also has blood cultures that are pending as well as a urine culture that is currently pending. 2. Hyperglycemia. The patient is in DKA. Patient was given normal saline bolus. We will start her on an insulin drip, as she does have a positive anion gap. We will continue with intravenous hydration with normal saline or D5 normal saline and insulin drip to close her gap. We will monitor Accu-Cheks hourly and treat as needed. We will repeat a BMP q.4 hours and monitor her electrolytes. 3. Hypertension. I am going to hold her lisinopril at this time. I will get her metoprolol 5 mg intravenous q.6 hours as the patient is n.p.o. due to acute pancreatitis, nausea and dry heaving. She will also have p.r.n. hydralazine 10 mg q.6 hours for systolic blood pressure greater than 180. 4. Acute on chronic renal failure, stage 4. Patient has chronic renal failure. Her BUN and creatinine are elevated above baseline. I suspect this is due to dehydration. We will continue with IV hydration for her and repeat BMP in the a.m. I have also ordered an ultrasound of the kidneys to rule out hydronephrosis, as the patient does have a history of nephrolithiasis. She did have a UA that is concerning of urinary tract infection. I will treat her with Zosyn and avoid nephrotoxic medications. 5. Fluid, electrolytes, and nutrition. I will place her on n.p.o. status for now. As her condition improves, we will advance her diet to clear liquids. 6. Code status. She is a full code. 7. Deep vein thrombosis. I will place her on heparin subcu. 8. Disposition. The patient will be placed in ICU on an insulin drip for close monitoring. TIME SPENT: Time spent on this admission was approximately 90 minutes, greater than half that time was spent with the patient, obtaining my history and physical. The other half of the time was spent going over the plan of care and implementing my plan of care. I have discussed this with my attending, Dr. Karly Ramirez. She is in agreement with my plan. KWAME HORTON, SKIN FITTER [id number]/CPS #: [id number] MTDD
[2018-02-02] MEDS ORDERED: Magnesium Sulfate 2 GM IV* 2 GM/50 ML BAG IVPB ONE (08:35)
--- NOTE | 2018-02-02 08:58 | PN ---
Subjective Date of Service: 02/02/18 Interval History: Patient complains of severe LUQ pain, radiates to back. No vomiting. Has recurrent pancreatitis, unknown cause. Diabetes generally controlled w/ metformin. Diagnosed a few years ago. Family History: Unchanged from Admission Social History: Unchanged from Admission Past Medical History: Unchanged from Admission Objective Active Medications: Albuterol (Ventolin 2.5 Mg/3 Ml Neb.Ashley*) 2.5 mg INH RT.[id number] AWAKE PRN PRN Reason: sob/wheezing Dextrose (D50w Syringe 50 Ml*) 12.5 gm IV PUSH .FOR FS < 60 - SS PRN PRN Reason: FS < 60 Heparin Sodium (Porcine) (Heparin Vial(*)) 5,000 units SUBCUT Q8HR [facility] Last Admin: 02/02/18 05:03 Dose: 5,000 units Hydralazine HCl (Apresoline Iv*) 10 mg IV SLOW PU Q6H PRN PRN Reason: Systolic Bp Greater Than:180 Last Admin: 02/01/18 15:12 Dose: 10 mg Hydromorphone HCl (Dilaudid Inj1s*) 2 mg IV SLOW PU Q4H PRN PRN Reason: PAIN Last Admin: 02/02/18 05:03 Dose: 2 mg Piperacillin Sod/Tazobactam (Sod 3.375 gm/ Sodium Chloride) 100 mls @ 25 mls/ hr IVPB Q8H [facility] Last Admin: 02/02/18 03:51 Dose: 25 mls/hr Dextrose/Sodium Chloride (D5ns 0.9% 1000 Ml Bag*) 1,000 mls @ 125 mls/hr IV PER RATE [facility] Last Admin: 02/02/18 05:18 Dose: 125 mls/hr Insulin Human Lispro (Humalog*) 0 units SUBCUT Q4HR [facility]; Protocol Last Admin: 02/02/18 05:58 Dose: Not Given Metoprolol Tartrate (Lopressor Iv*) 5 mg IV Q6H [facility] Last Admin: 02/02/18 08:04 Dose: 5 mg Ondansetron HCl (Zofran Inj*) 4 mg IV Q4H PRN PRN Reason: NAUSEA/VOMITING Last Admin: 02/02/18 00:32 Dose: 4 mg Pantoprazole Sodium (Protonix Iv*) 40 mg IV Q24H [facility] Last Admin: 02/01/18 15:11 Dose: 40 mg Vital Signs - 8 hr 02/02/18 02/02/18 02/02/18 05:31 05:54 05:55 Temperature 37.1 C Pulse Rate 100 Respiratory 14 12 Rate Blood Pressure 117/79 (mmHg) O2 Sat by Pulse 94 Oximetry 02/02/18 02/02/18 02/02/18 06:00 06:01 06:31 Temperature Pulse Rate 101 99 102 Respiratory 21 19 22 Rate Blood Pressure 104/73 113/79 (mmHg) O2 Sat by Pulse 96 96 96 Oximetry 02/02/18 02/02/18 07:00 07:19 Temperature 36.8 C Pulse Rate 109 Respiratory 15 Rate Blood Pressure (mmHg) O2 Sat by Pulse 92 Oximetry Oxygen Devices in Use Now: None Appearance: alert, no distress Eyes: No Scleral Icterus Ears/Nose/Mouth/Throat: Clear Oropharnyx Neck: No Thyroid Enlargement, Masses Respiratory: Clear to Auscultation Cardiovascular: NL Sounds; No Murmurs; No JVD Abdominal: No Hepatosplenomegaly, - - tender LUQ, +BS Lymphatic: No Cervical Adenopathy Extremities: No Edema Neurological: Alert and Oriented x 3 Lines/Tubes/Other Access: Clean, Dry and Intact Peripheral IV Nutrition: - Result Diagrams: 02/02/18 04:38 02/02/18 04:38 Microbiology and Other Data: Microbiology 02/01/18 15:18 Nasal Screen MRSA (PCR) - Final Nasal Mrsa Not Detected Assess/Plan/Problems-Billing Assessment: 47 year old woman w/ recurrent pancreatitis, Type 2 diabetes, present with pancreatitis and DKA - Patient Problems (1) DKA, type 2 Current Visit: Yes Status: Acute Priority: High Code(s): E11.10 - TYPE 2 DIABETES MELLITUS WITH KETOACIDOSIS WITHOUT COMA SNOMED Code(s): 257295489 Comment: - Hyperglycemia resolved, still has mild anion gap. - Will continue D5 infusion, manage sugars w/ sliding scale humalog - check UA for ketones, repeat BMP in AM (2) Pancreatitis Current Visit: No Status: Acute Priority: High Onset Date: 01/18/14 Code (s): K85.9 - ACUTE PANCREATITIS, UNSPECIFIED * DO NOT USE * SNOMED Code(s): 08910852 Comment: - unclear etiology, triglycerides high but not >500 - bile duct stones a concern, MRCP is pending - will keep NPO, manage pain w/ IV dilaudid - no sign infection, stopped Zosyn (3) Acute renal failure Current Visit: No Status: Acute Priority: Medium Comment: - Creatinine has improved, near her baseline - Known kidney disease, will check 24h urine creatinine clearance - Requested records for etiology of atrophic kidney Status and Disposition: required continued hospital stay due to pancreatitis, could be transferred to floor later in day
--- NOTE | 2018-02-02 09:03 | PN ---
Hospitalist Progress Note Date of Service: 02/02/18 called reg pt's f/s. she has dm type ii and has not getting her lantus ( unable to afford ) came in with hyperglycemia anion gap acidosis ---> pt was started with insulin drip but her ag closed last night ---> insulin drip was turned off at 1 am but continued d5ns due to concern potential hypoglycemia related to insulin drip despite its discontinuation estimate half life will be out around 6 am and will start insulin ss ( low ) and her d5ns may be switched to ns while monitering her f/s she is still npo due to concurrent pancreatitis. her f/s at 2 am was in 80s staff would rather check her f/s at 230 am instead of pushing d50 ( she is npo ) repeat f/s scheduled at 4 am went down to 62 ---> THIS CERAMIC PLATER WAS NOT CALLED REG THAT AT ALL---> not sure peripheral bmp was sent to compare or any d50 was given ---> NEXT F/S CAME BACK AT 6 AM ( pt supposed to be on q1 hr until 6 am ) was 130s ---> asked nursing staff to ask day dr whether d5ns can be changed to ns with insulin ss ( low ) with f/s argelia
[2018-02-02 09:58] LABS: BUN/Creatinine Ratio 15.7 (8-20); Calcium 7.5 mg/dL (8.6-10.3); EGFR African American 57.2 (>60); EGFR Non-African American 47.3 (>60); Potassium 3.5 mmol/L (3.5-5.0)
[2018-02-02 10:56] LABS: Urine Appearance Cloudy; Urine Bacteria Absent (Absent); Urine Bilirubin Negative (Negative); Urine Blood 1+ (Negative); Urine Color Yellow; Urine Glucose Negative (Negative); Urine Ketones Negative (Negative); Urine Nitrite Negative (Negative); Urine Protein Negative (Negative); Urine Red Blood Cell 1+(3-5/hpf) (Absent); Urine Specific Gravity 1.014 (1.010-1.030); Urine Squamous Epithelial Cell Present (Absent); Urine Urobilinogen Negative (Negative); Urine White Blood Cell 3+(>20/hpf) (Absent)
[2018-02-02] MEDS: Insulin IVPB 100 units/100 ml 100 UNITS/100 ML UNIT IVPB SCH (11:12)
[2018-02-02] MEDS: Pantoprazole IV* 40 MG IV SCH (14:54)
--- NOTE | 2018-02-02 17:40 | CONS ---
CC: Bonnie Horton NP * CONSULTATION REPORT: DATE OF CONSULT: 02/02/18 REQUESTING PROVIDER: Bonnie Horton NP REASON FOR CONSULT: Recurrent pancreatitis. HISTORY OF PRESENT ILLNESS: This is a 47-year-old female with past medical history of diabetes, hypertension, depression, anxiety, chronic renal failure and recurrent pancreatitis, who was admitted with abdominal pain, nausea, vomiting and found to have another episode of pancreatitis. Our group had previously seen the patient in consultation on the previous hospitalization. At the end of the hospitalization, she did feel back to her baseline; however, over the last 3 to 4 days, she has reported increasing epigastric pain in a band -like fashion with radiation to her back up to 10/10 pain associated with nausea and vomiting. She did have episodes of dry heaving as well and she presented to the emergency room where she was found to be in DKA and an episode of recurrent pancreatitis. She did meet SIRS criteria secondary to tachycardia , tachypnea, and WBC count. She denies any black or blood in her stool. She did have 1 episode of darker emesis this morning, although it was coffee-ground in nature, but no further episodes. She states that the pain is better today after hydration. The pain was prior to this 10/10, today it is around 4-5/10, but she does break through her pain medication at times. She states that she has not been able to take her insulin at home secondary to a loss in health insurance. She states that she is now reapplying for insurance and will have coverage beginning on 02/09/18. The previous recommendation from the prior consultation recommended outpatient endoscopic ultrasound to help determine etiology of her chronic pancreatitis. She does not use alcohol. She had a cholecystectomy many years ago. Triglycerides were slightly elevated, but not over 1000 to the threshold that we would expect for pancreatitis etiology. She denies any hematuria, dysuria, dysphagia, odynophagia, skin rashes or lesions, hemoptysis, dyspnea or chest pains. She does admit to some diarrhea that has been ongoing for the last couple of years. The remainder of the 14-point review of systems is grossly negative. PAST MEDICAL HISTORY: Diabetes, hypertension, pancreatitis, nephrolithiasis, depression, anxiety, chronic renal failure. PAST SURGICAL HISTORY: Appendectomy, , hysterectomy, cholecystectomy, and stent placement. HOME MEDICATIONS: Include: 1. Lisinopril. 2. Metoprolol. 3. Pepcid. 4. Metformin. 5. Elavil. 6. She was to be taking Lantus, but had not been able to afford the medication due to loss of her insurance. FAMILY HISTORY: Uncle with alcoholic liver disease. No other GI or liver cancers. No inflammatory bowel disease. SOCIAL HISTORY: Does not consume any alcohol. She does not use any drugs. She smokes a pack of cigarettes a day for the past 20 years. REVIEW OF SYSTEMS: The remainder of the 14-point review of systems was grossly negative. PHYSICAL EXAM: Vital Signs: Blood pressure is 97/81, pulse is 103, respiratory rate is 17, she is 97% on room air, temperature is 99.9, T-max is 99.9. In general, alert and oriented, in no acute distress. HEENT: Atraumatic , normocephalic. Pupils are equal, round, reactive to light. Extraocular movements are intact. Conjunctivae are pink. Sclerae are anicteric. Cardiovascular: Regular rate and rhythm. S1, S2. Respiratory: Clear to auscultation bilaterally. Abdomen: Soft. Tenderness to palpation in the epigastric, left upper quadrant, right upper quadrant diffusely. No guarding or rebound is appreciated. Bowel sounds are positive. Extremities: No clubbing, no cyanosis, no edema. Skin is without rashes or lesions. Neuro exam is nonfocal. DIAGNOSTIC STUDIES/LAB DATA: WBC count on admission was 20.4 down to 11.3 today. Creatinine is 1.21, chloride is 114, CO2 is 17, calcium is 7.5, magnesium 1.6. Total bilirubin is 0.3. Lipase on admission was 4985, today it is 1467. AST is 12, ALT is 16, and alkaline phosphatase is 114. She had an abdominal ultrasound on 02/01/18 that revealed fluid along the pancreatic head suggestive of acute pancreatitis, hepatomegaly with fatty infiltration, CBD dilation of 1 cm, and left nephrolithiasis without hydronephrosis. ASSESSMENT AND PLAN: This is a 47-year-old female with recurrent pancreatitis. 1. Acute pancreatitis with reoccurrence. At the conclusion of the prior hospitalization, it was determined that the patient would likely need an endoscopic ultrasound to fully assess the etiology of her pancreatitis. She does not consume alcohol; in addition she is post cholecystectomy without any clear evidence of residual choledocholithiasis. There was potential thought that she had an MRCP on the prior hospitalization at [facility]. I reviewed these records. There was no record of an MRCP being completed. I would recommend that we get an MRI with MRCP here to evaluate her biliary system and pancreatic system in a better fashion. In addition, she is on 2 medications that are class 3 offenders for pancreatitis. These include metformin and lisinopril. She has been on these for multiple years, which does fit a temporary relationship to her episodes of pancreatitis. We would recommend finding alternatives to these medications if possible. Finally, she should have an outpatient endoscopic ultrasound for definitive evaluation of her biliary system and to assess for the etiology of these episodes of pancreatitis. She should follow up in the office with us shortly after February and then we will refer her to either [place] or [place] for endoscopic ultrasound testing. 2. One episode of coffee-ground emesis. Hemoglobin is stable. No further episodes. Continue to monitor. She had an upper endoscopy on prior admission that was grossly unremarkable. If ongoing concern, we would recommend repeat upper endoscopy given nausea, vomiting, retching and concern for possible Najma-Morales. 3. Obesity. The patient is counseled. 4. Diabetic ketoacidosis with acidosis, anion gap now closed per primary care team. [id number]/[facility] #: [id number] JELENA
[2018-02-02] MEDS: cefTRIAXone(*) 1 GM in NS 0.9% 50 ML* 50 ML IVPB SCH (22:19)
[2018-02-02] MEDS ORDERED: PROCHLORPERAZINE INJ 5 MG/ML 2 ML VIAL ONE (23:39)
[2018-02-02] MEDS ORDERED: PROCHLORPERAZINE INJ 5 MG/ML 2 ML VIAL IV ONE (23:40)
[2018-02-03] MEDS: D5NS 0.9% 1000 ML BAG* 1,000 ML IV SCH ×3 (02:22→22:42)
[2018-02-03] MEDS: Metoprolol Tartrate IV* 1 MG/ML 5 ML VIAL IV SCH ×4 (02:25→20:26)
[2018-02-03] MEDS: Insulin LISPRO* 1 UNITS UNIT SUBCUT SCH ×6 (02:25→20:48)
[2018-02-03] MEDS: HYDROmorphone INJ1* 1 MG/ML SYRINGE IV SLOW PU PRN ×7 (02:26→23:33)
[2018-02-03] MEDS: Ondansetron INJ* 2 MG/ML VIAL IV PRN ×3 (02:26→20:27)
[2018-02-03] MEDS: Heparin VIAL(*) 5000 UNITS/ML VIAL (FIVE THOUSAND) SUBCUT SCH ×3 (05:26→20:27)
[2018-02-03 06:46] LABS: ABS Basophils 0.1 10^3/ul (0-0.2); ABS Eosinophils 0.2 10^3/ul (0-0.6); ABS Lymphocytes 1.3 10^3/ul (1.0-4.8); ABS Monocytes 0.6 10^3/ul (0-0.8); ABS Nucleated RBC 0 10^3/ul; Eosinophil % 2.6 %; Hematocrit 35 % (35-47); Hemoglobin 11.1 g/dl (12.0-16.0); Lymphocyte % 15.9 %; Mean Corpuscular HGB Conc 32 g/dl (31-36); Mean Corpuscular Hemoglobin 27 pg (27-31); Mean Corpuscular Volume 84 fL (80-97); Mean Platelet Volume 7.8 fL (7.4-10.4); Nucleated Red Blood Cells % 0; Platelet Count 237 10^3/ul (150-450); Red Blood Count 4.12 10^6/ul (4.00-5.40); Red Cell Distribution Width 15 % (10.5-15); White Blood Count 8.2 10^3/ul (3.5-10.8)
[2018-02-03 07:10] LABS: Albumin 3.2 g/dL (3.2-5.2); Albumin/Globulin Ratio 1.2 (1-3); BUN/Creatinine Ratio 10.2 (8-20); Calcium 8.5 mg/dL (8.6-10.3); EGFR African American 53.6 (>60); EGFR Non-African American 44.3 (>60); Globulin 2.7 g/dL (2-4); Magnesium 1.7 mg/dL (1.9-2.7); Potassium 3.6 mmol/L (3.5-5.0); Total Bilirubin 0.2 mg/dL (0.2-1.0); Total Protein 5.9 g/dL (6.4-8.9)
--- NOTE | 2018-02-03 11:45 | PN ---
Subjective Date of Service: 02/03/18 Interval History: Patient states this is the worst episode of pancreatitis she ever had, pain today is still sever, only brief relief with IV hydromorphone. Not hungry. Family History: Unchanged from Admission Social History: Unchanged from Admission Past Medical History: Unchanged from Admission Objective Active Medications: Albuterol (Ventolin 2.5 Mg/3 Ml Neb.Ashley*) 2.5 mg INH [id number] AWAKE PRN PRN Reason: sob/wheezing Alprazolam (Xanax Tab*) 0.5 mg PO Q6H PRN PRN Reason: ANXIETY Dextrose (D50w Syringe 50 Ml*) 12.5 gm IV PUSH .FOR FS < 60 - SS PRN PRN Reason: FS < 60 Heparin Sodium (Porcine) (Heparin Vial(*)) 5,000 units SUBCUT Q8HR [facility] Last Admin: 02/03/18 05:26 Dose: 5,000 units Hydromorphone HCl (Dilaudid Inj1s*) 2 mg IV SLOW PU Q4H PRN PRN Reason: PAIN Last Admin: 02/03/18 10:30 Dose: 2 mg Dextrose/Sodium Chloride (D5ns 0.9% 1000 Ml Bag*) 1,000 mls @ 125 mls/hr IV PER RATE [facility] Last Admin: 02/03/18 02:22 Dose: 125 mls/hr Ceftriaxone Sodium 1 gm/ (Sodium Chloride) 50 mls @ 200 mls/hr IVPB Q24H [facility] Last Admin: 02/02/18 22:19 Dose: 200 mls/hr Insulin Human Lispro (Humalog*) 0 units SUBCUT Q4HR [facility]; Protocol Last Admin: 02/03/18 10:34 Dose: 1 units Metoprolol Tartrate (Lopressor Iv*) 5 mg IV Q6H [facility] Last Admin: 02/03/18 08:12 Dose: 5 mg Ondansetron HCl (Zofran Inj*) 4 mg IV Q4H PRN PRN Reason: NAUSEA/VOMITING Last Admin: 02/03/18 06:21 Dose: 4 mg Pantoprazole Sodium (Protonix Iv*) 40 mg IV Q24H [facility] Last Admin: 02/02/18 14:54 Dose: 40 mg Vital Signs - 8 hr 02/03/18 02/03/18 02/03/18 03:42 04:26 06:21 Temperature 97.9 F Pulse Rate 99 Respiratory 16 18 18 Rate Blood Pressure 105/69 (mmHg) O2 Sat by Pulse 99 Oximetry 02/03/18 02/03/18 02/03/18 07:15 08:00 10:30 Temperature 99.0 F Pulse Rate 111 Respiratory 16 16 16 Rate Blood Pressure 102/67 (mmHg) O2 Sat by Pulse 98 Oximetry Oxygen Devices in Use Now: None Appearance: Alert, sitting up in bed. Anxious about having MRI soon, states she is having pain also. Eyes: No Scleral Icterus Neck: NL Appearance and Movements; NL JVP, No Thyroid Enlargement, Masses Respiratory: Symmetrical Chest Expansion and Respiratory Effort, Clear to Auscultation, Clear to Percussion Cardiovascular: NL Sounds; No Murmurs; No JVD, RRR, No Edema, - Abdominal: NL Sounds; No Tenderness; No Distention, No Hepatosplenomegaly, - - mild tenderness Extremities: No Edema, No Clubbing, Cyanosis, - Skin: No Rash or Ulcers, No Nodules or Sclerosis, - Neurological: Alert and Oriented x 3, NL Sensation Result Diagrams: 02/03/18 06:22 02/03/18 06:22 Microbiology and Other Data: Microbiology 02/01/18 15:18 Nasal Screen MRSA (PCR) - Final Nasal Mrsa Not Detected Assess/Plan/Problems-Billing Assessment: 47 year old woman w/ recurrent pancreatitis, Type 2 diabetes, present with pancreatitis and DKA - Patient Problems (1) Pancreatitis Current Visit: No Status: Acute Priority: High Onset Date: 01/18/14 Code (s): K85.9 - ACUTE PANCREATITIS, UNSPECIFIED * DO NOT USE * SNOMED Code(s): 55999667 Comment: - unclear etiology, triglycerides high but not >500 - bile duct stones a concern, MRCP is pending Clear liquids start 02/03. Would not advance diet until her pain is controlled with po analgesics only. Pt advised to never use metformin or lisinopril again, either one could be a cause of pancreatitis. (2) DKA, type 2 Current Visit: Yes Status: Acute Priority: High Code(s): E11.10 - TYPE 2 DIABETES MELLITUS WITH KETOACIDOSIS WITHOUT COMA SNOMED Code(s): 578573950 Comment: Resolved. Requires only very small doses of Lispro. When taking more food consider glipizide 2.5 mg daily. She states in the past glipizide made her glucose too low. (3) CKD (chronic kidney disease) stage 3, GFR 30-59 ml/min Current Visit: Yes Status: Acute Code(s): N18.3 - CHRONIC KIDNEY DISEASE, STAGE 3 (MODERATE) SNOMED Code(s): 337280138 Comment: Est GFR 44.3 02/03/18. Stable. (4) Smoker Current Visit: No Status: Chronic Priority: Medium Code(s): F17.200 - NICOTINE DEPENDENCE, UNSPECIFIED, UNCOMPLICATED SNOMED Code(s): 03222396 Comment: Pt advised to quit smoking and avoid second hand smoke. She refuses NRT, wants to quit. (5) HTN (hypertension) Current Visit: No Status: Acute Code(s): I10 - ESSENTIAL (PRIMARY) HYPERTENSION SNOMED Code(s): 97963584 Comment: Lisinopril listed as adverse reaction. May or may not need BP meds on discharge. Status and Disposition: required continued hospital stay due to pancreatitis, could be transferred to floor later in day
[2018-02-03] MEDS: ALPRAZolam TAB* 0.5 MG PO PRN (12:04)
[2018-02-03] MEDS: Pantoprazole IV* 40 MG IV SCH (14:05)
[2018-02-03 14:53] LABS: UR Microalbumin (mg/L) < 15.0; Urine Creatinine Concentration 61.37 mg/dL
[2018-02-03] MEDS: cefTRIAXone(*) 1 GM in NS 0.9% 50 ML* 50 ML IVPB SCH (20:49)
[2018-02-04] MEDS: ALPRAZolam TAB* 0.5 MG PO PRN ×2 (01:10→07:19)
[2018-02-04] MEDS: Ondansetron INJ* 2 MG/ML VIAL IV PRN ×2 (01:10→07:19)
[2018-02-04] MEDS: Metoprolol Tartrate IV* 1 MG/ML 5 ML VIAL IV SCH ×4 (01:10→19:36)
[2018-02-04] MEDS: Insulin LISPRO* 1 UNITS UNIT SUBCUT SCH ×6 (01:19→21:34)
[2018-02-04] MEDS: HYDROmorphone INJ1* 1 MG/ML SYRINGE IV SLOW PU PRN ×7 (02:55→23:32)
[2018-02-04] MEDS: Heparin VIAL(*) 5000 UNITS/ML VIAL (FIVE THOUSAND) SUBCUT SCH ×3 (05:33→21:34)
[2018-02-04] MEDS ORDERED: NS 0.9% 1000 ML* 1,000 ML IV SCH (09:15)
[2018-02-04] MEDS: NS 0.9% 1000 ML* 1,000 ML IV SCH ×3 (09:17→20:57)
[2018-02-04] MEDS ORDERED: PROCHLORPERAZINE INJ 5 MG/ML 2 ML VIAL IV PRN (09:57)
[2018-02-04] MEDS ORDERED: Acetaminophen TAB* 325 MG PO SCH (10:00)
[2018-02-04] MEDS ORDERED: NS 0.9% 500 ML* 500 ML IV ONE (11:56)
[2018-02-04] MEDS ORDERED: Ketorolac INJ* 30 MG/ML 1 ML VIAL ONE (11:59)
[2018-02-04] MEDS: Pantoprazole IV* 40 MG IV SCH (12:09)
[2018-02-04] MEDS: Ketorolac INJ* 30 MG/ML 1 ML VIAL IV PUSH SCH ×2 (12:09→21:32)
[2018-02-04] MEDS: Gemfibrozil TAB* 600 MG PO SCH ×2 (12:10→21:28)
--- NOTE | 2018-02-04 15:31 | PN ---
Subjective Date of Service: 02/04/18 Interval History: Pt seen and examined. Meds and labs reviewed. CC: Abd pain, N/V; mild hypotension later during the day ROS: Denied PEDRAZA/dizziness, F/C, CP, SOB, increased cough, sputum production, diarrhea, constipation, dysuria, myalgias, arthralgias, throat pain, and new skin lesions. The rest of the 14 point ROS are unremarkable. PHYSICAL EXAM: GEN APPEARANCE: Awake, not in acute distress HEENT: NC/AT, PERRLA, moist oral mucosa, (-) throat erythema NECK: Soft, supple, (-) cervical LAD, (-)JVD HEART: S1S2 WNL, RRR, No MRG CHEST: CTA, BL, GAE, No W/R/R ABD: Soft, ND/tender epigastric area, NABS 4x Q EXT: No C/C/E SKIN: Warm to touch PSYCH: No active psychosis, hallucinations, depression, SI/HI Family History: Unchanged from Admission Social History: Unchanged from Admission Past Medical History: Unchanged from Admission Objective Active Medications: Acetaminophen (Tylenol Tab*) 975 mg PO BID [facility] Albuterol (Ventolin 2.5 Mg/3 Ml Neb.Ashley*) 2.5 mg INH [id number] AWAKE PRN PRN Reason: sob/wheezing Alprazolam (Xanax Tab*) 0.5 mg PO Q6H PRN PRN Reason: ANXIETY Last Admin: 02/04/18 07:19 Dose: 0.5 mg Dextrose (D50w Syringe 50 Ml*) 12.5 gm IV PUSH .FOR FS < 60 - SS PRN PRN Reason: FS < 60 Gemfibrozil (Lopid Tab*) 600 mg PO BID [facility] Last Admin: 02/04/18 12:10 Dose: 600 mg Heparin Sodium (Porcine) (Heparin Vial(*)) 5,000 units SUBCUT Q8HR [facility] Last Admin: 02/04/18 12:08 Dose: 5,000 units Hydromorphone HCl (Dilaudid Inj1s*) 2 mg IV SLOW PU Q3H PRN PRN Reason: PAIN Last Admin: 02/04/18 14:29 Dose: 2 mg Ceftriaxone Sodium 1 gm/ (Sodium Chloride) 50 mls @ 200 mls/hr IVPB Q24H [facility] Last Admin: 02/03/18 20:49 Dose: 200 mls/hr Sodium Chloride (Ns 0.9% 1000 Ml*) 1,000 mls @ 200 mls/hr IV PER RATE [facility] Stop: 02/05/18 10:00 Last Admin: 02/04/18 15:11 Dose: 200 mls/hr Insulin Human Lispro (Humalog*) 0 units SUBCUT Q4HR [facility]; Protocol Last Admin: 02/04/18 14:28 Dose: 2 units Ketorolac Tromethamine (Toradol Inj*) 30 mg IV PUSH TID [facility] Stop: 02/06/18 13:59 Last Admin: 02/04/18 12:09 Dose: 30 mg Metoprolol Tartrate (Lopressor Iv*) 5 mg IV Q6H [facility] Last Admin: 02/04/18 12:13 Dose: Not Given Ondansetron HCl (Zofran Inj*) 4 mg IV Q4H PRN PRN Reason: NAUSEA/VOMITING Last Admin: 02/04/18 07:19 Dose: 4 mg Pantoprazole Sodium (Protonix Iv*) 40 mg IV Q24H [facility] Last Admin: 02/04/18 12:09 Dose: 40 mg Prochlorperazine Edisylate (Compazine Inj*) 10 mg IV Q6H PRN PRN Reason: NAUSEA/VOMITING Last Admin: 02/04/18 10:18 Dose: 10 mg Vital Signs - 8 hr 02/04/18 02/04/18 02/04/18 08:00 08:52 09:19 Temperature Pulse Rate Respiratory 18 18 20 Rate Blood Pressure (mmHg) O2 Sat by Pulse Oximetry 02/04/18 02/04/18 02/04/18 09:50 11:39 11:44 Temperature 98.4 F Pulse Rate 93 Respiratory 18 18 Rate Blood Pressure 86/51 98/60 (mmHg) O2 Sat by Pulse 97 Oximetry 02/04/18 02/04/18 02/04/18 14:00 14:29 15:11 Temperature 98.2 F Pulse Rate 95 Respiratory 18 20 Rate Blood Pressure 120/80 122/77 (mmHg) O2 Sat by Pulse 98 Oximetry Oxygen Devices in Use Now: None Result Diagrams: 02/03/18 06:22 02/03/18 06:22 Microbiology and Other Data: Microbiology 02/01/18 15:18 Nasal Screen MRSA (PCR) - Final Nasal Mrsa Not Detected Assess/Plan/Problems-Billing Assessment: 47 year old woman w/ recurrent pancreatitis, Type 2 diabetes, present with pancreatitis and DKA - Patient Problems (1) Acute pancreatitis Current Visit: Yes Status: Acute Code(s): K85.90 - ACUTE PANCREATITIS WITHOUT NECROSIS OR INFECTION, UNSP SNOMED Code(s): 997104200 Comment: -Likely multifactorial due to elevated TG close enough to 500 along with Lisinopril increasing likelihood of pancreatitis that likely lowers her threshold to have pancreatitis. In addition, Metformin in some instances can cause abd pain in absence of pancreatitis -Continue to hold Metformin and Lisinopril -Increase IVF to 200cc/hr until re-evaluated in AM---cut off at 10 AM until re- eval -Given TG >400 but <500, will start pt on Gemfibrozil since Fenofibrate also has a risk for acute pancreatitis -Place pt on Tylenol BID as ordered w/3.5g/day max -Continue Clears -MRCP: S/P cholecystectomy; no choledocholithiasis; mild peripancreatic edema -Given peripancreatic edema, will place pt on Ketorolac TID x 2 days -Re-check lipase levels in AM (2) Hypotension Current Visit: Yes Status: Acute Comment: #Mild hypotension: -Improved with IVF boluses and rate of IVF too slow for acute pancreatitis treatment in pt who otherwise has no history of cardiovascular problems -Continue IVF and watchful waiting (3) DKA, type 2 Current Visit: Yes Status: Acute Priority: High Code(s): E11.10 - TYPE 2 DIABETES MELLITUS WITH KETOACIDOSIS WITHOUT COMA SNOMED Code(s): 560535586 Comment: -Resolved -Continue ISS -Repeate CMP in AM (4) CKD (chronic kidney disease) stage 3, GFR 30-59 ml/min Current Visit: Yes Status: Acute Code(s): N18.3 - CHRONIC KIDNEY DISEASE, STAGE 3 (MODERATE) SNOMED Code(s): 022525227 Comment: Est GFR 44.3 02/03/18. Stable. (5) Smoker Current Visit: No Status: Chronic Priority: Medium Code(s): F17.200 - NICOTINE DEPENDENCE, UNSPECIFIED, UNCOMPLICATED SNOMED Code(s): 70119527 Comment: Pt advised to quit smoking and avoid second hand smoke. She refuses NRT, wants to quit. (6) HTN (hypertension) Current Visit: No Status: Acute Code(s): I10 - ESSENTIAL (PRIMARY) HYPERTENSION SNOMED Code(s): 55050015 Comment: #Hx of: -Lisinopril listed as adverse reaction. -May or may not need BP meds on discharge. -Please see above discussion as pt was mildly hypotensive today that improved with fluid boluses (7) UTI (urinary tract infection) Current Visit: Yes Status: Acute Comment: #E. coli UTI: -On Rocephin, Day #2/5--given sensitivity data, will D/C Rocephin and place on Cefazolin -Blood Cx (-)x3Days Status and Disposition: -For PT eval -As above
[2018-02-04] MEDS: ceFAZolin 1 GM ADVAN(*) 1 GM in NS 0.9% 50 ML* 50 ML IVPB SCH ×2 (16:31→21:27)
[2018-02-04] MEDS: Acetaminophen TAB* 325 MG PO SCH (21:29)
[2018-02-05] MEDS: Metoprolol Tartrate IV* 1 MG/ML 5 ML VIAL IV SCH ×4 (01:06→19:29)
[2018-02-05] MEDS: Insulin LISPRO* 1 UNITS UNIT SUBCUT SCH ×6 (01:53→21:09)
[2018-02-05] MEDS: NS 0.9% 1000 ML* 1,000 ML IV SCH ×3 (02:27→13:28)
[2018-02-05] MEDS: ceFAZolin 1 GM ADVAN(*) 1 GM in NS 0.9% 50 ML* 50 ML IVPB SCH ×4 (04:36→21:13)
[2018-02-05] MEDS: HYDROmorphone INJ1* 1 MG/ML SYRINGE IV SLOW PU PRN ×5 (04:51→23:35)
[2018-02-05] MEDS: Heparin VIAL(*) 5000 UNITS/ML VIAL (FIVE THOUSAND) SUBCUT SCH ×3 (05:41→21:09)
[2018-02-05 06:49] LABS: ABS Basophils 0 10^3/ul (0-0.2); ABS Eosinophils 0.4 10^3/ul (0-0.6); ABS Lymphocytes 1.2 10^3/ul (1.0-4.8); ABS Monocytes 0.4 10^3/ul (0-0.8); ABS Neutrophils 5.7 10^3/ul (1.5-7.7); ABS Nucleated RBC 0 10^3/ul; Eosinophil % 4.5 %; Hematocrit 29 % (35-47); Hemoglobin 9.3 g/dl (12.0-16.0); Mean Corpuscular HGB Conc 32 g/dl (31-36); Mean Corpuscular Hemoglobin 27 pg (27-31); Mean Corpuscular Volume 84 fL (80-97); Mean Platelet Volume 7.6 fL (7.4-10.4); Nucleated Red Blood Cells % 0; Platelet Count 209 10^3/ul (150-450); Red Blood Count 3.45 10^6/ul (4.00-5.40); Red Cell Distribution Width 15 % (10.5-15); White Blood Count 7.8 10^3/ul (3.5-10.8)
[2018-02-05 07:03] LABS: Albumin/Globulin Ratio 1.2 (1-3); BUN/Creatinine Ratio 6.2 (8-20); Calcium 8.1 mg/dL (8.6-10.3); EGFR African American 61.9 (>60); EGFR Non-African American 51.2 (>60); Globulin 2.5 g/dL (2-4); Magnesium 1.4 mg/dL (1.9-2.7); Phosphorus 2.7 mg/dL (2.5-5.0); Potassium 4.1 mmol/L (3.5-5.0); Total Bilirubin 0.1 mg/dL (0.2-1.0); Total Protein 5.5 g/dL (6.4-8.9)
[2018-02-05] MEDS: Acetaminophen TAB* 325 MG PO SCH ×2 (08:00→21:07)
[2018-02-05] MEDS: Gemfibrozil TAB* 600 MG PO SCH ×2 (08:01→21:08)
[2018-02-05] MEDS: ALPRAZolam TAB* 0.5 MG PO PRN (08:01)
[2018-02-05] MEDS: Ketorolac INJ* 30 MG/ML 1 ML VIAL IV PUSH SCH ×3 (08:07→21:04)
[2018-02-05] MEDS ORDERED: Magnesium Sulf 4 GM/100 ML IV* 4,000 MG/100 ML BAG IVPB ONE (09:15)
--- NOTE | 2018-02-05 13:21 | PN ---
Subjective Date of Service: 02/05/18 Interval History: Pt seen and examined. Meds and labs reviewed. CC: Abd pain primarily when ambulating. Tolerated clears and full liquid this breakfast. ROS: Denied PEDRAZA/dizziness, F/C, N/V, CP, SOB, increased cough, sputum production , abd pain, diarrhea, constipation, dysuria, myalgias, arthralgias, throat pain , and new skin lesions. The rest of the 14 point ROS are unremarkable. PHYSICAL EXAM: GEN APPEARANCE: Awake, not in acute distress HEENT: NC/AT, PERRLA, moist oral mucosa, (-) throat erythema NECK: Soft, supple, (-) cervical LAD, (-)JVD HEART: S1S2 WNL, RRR, No MRG CHEST: CTA, BL, GAE, No W/R/R ABD: Soft, ND/mild tender epigastric area, NABS 4x Q EXT: No C/C/E SKIN: Warm to touch PSYCH: No active psychosis, hallucinations, depression, SI/HI Family History: Unchanged from Admission Social History: Unchanged from Admission Past Medical History: Unchanged from Admission Objective Active Medications: Acetaminophen (Tylenol Tab*) 975 mg PO BID [facility] Last Admin: 02/05/18 08:00 Dose: 975 mg Albuterol (Ventolin 2.5 Mg/3 Ml Neb.Ashley*) 2.5 mg INH [id number] AWAKE PRN PRN Reason: sob/wheezing Alprazolam (Xanax Tab*) 0.5 mg PO Q6H PRN PRN Reason: ANXIETY Last Admin: 02/05/18 08:01 Dose: 0.5 mg Dextrose (D50w Syringe 50 Ml*) 12.5 gm IV PUSH .FOR FS < 60 - SS PRN PRN Reason: FS < 60 Gemfibrozil (Lopid Tab*) 600 mg PO BID [facility] Last Admin: 02/05/18 08:01 Dose: 600 mg Heparin Sodium (Porcine) (Heparin Vial(*)) 5,000 units SUBCUT Q8HR [facility] Last Admin: 02/05/18 05:41 Dose: 5,000 units Hydromorphone HCl (Dilaudid Inj1s*) 2 mg IV SLOW PU Q3H PRN PRN Reason: PAIN Last Admin: 02/05/18 10:26 Dose: 2 mg Cefazolin Sodium 1 gm/ Sodium (Chloride) 50 mls @ 200 mls/hr IVPB Q6H [facility] Last Admin: 02/05/18 08:06 Dose: 200 mls/hr Sodium Chloride (Ns 0.9% 1000 Ml*) 1,000 mls @ 75 mls/hr IV PER RATE [facility] Insulin Human Lispro (Humalog*) 0 units SUBCUT Q4HR [facility]; Protocol Last Admin: 02/05/18 08:05 Dose: Not Given Ketorolac Tromethamine (Toradol Inj*) 30 mg IV PUSH TID [facility] Stop: 02/06/18 13:59 Last Admin: 02/05/18 08:07 Dose: 30 mg Metoprolol Tartrate (Lopressor Iv*) 5 mg IV Q6H [facility] Last Admin: 02/05/18 08:07 Dose: Not Given Ondansetron HCl (Zofran Inj*) 4 mg IV Q4H PRN PRN Reason: NAUSEA/VOMITING Last Admin: 02/04/18 07:19 Dose: 4 mg Pantoprazole Sodium (Protonix Iv*) 40 mg IV Q24H [facility] Last Admin: 02/04/18 12:09 Dose: 40 mg Prochlorperazine Edisylate (Compazine Inj*) 10 mg IV Q6H PRN PRN Reason: NAUSEA/VOMITING Last Admin: 02/04/18 10:18 Dose: 10 mg Vital Signs - 8 hr 02/05/18 02/05/18 02/05/18 06:19 07:20 08:00 Temperature 98.0 F Pulse Rate 120 Respiratory 16 16 18 Rate Blood Pressure 133/78 (mmHg) O2 Sat by Pulse 99 Oximetry 02/05/18 02/05/18 02/05/18 08:01 10:26 11:41 Temperature 97.8 F Pulse Rate 102 Respiratory 18 18 16 Rate Blood Pressure 134/67 (mmHg) O2 Sat by Pulse 98 Oximetry 02/05/18 12:30 Temperature Pulse Rate Respiratory 18 Rate Blood Pressure (mmHg) O2 Sat by Pulse Oximetry Oxygen Devices in Use Now: None Result Diagrams: 02/05/18 06:30 02/05/18 06:30 Microbiology and Other Data: Microbiology 02/01/18 15:18 Nasal Screen MRSA (PCR) - Final Nasal Mrsa Not Detected Assess/Plan/Problems-Billing Assessment: 47 year old woman w/ recurrent pancreatitis, Type 2 diabetes, present with pancreatitis and DKA - Patient Problems (1) Acute pancreatitis Current Visit: Yes Status: Acute Code(s): K85.90 - ACUTE PANCREATITIS WITHOUT NECROSIS OR INFECTION, UNSP SNOMED Code(s): 242958187 Comment: -Likely multifactorial due to elevated TG close enough to 500 along with Lisinopril increasing likelihood of pancreatitis that likely lowers her threshold to have pancreatitis. In addition, Metformin in some instances can cause abd pain in absence of pancreatitis -Tolerated full liquid diet on breakfast but still have abdominal pain worse on ambulation; will continue to advance diet and consider D/C in AM if tolerates soft, low fat, low residue diet -Continue to hold Metformin and Lisinopril -Decrease IVF to 75/hr until re-evaluated in AM---cut off at 10 AM until re-eval -Continue Gemfibrozil -Continue Tylenol BID as ordered w/3.5g/day max -MRCP: S/P cholecystectomy; no choledocholithiasis; mild peripancreatic edema -Given peripancreatic edema, will place pt on Ketorolac TID x 1 more day -Lipase continues to improve (2) Hypotension Current Visit: Yes Status: Acute Comment: -Resolved -Continue IVF and watchful waiting (3) DKA, type 2 Current Visit: Yes Status: Acute Priority: High Code(s): E11.10 - TYPE 2 DIABETES MELLITUS WITH KETOACIDOSIS WITHOUT COMA SNOMED Code(s): 835583322 Comment: -Resolved -Continue ISS -Repeate CMP in AM (4) CKD (chronic kidney disease) stage 3, GFR 30-59 ml/min Current Visit: Yes Status: Acute Code(s): N18.3 - CHRONIC KIDNEY DISEASE, STAGE 3 (MODERATE) SNOMED Code(s): 461856390 Comment: Est GFR 44.3 02/03/18. Stable. (5) Smoker Current Visit: No Status: Chronic Priority: Medium Code(s): F17.200 - NICOTINE DEPENDENCE, UNSPECIFIED, UNCOMPLICATED SNOMED Code(s): 51690781 Comment: Pt advised to quit smoking and avoid second hand smoke. She refuses NRT, wants to quit. (6) HTN (hypertension) Current Visit: No Status: Acute Code(s): I10 - ESSENTIAL (PRIMARY) HYPERTENSION SNOMED Code(s): 38924584 Comment: #Hx of: -Lisinopril listed as adverse reaction. -May or may not need BP meds on discharge. -Please see above discussion as pt was mildly hypotensive today that improved with fluid boluses (7) UTI (urinary tract infection) Current Visit: Yes Status: Acute Comment: #E. coli UTI: -On Rocephin, Day #3/5--given sensitivity data, will D/C Rocephin and place on Cefazolin -Blood Cx (-)x3Days Status and Disposition: -For D/C home in AM if tolerates diet advancement
[2018-02-05] MEDS: Pantoprazole IV* 40 MG IV SCH (13:28)
[2018-02-05] MEDS: Ondansetron INJ* 2 MG/ML VIAL IV PRN (21:04)
[2018-02-06] MEDS: ALPRAZolam TAB* 0.5 MG PO PRN ×2 (01:31→11:48)
[2018-02-06] MEDS: Metoprolol Tartrate IV* 1 MG/ML 5 ML VIAL IV SCH ×2 (01:32→07:56)
[2018-02-06] MEDS: Insulin LISPRO* 1 UNITS UNIT SUBCUT SCH ×6 (01:34→22:53)
[2018-02-06] MEDS: ceFAZolin 1 GM ADVAN(*) 1 GM in NS 0.9% 50 ML* 50 ML IVPB SCH ×4 (03:27→21:11)
[2018-02-06] MEDS: NS 0.9% 1000 ML* 1,000 ML IV SCH ×2 (04:23→19:41)
[2018-02-06] MEDS: HYDROmorphone INJ1* 1 MG/ML SYRINGE IV SLOW PU PRN ×7 (06:02→22:47)
[2018-02-06] MEDS: Ondansetron INJ* 2 MG/ML VIAL IV PRN ×3 (06:12→20:32)
[2018-02-06] MEDS: Heparin VIAL(*) 5000 UNITS/ML VIAL (FIVE THOUSAND) SUBCUT SCH ×3 (06:13→21:13)
[2018-02-06] MEDS: Gemfibrozil TAB* 600 MG PO SCH ×2 (07:56→21:15)
[2018-02-06] MEDS: Ketorolac INJ* 30 MG/ML 1 ML VIAL IV PUSH SCH (07:57)
[2018-02-06] MEDS: Acetaminophen TAB* 325 MG PO SCH ×2 (07:57→21:13)
[2018-02-06 08:32] LABS: ABS Basophils 0.1 10^3/ul (0-0.2); ABS Eosinophils 0.3 10^3/ul (0-0.6); ABS Lymphocytes 1.2 10^3/ul (1.0-4.8); ABS Monocytes 0.4 10^3/ul (0-0.8); ABS Neutrophils 4.4 10^3/ul (1.5-7.7); ABS Nucleated RBC 0 10^3/ul; Eosinophil % 4.3 %; Hematocrit 30 % (35-47); Hemoglobin 9.8 g/dl (12.0-16.0); Lymphocyte % 19.2 %; Mean Corpuscular HGB Conc 33 g/dl (31-36); Mean Corpuscular Hemoglobin 27 pg (27-31); Mean Corpuscular Volume 83 fL (80-97); Mean Platelet Volume 7.7 fL (7.4-10.4); Nucleated Red Blood Cells % 0; Platelet Count 233 10^3/ul (150-450); Red Blood Count 3.59 10^6/ul (4.00-5.40); Red Cell Distribution Width 14 % (10.5-15); White Blood Count 6.3 10^3/ul (3.5-10.8)
[2018-02-06] MEDS ORDERED: Metoprolol Succinate XL TAB* 25 MG PO SCH (09:00)
[2018-02-06] MEDS ORDERED: amLODIPine TAB* 5 MG PO SCH (09:00)
[2018-02-06 09:05] LABS: Albumin 3.3 g/dL (3.2-5.2); Albumin/Globulin Ratio 1.2 (1-3); BUN/Creatinine Ratio 6.7 (8-20); Calcium 8.9 mg/dL (8.6-10.3); EGFR African American 67.4 (>60); EGFR Non-African American 55.7 (>60); Globulin 2.7 g/dL (2-4); Magnesium 1.9 mg/dL (1.9-2.7); Phosphorus 2.5 mg/dL (2.5-5.0); Potassium 3.6 mmol/L (3.5-5.0); Total Bilirubin 0.2 mg/dL (0.2-1.0)
[2018-02-06] MEDS ORDERED: Metoprolol Succinate XL TAB* 50 MG PO ONE (10:00)
[2018-02-06] MEDS ORDERED: oxyCODONE/Acetamin 10/325(NF) TAB PO PRN (10:38)
[2018-02-06] MEDS: oxyCODONE/Acetamin 5/325 MG* TAB PO PRN ×2 (11:02→17:25)
[2018-02-06] MEDS: oxyCODONE TAB* 5 MG TAB PO PRN ×2 (11:02→17:24)
[2018-02-06] MEDS: Gabapentin CAP(*) 100 MG PO SCH ×3 (11:48→21:14)
[2018-02-06] MEDS ORDERED: Iodixanol* (CONTRAST) 320 MG/ML 100 ML SDV IV ONE (12:53)
[2018-02-06] MEDS: amLODIPine TAB* 5 MG PO SCH (13:15)
[2018-02-06] MEDS ORDERED: HYDROmorphone INJ* 1 MG/ML CARPUJECT SYRINGE IV SLOW PU PRN (13:36)
--- NOTE | 2018-02-06 14:02 | PN ---
Subjective Date of Service: 02/06/18 Interval History: Pt seen and examined. Meds and labs reviewed. CC: Pt mentioned she tolerated her diet and was in good spirits wanting to go home. Unfortunately, a few hours later, as her discharge was being prepared, she ambulated and had significant abdominal pain and VS reveals elevated BP. ROS: Denied PEDRAZA/dizziness, F/C, N/V, CP, SOB, increased cough, sputum production , abd pain, diarrhea, constipation, dysuria, myalgias, arthralgias, throat pain , and new skin lesions. The rest of the 14 point ROS are unremarkable. PHYSICAL EXAM: GEN APPEARANCE: Awake, not in acute distress HEENT: NC/AT, PERRLA, moist oral mucosa, (-) throat erythema NECK: Soft, supple, (-) cervical LAD, (-)JVD HEART: S1S2 WNL, RRR, No MRG CHEST: CTA, BL, GAE, No W/R/R ABD: Soft, ND/mild tender epigastric area, NABS 4x Q EXT: No C/C/E SKIN: Warm to touch PSYCH: No active psychosis, hallucinations, depression, SI/HI Family History: Unchanged from Admission Social History: Unchanged from Admission Past Medical History: Unchanged from Admission Objective Active Medications: Acetaminophen (Tylenol Tab*) 975 mg PO BID [facility] Last Admin: 02/06/18 07:57 Dose: 975 mg Albuterol (Ventolin 2.5 Mg/3 Ml Neb.Ashley*) 2.5 mg INH [id number] AWAKE PRN PRN Reason: sob/wheezing Alprazolam (Xanax Tab*) 0.5 mg PO Q6H PRN PRN Reason: ANXIETY Last Admin: 02/06/18 11:48 Dose: 0.5 mg Amlodipine Besylate (Norvasc Tab*) 5 mg PO DAILY [facility] Last Admin: 02/06/18 13:15 Dose: 5 mg Dextrose (D50w Syringe 50 Ml*) 12.5 gm IV PUSH .FOR FS < 60 - SS PRN PRN Reason: FS < 60 Gabapentin (Neurontin Cap(*)) 200 mg PO TID [facility] Last Admin: 02/06/18 11:48 Dose: 200 mg Gemfibrozil (Lopid Tab*) 600 mg PO BID [facility] Last Admin: 02/06/18 07:56 Dose: 600 mg Heparin Sodium (Porcine) (Heparin Vial(*)) 5,000 units SUBCUT Q8HR [facility] Last Admin: 02/06/18 06:13 Dose: 5,000 units Hydromorphone HCl (Dilaudid Inj1s*) 2 mg IV SLOW PU Q3H PRN PRN Reason: PAIN Last Admin: 02/06/18 11:48 Dose: 1 mg Hydromorphone HCl (Dilaudid Inj*) 1 mg IV SLOW PU Q3H PRN PRN Reason: PAIN Cefazolin Sodium 1 gm/ Sodium (Chloride) 50 mls @ 200 mls/hr IVPB Q6H [facility] Last Admin: 02/06/18 10:53 Dose: 200 mls/hr Sodium Chloride (Ns 0.9% 1000 Ml*) 1,000 mls @ 100 mls/hr IV PER RATE [facility] Insulin Human Lispro (Humalog*) 0 units SUBCUT Q4HR [facility]; Protocol Last Admin: 02/06/18 10:54 Dose: 1 units Ketorolac Tromethamine (Toradol Inj*) 30 mg IV PUSH TID [facility] Stop: 02/06/18 13:59 Last Admin: 02/06/18 07:57 Dose: 30 mg Metoprolol Succinate (Toprol Xl Tab*) 50 mg PO DAILY [facility] Ondansetron HCl (Zofran Inj*) 4 mg IV Q4H PRN PRN Reason: NAUSEA/VOMITING Last Admin: 02/06/18 11:48 Dose: 4 mg Oxycodone HCl (Roxycodone Tab*) 5 mg PO Q4H PRN PRN Reason: PAIN Last Admin: 02/06/18 11:02 Dose: 5 mg Oxycodone/Acetaminophen (Percocet 5/325 Tab*) 1 tab PO Q4H PRN PRN Reason: PAIN Last Admin: 02/06/18 11:02 Dose: 1 tab Pantoprazole Sodium (Protonix Iv*) 40 mg IV Q24H [facility] Last Admin: 02/05/18 13:28 Dose: 40 mg Prochlorperazine Edisylate (Compazine Inj*) 10 mg IV Q6H PRN PRN Reason: NAUSEA/VOMITING Last Admin: 02/04/18 10:18 Dose: 10 mg Vital Signs - 8 hr 02/06/18 02/06/1802/06/18 06:02 07:02 07:28 Temperature 98.4 F Pulse Rate 97 Respiratory 18 18 16 Rate Blood Pressure 167/100 (mmHg) O2 Sat by Pulse 100 Oximetry 02/06/18 02/06/18 02/06/18 08:00 11:02 11:25 Temperature 98.4 F Pulse Rate 100 Respiratory 16 18 16 Rate Blood Pressure 202/116 (mmHg) O2 Sat by Pulse 98 Oximetry 02/06/18 02/06/18 02/06/18 11:48 12:48 13:02 Temperature Pulse Rate Respiratory 20 20 20 Rate Blood Pressure (mmHg) O2 Sat by Pulse Oximetry Oxygen Devices in Use Now: None Result Diagrams: 02/06/18 07:54 02/06/18 07:54 Microbiology and Other Data: Microbiology 02/01/18 15:18 Nasal Screen MRSA (PCR) - Final Nasal Mrsa Not Detected Assess/Plan/Problems-Billing Assessment: 47 year old woman w/ recurrent pancreatitis, Type 2 diabetes, present with pancreatitis and DKA - Patient Problems (1) Acute pancreatitis Current Visit: Yes Status: Acute Code(s): K85.90 - ACUTE PANCREATITIS WITHOUT NECROSIS OR INFECTION, UNSP SNOMED Code(s): 089491601 Comment: -Likely multifactorial due to elevated TG close enough to 500 along with Lisinopril increasing likelihood of pancreatitis that likely lowers her threshold to have pancreatitis. In addition, Metformin in some instances can cause abd pain in absence of pancreatitis -Tolerated full liquid diet on breakfast but still have abdominal pain worse on ambulation; will continue to advance diet and consider D/C in AM if tolerates soft, low fat, low residue diet -Continue to hold Metformin and Lisinopril -Will increase NS rate -Continue Gemfibrozil -Continue Tylenol BID as ordered w/3.5g/day max -MRCP: S/P cholecystectomy; no choledocholithiasis; mild peripancreatic edema -Given peripancreatic edema, continue Ketorolac for today -Lipase continues to improve (2) Abdominal pain Current Visit: No Status: Acute Code(s): R10.9 - UNSPECIFIED ABDOMINAL PAIN SNOMED Code(s): 41781531 Comment: #Persistent abd pain: -Amylase and lipase---both low to WNL -Ordered CT of abd/pelvis to further evaluate for pseudocyst formation vs worsening peripancreatic edema -Given low to WNL pancreatic enzymes, possibility of chronic pancreatitis is in differential given her reccurent bouts of acute pancreatitis, although MRCP done was silent on any signs of this---defer w/GI -Given pain accompanied by significant HTN and anxiety, will check urine PBG to screen for acute porphyrias -Obtained LDH and Lactic acid levels to screen for significant mesenteric ischemia given pain exacerbates on exertion/ambulation -Discussed above w/Dr. Stoll for possibility of gastritis/esophagitis/PUD that may need EGD? Will await any further input and will defer (3) Hypotension Current Visit: Yes Status: Acute Comment: -Resolved -Continue IVF and watchful waiting (4) DKA, type 2 Current Visit: Yes Status: Acute Priority: High Code(s): E11.10 - TYPE 2 DIABETES MELLITUS WITH KETOACIDOSIS WITHOUT COMA SNOMED Code(s): 850473692 Comment: -Resolved -Continue ISS (5) CKD (chronic kidney disease) stage 3, GFR 30-59 ml/min Current Visit: Yes Status: Acute Code(s): N18.3 - CHRONIC KIDNEY DISEASE, STAGE 3 (MODERATE) SNOMED Code(s): 404602201 Comment: Est GFR 44.3 02/03/18. Stable. (6) Smoker Current Visit: No Status: Chronic Priority: Medium Code(s): F17.200 - NICOTINE DEPENDENCE, UNSPECIFIED, UNCOMPLICATED SNOMED Code(s): 33315221 Comment: Pt advised to quit smoking and avoid second hand smoke. She refuses NRT, wants to quit. (7) HTN (hypertension) Current Visit: No Status: Acute Code(s): I10 - ESSENTIAL (PRIMARY) HYPERTENSION SNOMED Code(s): 58657276 Comment: #Hx of: -Lisinopril listed as adverse reaction. -May or may not need BP meds on discharge. (8) UTI (urinary tract infection) Current Visit: Yes Status: Acute Comment: #E. coli UTI: -On Rocephin, Day #4/5--given sensitivity data, will D/C Rocephin and place on Cefazolin -Blood Cx (-)x4Days Status and Disposition: -As above
[2018-02-06] MEDS: Pantoprazole IV* 40 MG IV SCH (15:39)
[2018-02-06 17:58] LABS: C Reactive Protein 87.2 mg/L (<8.01)
[2018-02-06 17:58] LABS: C Reactive Protein 52.2 mg/L (<8.01)
--- NOTE | 2018-02-06 20:52 | CONS ---
GASTROENTEROLOGY FOLLOWUP CONSULT: DATE: CONSULTING PHYSICIAN: Brandon Daniels REASON FOR CONSULTATION: Continuing abdominal pain LUQ to flank with lipase normal for 2d and CT negative for pancreatitis complication with etiology of pancreatitis uncertain (non drinking postcholecystectomy pt) HISTORY: This 47-year-old woman with longstanding adult-onset diabetes, on insulin since 2009 ([facility]); morbid obesity (now 197 to 210); status post cholecystectomy at age 14 (when she was and weighed 280), was admitted [facility] with lipase elevation of 4985. She had only a minimal stranding about the pancreas on MRCP a couple of days later and then had a CT scan with IV contrast today. She was treated conservatively and lipase came down rapidly. Yesterday, she was said to be doing a little better, eating sparingly. She did complain of some left upper quadrant pain radiating around to the back which was worse with ambulation on a couple of walks. She gives somewhat different histories to different listeners. She said she was anticipating going home today, so tried not to take any pain medicine through the night and had a poor and restless night. This morning, she had half a bagel, but just did not have any appetite. Since admission, her metformin has been held and lisinopril changed to other agents as it was under consideration that the drugs were related to pancreatitis (Up To Date category 3). On admission, her triglycerides were 477 , which is the highest she has had over 5 determinations over the last 6 years. She did have a level of 422 on 01/13/18 during the recent previous admission. Later she recalled that in [place] at the time the AODM was first diagnosed ( wgt 280 glucose 500) her triglycerides were 999. She does not recall any other numbers of TG and says she was never on any lipid lowering therapy from the [facility] or Dr Yemi Huber primary MD (she is switching to another MD in the same office in February) Another consideration for the pancreatitis explanation was obtaining an MRCP, which on 02/03/18 showed no common duct filling defect. The common duct was mildly prominent (though she is post cholecystectomy). The pancreatic duct was not specifically commented on, but appears slender and without focal dilations. Additionally, overnight, her blood pressure was more difficult to control and today the diastolics have been running anywhere between 95 and 115. She has been changed from lisinopril to more of metoprolol. She says her first diagnosis of pancreatitis was made when she had upper abd pain radiating to the back ([facility]), though she cannot remember when. She followed up with a specialty clinic there. It is unclear when lisinopril or metformin was started vis-a-vis the first pancreatitis. PAST MEDICAL HISTORY: 1. Morbid obesity - she was as much as 290 to 300 and then has lost 80 or 90 pounds in the last couple of years. 2. Chronic renal disease - atrophic left kidney - urinalysis 02/02/18 was cloudy, specific gravity 1.014, protein negative, blood 1+, 2+ esterase, 3+ white cells, 1+ red cells, total volume 2100. 3. Hypertension 4. AODM - see above PAST SURGICAL HISTORY: 1. Status post cholecystectomy - she states there were 82 stones. 2. Status post hysterectomy. 3. Status post appendectomy. SOCIAL HISTORY: Her health insurance lapsed this fall she said when her got a small raise. They are qualifying for insurance through the exchange to start 02/09/18. REVIEW OF SYSTEMS: She had a negative nuclear stress test in June 2017 at [facility] (in other facility information). When asked, she cannot say exactly how she determines which hospital to follow up with. No history of CVA, seizure, syncope, hepatitis, TB, [place], rectal bleeding. PHYSICAL EXAM: She is a morbidly obese woman, lying in bed. She appears somewhat distraught and teary with recurrent flares of emotionality, but was not initially in any cardiorespiratory distress or in any obvious pain. She indicates there is pain in the left upper quadrant and motions around to the left flank. There is some ecchymosis around the umbilicus. Bowel sounds are normal listening over a minute at all 4 quadrants. There is no particular guarding. Chest exam negative DIAGNOSTIC STUDIES/LAB DATA: CT scan - minimal change around the pancreas. Laboratory trends -Lipase normal the last two days. LFTs showed no particular abnormality or trend, though the alkaline phosphatase is minimally elevated at 108 today. ALT is entirely normal. Her white count that was 20,000 on admission has fallen sequentially each day and is 6.3 today, having been 7.8 yesterday. Admission A1c was 8.8, albumin 3.3. IMPRESSION: This 47-year-old woman with morbid obesity and longstanding type 2 diabetes, presents with a number of questions. One is what is causing the abdominal pain at this time and another is what has caused this rather striking episode of pancreatitis with a lipase of 4900 as she is still listed as idiopathic. Her first elevation in lipase here was January 2014 when the lipase was at presentation 283. It was elected not to work that up specifically as it appeared that she had a renal explanation for abdominal pain. The discharge summary refers to opting instead to challenging her with a meal and she tolerated that well and the lipase normalized nonetheless. There was a similar minimal elevation of lipase 3-1/2 weeks ago at 220 and similarly that was not felt to be the chief issue and she was fed and did well. She was complaining of dysphagia at that time and Dr Phan did an upper endoscopy, which appeared to have been normal. Esophageal and duodenal biopsies at that time were normal. Thus, this episode of pancreatitis is by far the best documented and it appears biochemically and radiographically to have resolved. At this time, decisions are complex. My feeling is that the pancreatitis most likely is predominantly metabolic in origin related to the triglyceride elevation at a time when a glucose elevation close to 500 is present so I agree with starting Lopid. She is motivated to continue to lose weight. At presentation this time, her bicarb was down to 15 and is notable that during a prior admission in September 2014 the bicarb was as low as 13. Whether the suspect meds play a synergistic role with the TG is uncertain. However a metabolic explanation appears more likely than the pancreatitis having been caused exclusively by lisinopril or especially metformin. Nonetheless, it is understandable that those medications would be looked at closely in an attempt to leave no stone unturned. It could be of interest if the circumstances of the initial bout of pancreatitis cared for at [facility] could be obtained. There is no evidence it would seem that she has a structural or anatomic cause for pancreatitis. Regarding the persistent pain I do not believe it is from the pancreatitis or any complication. Ruling out musculoskeletal or ureteral cause of the LUQ/flank pain is difficult. She had pain clinic and neuro consults last admission so clearly this has been an ongoing challenge. My suggestion is to feed her a low- fat diet and see how that goes. If diabetic or blood pressure control proves elusive giving the medications that are under some suspect could be in my view still considered especially metformin. [id number]/[facility] #: [id number] JELENA
[2018-02-07] MEDS: Insulin LISPRO* 1 UNITS UNIT SUBCUT SCH ×6 (02:37→22:20)
[2018-02-07] MEDS: ceFAZolin 1 GM ADVAN(*) 1 GM in NS 0.9% 50 ML* 50 ML IVPB SCH ×4 (05:15→22:05)
[2018-02-07] MEDS: NS 0.9% 1000 ML* 1,000 ML IV SCH (05:52)
[2018-02-07] MEDS: oxyCODONE/Acetamin 5/325 MG* TAB PO PRN ×4 (06:42→22:24)
[2018-02-07] MEDS: Heparin VIAL(*) 5000 UNITS/ML VIAL (FIVE THOUSAND) SUBCUT SCH ×3 (06:43→22:05)
[2018-02-07] MEDS: oxyCODONE TAB* 5 MG TAB PO PRN ×4 (06:43→22:23)
[2018-02-07] MEDS: Acetaminophen TAB* 325 MG PO SCH ×2 (08:57→22:02)
[2018-02-07] MEDS: Gemfibrozil TAB* 600 MG PO SCH ×2 (08:57→22:05)
[2018-02-07] MEDS: Gabapentin CAP(*) 100 MG PO SCH ×3 (08:58→22:04)
[2018-02-07] MEDS: Metoprolol Succinate XL TAB* 50 MG PO SCH (08:58)
[2018-02-07] MEDS: amLODIPine TAB* 5 MG PO SCH (08:59)
[2018-02-07] MEDS ORDERED: hydrALAZINE IV* 20 MG/ML VIAL IV SLOW PU PRN (12:26)
[2018-02-07] MEDS ORDERED: amLODIPine TAB* 5 MG PO ONE (12:26)
[2018-02-07] MEDS: Pantoprazole IV* 40 MG IV SCH (12:43)
[2018-02-07] MEDS ORDERED: Isosorbide Mononitrate ER TAB* 30 MG PO ONE (16:32)
--- NOTE | 2018-02-07 16:54 | PN ---
Subjective Date of Service: 02/07/18 Interval History: Pain improved, currently 4/10 No dilaudid > 24 hrs Interested in going home but BP >180 today requiring IV intervention Family History: Unchanged from Admission Social History: Unchanged from Admission Past Medical History: Unchanged from Admission Objective Active Medications: Acetaminophen (Tylenol Tab*) 975 mg PO BID [facility] Last Admin: 02/07/18 08:57 Dose: 975 mg Albuterol (Ventolin 2.5 Mg/3 Ml Neb.Ashlye*) 2.5 mg INH [id number] AWAKE PRN PRN Reason: sob/wheezing Alprazolam (Xanax Tab*) 0.5 mg PO Q6H PRN PRN Reason: ANXIETY Last Admin: 02/06/18 11:48 Dose: 0.5 mg Amitriptyline HCl (Elavil Tab*) 300 mg PO BEDTIME [facility] Amlodipine Besylate (Norvasc Tab*) 10 mg PO DAILY [facility] Dextrose (D50w Syringe 50 Ml*) 12.5 gm IV PUSH .FOR FS < 60 - SS PRN PRN Reason: FS < 60 Gabapentin (Neurontin Cap(*)) 200 mg PO TID [facility] Last Admin: 02/07/18 12:42 Dose: 200 mg Gemfibrozil (Lopid Tab*) 600 mg PO BID [facility] Last Admin: 02/07/18 08:57 Dose: 600 mg Heparin Sodium (Porcine) (Heparin Vial(*)) 5,000 units SUBCUT Q8HR [facility] Last Admin: 02/07/18 12:43 Dose: 5,000 units Hydralazine HCl (Apresoline Iv*) 5 mg IV SLOW PU Q6H PRN PRN Reason: SYSTOLIC BP GREATER THAN: Last Admin: 02/07/18 12:42 Dose: 5 mg Hydromorphone HCl (Dilaudid Inj1s*) 2 mg IV SLOW PU Q3H PRN PRN Reason: PAIN Last Admin: 02/06/18 22:47 Dose: 1 mg Hydromorphone HCl (Dilaudid Inj1s*) 1 mg IV SLOW PU Q3H PRN PRN Reason: PAIN Last Admin: 02/06/18 21:16 Dose: 1 mg Cefazolin Sodium 1 gm/ Sodium (Chloride) 50 mls @ 200 mls/hr IVPB Q6H [facility] Last Admin: 02/07/18 16:18 Dose: 200 mls/hr Insulin Human Lispro (Humalog*) 0 units SUBCUT Q4HR [facility]; Protocol Last Admin: 02/07/18 14:26 Dose: 3 units Isosorbide Mononitrate (Imdur Er Tab*) 30 mg PO DAILY [facility] Metoprolol Succinate (Toprol Xl Tab*) 50 mg PO DAILY [facility] Last Admin: 02/07/18 08:58 Dose: 50 mg Ondansetron HCl (Zofran Inj*) 4 mg IV Q4H PRN PRN Reason: NAUSEA/VOMITING Last Admin: 02/06/18 20:32 Dose: 4 mg Oxycodone HCl (Roxycodone Tab*) 5 mg PO Q4H PRN PRN Reason: PAIN Last Admin: 02/07/18 16:34 Dose: 5 mg Oxycodone/Acetaminophen (Percocet 5/325 Tab*) 1 tab PO Q4H PRN PRN Reason: PAIN Last Admin: 02/07/18 16:34 Dose: 1 tab Pantoprazole Sodium (Protonix Iv*) 40 mg IV Q24H [facility] Last Admin: 02/07/18 12:43 Dose: 40 mg Prochlorperazine Edisylate (Compazine Inj*) 10 mg IV Q6H PRN PRN Reason: NAUSEA/VOMITING Last Admin: 02/04/18 10:18 Dose: 10 mg Vital Signs - 8 hr 02/07/18 02/07/18 02/07/18 08:58 10:48 10:50 Temperature Pulse Rate Respiratory 18 16 16 Rate Blood Pressure (mmHg) O2 Sat by Pulse Oximetry 02/07/18 02/07/18 02/07/18 11:37 12:42 12:43 Temperature 98.3 F Pulse Rate 89 Respiratory 16 16 16 Rate Blood Pressure 178/111 (mmHg) O2 Sat by Pulse 100 Oximetry 02/07/18 02/07/18 02/07/18 12:44 12:45 16:34 Temperature Pulse Rate Respiratory 16 16 18 Rate Blood Pressure (mmHg) O2 Sat by Pulse Oximetry Oxygen Devices in Use Now: None Appearance: NAD Eyes: No Scleral Icterus Ears/Nose/Mouth/Throat: NL Teeth, Lips, Gums, Clear Oropharnyx Neck: NL Appearance and Movements; NL JVP, Trachea Midline Respiratory: Symmetrical Chest Expansion and Respiratory Effort, Clear to Auscultation Cardiovascular: NL Sounds; No Murmurs; No JVD, RRR Abdominal: - - TTP LUQ Lymphatic: No Cervical Adenopathy Extremities: No Edema Skin: No Rash or Ulcers Neurological: Alert and Oriented x 3 Result Diagrams: 02/06/18 07:54 02/06/18 07:54 Microbiology and Other Data: Microbiology 02/01/18 15:18 Nasal Screen MRSA (PCR) - Final Nasal Mrsa Not Detected Assess/Plan/Problems-Billing Assessment: 47 year old woman w/ recurrent pancreatitis, Type 2 diabetes, present with pancreatitis and DKA - Patient Problems (1) Diabetes type 2, uncontrolled Comment: hold metformin 2/2 concern for contribution to pancreatitis trial 2.5 glipizide (2) Hypertension Comment: stopped lisinopril 2/2 concern for contribution to pancreatitis metoprolol increase norvasc add imdur (3) Acute pancreatitis Comment: -Likely multifactorial due to elevated TG close enough to 500 along with Lisinopril increasing likelihood of pancreatitis that likely lowers her threshold to have pancreatitis. In addition, Metformin in some instances can cause abd pain in absence of pancreatitis -Tolerated full liquid diet on breakfast but still have abdominal pain worse on ambulation; will continue to advance diet and consider -Continue to hold Metformin and Lisinopril -Continue Gemfibrozil -Continue Tylenol BID as ordered w/3.5g/day max -MRCP: S/P cholecystectomy; no choledocholithiasis; mild peripancreatic edema -Given peripancreatic edema, continue Ketorolac for today -Lipase continues to improve Status and Disposition: -As above
[2018-02-07] MEDS ORDERED: glipiZIDE TAB.XL* 2.5 MG PO ONE (16:56)
[2018-02-07] MEDS ORDERED: Amitriptyline TAB* 100 MG PO SCH (21:00)
[2018-02-08] MEDS: Insulin LISPRO* 1 UNITS UNIT SUBCUT SCH ×6 (03:48→14:32)
[2018-02-08] MEDS: ceFAZolin 1 GM ADVAN(*) 1 GM in NS 0.9% 50 ML* 50 ML IVPB SCH ×3 (03:50→16:04)
[2018-02-08] MEDS: Heparin VIAL(*) 5000 UNITS/ML VIAL (FIVE THOUSAND) SUBCUT SCH ×2 (06:43→13:50)
[2018-02-08] MEDS: oxyCODONE/Acetamin 5/325 MG* TAB PO PRN ×2 (08:02→13:50)
[2018-02-08] MEDS: oxyCODONE TAB* 5 MG TAB PO PRN ×2 (08:02→13:51)
[2018-02-08] MEDS: Acetaminophen TAB* 325 MG PO SCH (08:03)
[2018-02-08] MEDS: Gabapentin CAP(*) 100 MG PO SCH ×2 (08:03→13:51)
[2018-02-08] MEDS: Gemfibrozil TAB* 600 MG PO SCH (08:03)
[2018-02-08] MEDS: Metoprolol Succinate XL TAB* 50 MG PO SCH (08:04)
[2018-02-08] MEDS ORDERED: amLODIPine TAB* 5 MG PO SCH (09:00)
[2018-02-08] MEDS ORDERED: Isosorbide Mononitrate ER TAB* 30 MG PO SCH (09:00)
[2018-02-08] MEDS ORDERED: Insulin LISPRO* 1 UNITS UNIT SUBCUT SCH (10:40)
[2018-02-08] MEDS ORDERED: Insulin GLARGINE(*) 1 UNITS UNIT SUBCUT SCH (11:00)
[2018-02-08] MEDS: Pantoprazole IV* 40 MG IV SCH (13:50)
[2018-02-08 15:35] VITALS: BP 177/92
--- NOTE | 2018-02-09 09:03 | DS ---
CC: Dr. Bragg at [facility].* DISCHARGE SUMMARY: DATE OF ADMISSION: 02/01/18 DATE OF DISCHARGE: 02/08/18 PRIMARY DIAGNOSES: 1. Acute pancreatitis. 2. Acute kidney failure. SECONDARY DIAGNOSES: 1. Insulin-dependent diabetes mellitus. 2. Essential hypertension. 3. Hypertriglyceridemia. MEDICATIONS AT DISCHARGE: Include: 1. Famotidine 20 mg daily as needed. 2. Amitriptyline 300 mg at bedtime. 3. Oxycodone 5 mg every 4 hours as needed, dispense 30 tabs. 4. Amlodipine 10 mg daily. 5. Metoprolol succinate XL 50 mg daily. 6. Isosorbide mononitrate 30 mg daily. 7. Insulin glargine 30 units daily. 8. Gemfibrozil 600 mg twice daily. 9. Gabapentin 200 mg 3 times daily. Please note the addition of metoprolol, amlodipine, isosorbide, gemfibrozil, and glargine, discontinuation of lisinopril as well as metformin. Rationale is further delineated below in the body of this report. PERTINENT IMAGING PERFORMED DURING HOSPITAL STAY: MRCP, impression: Cholecystectomy without evidence for cholelithiasis. Mild peripancreatic edema. No loculated peripancreatic fluid collection. CT abdomen and pelvis, impression: Mild peripancreatic inflammation without significant interval change since MRCP, no peripancreatic loculated fluid evident. PERTINENT LABORATORY DATA: White blood cell count on presentation 20.4, on discharge 6.3. Lipase on presentation 4985; creatinine on presentation 2.29, on discharge 1.05; triglycerides 477. HISTORY OF PRESENT ILLNESS AND HOSPITAL COURSE: This is a 47-year-old female with past medical history of chronic pancreatitis without clear etiology or cause presented to the hospital with abdominal pain consistent with previous episodes of pancreatitis. In the past, her lipase had been not significantly elevated, however, on this episode, it was clear her lipase was significantly elevated consistent with pancreatitis as well as CT correlate with evidence of pancreatitis. MRCP with results as indicated above as well as followup CAT scan 3 days prior. Etiology remained elusive. There was some thought that metformin and/or lisinopril had been described as medications that contributed medication- induced pancreatitis, although medication-induced pancreatitis does occur in less than 5% of all cases. For this reason, her lisinopril was discontinued and metformin was additionally discontinued. She was restarted on Lantus, which had previously been discontinued prior to her admission secondary to loss of her insurance, which she notes will be reinstated at the first of the year, which is tomorrow. After discontinuation of her lisinopril, her blood pressure was uncontrolled with systolic blood pressure as high as 205. She was added amlodipine, Imdur, and metoprolol added sequentially until blood pressure was well controlled. Attention toward blood pressure control as well as diabetes control should be pain attention on discharge. Additionally, Lopid was started as an effort to manage her hypertriglyceridemia. There are no complications during the course of the hospital stay. She will be followed up for her triglycerides as well as blood sugar and pressure control secondary to the changes made as above. Reasons to return to the hospital included but not limited to nausea, vomiting, lightheadedness, loss of consciousness . TIME SPENT: Greater than 60 minutes was spent on the discharge of this patient , greater than half was spent [id number] with the patient. [id number]/[facility] #: [id number] JELENA
== END 2018-02-08 16:50 | disposition home or self-care (01) | DRG 438 ==
LOC: ED 10:07 → ICU 13:20 → MED 02-02 10:45
PROVIDERS: ADMIT Hospitalist; ATTEND Internal Medicine
DX: K85.90 Acute pancreatitis without necrosis or infection, unspecified (principal); E11.10 Type 2 diabetes mellitus with ketoacidosis without coma; N17.9 Acute kidney failure, unspecified; N18.4 Chronic kidney disease, stage 4 (severe); N39.0 Urinary tract infection, site not specified; F32.9 Major depressive disorder, single episode, unspecified; F41.9 Anxiety disorder, unspecified; I12.9 Hypertensive chronic kidney disease with stage 1 through stage 4 chronic kidney disease, or unspecified chronic kidney disease; F17.210 Nicotine dependence, cigarettes, uncomplicated; E11.65 Type 2 diabetes mellitus with hyperglycemia; E86.0 Dehydration; K21.9 Gastro-esophageal reflux disease without esophagitis; M79.7 Fibromyalgia; K86.1 Other chronic pancreatitis; E66.9 Obesity, unspecified; E78.1 Pure hyperglyceridemia; I95.9 Hypotension, unspecified; B96.20 Unspecified Escherichia coli [E. coli] as the cause of diseases classified elsewhere; Z87.442 Personal history of urinary calculi; Z90.710 Acquired absence of both cervix and uterus; Z90.49 Acquired absence of other specified parts of digestive tract; Z82.3 Family history of stroke; Z83.3 Family history of diabetes mellitus; Z80.3 Family history of malignant neoplasm of breast; Z86.718 Personal history of other venous thrombosis and embolism; Z82.49 Family history of ischemic heart disease and other diseases of the circulatory system; Z81.1 Family history of alcohol abuse and dependence; Z79.4 Long term (current) use of insulin; Z68.33 Body mass index [BMI] 33.0-33.9, adult
CPT/HCPCS: 36415; 74177; 74181; 76376; 76700; 80048; 80053; 80061; 81003; 81015; 82043; 82150; 82570; 82803; 82947; 83036; 83605; 83615; 83690; 83721; 83735; 84100; 84110; 85025; 86140; 87040; 87077; 87086; 87186; 87641; 93005; 99284; 99406; A9270-GY; J0360; J0690; J0696; J0780; J1170; J1644; J1815; J1885; J2405; J2543; J3475; J3480; J3490; Q9967